=== PATIENT | female | born 1960 | race Caucasian/White ===

== ENCOUNTER 2024-05-04 14:41 | Outpatient (CLI) | payer MEDICARE, OTHER, SELFPAY ==
[2024-05-04 15:03] VITALS: BMI 22.4
[2024-05-04 15:34] LABS: Basophils # 0.1 K/mm3 (0-0.2); Eosinophils # 0.1 K/mm3 (0.0-0.4); Eosinophils % 1.8 % (0.1-12.0); Hematocrit 43.3 % (37.0-47.0); Hemoglobin 14.2 g/dL (12.2-16.2); Lymphocytes # 4.1 K/mm3 (0.7-4.5); Lymphocytes % 56.8 % (10-50); Mean Corpuscular HGB Conc 32.8 g/dL (31.8-35.4); Mean Corpuscular Hemoglobin 33.1 pg (27.0-31.2); Mean Platelet Volume 8.1 fl (7.4-10.4); Monocytes # 0.2 K/mm3 (0.1-1.0); Monocytes % 2.8 % (1.7-9.3); Neutrophils # 2.7 K/mm3 (1.8-7.8); Neutrophils % 37.5 % (37.0-80.0); Platelet Count 195 K/mm3 (142-424); Red Blood Count 4.28 M/mm3 (4.20-5.40); Red Cell Distribution Width 13.4 % (11.5-17.5); White Blood Count 7.2 K/mm3 (4.8-10.8)
[2024-05-04 15:35] LABS: MANUAL DIFFERENTIAL MANUAL DIFFERENTIAL (MANUAL DIFF)
--- NOTE | 2024-05-04 15:35 | PC.NURSE ---
1518 CBC/CMP obtained per MD order via venipuncture to R AC x 1 stick with butterfly needle. Patient tolerated well.
[2024-05-04 15:44] LABS: Chloride 103 mmol/L (98-107); Potassium 4.1 mmoL/L (3.5-5.1); Sodium 141 mmol/L (136-145)
[2024-05-04 15:47] LABS: Alanine Aminotransferase 37 U/L (12-78); Albumin Level 4.5 g/dl (3.5-5.0); Albumin/Globulin Ratio 1.5 (1.1-1.8); Alkaline Phosphatase 131 U/L (38-126); Anion Gap 8.1 mEq/L (5-15); Aspartate Amino Transferase 43 U/L (14-36); Bilirubin,Total 0.2 mg/dl (0.2-1.3); Blood Urea Nitrogen 16 mg/dl (7-17); Carbon Dioxide 34 mmol/L (22.0-30.0); Creatinine Clearance Estimated 61 mL/min (50-200); Estimated Glomerular Filt Rate 63 ml/min (>60); GFR (African American) 77 ML/MIN (>60); Total Protein,Serum 7.5 g/dl (6.3-8.2)
[2024-05-04 15:48] LABS: Calcium 10.2 mg/dl (8.4-10.2); Glucose 59 mg/dl (74-100)
[2024-05-04 15:55] LABS: Lymphocytes % 49 % (10-50); Monocytes % 5 % (2-9); Neutrophils % 46 % (42-76); Platelet Estimate Normal; RBC Morphology Normal; Total Cells Counted 100
== END 2024-05-04 15:25 | disposition home or self-care (01) ==
LOC: INF 14:59
PROVIDERS: PCP Internal Medicine; Visit Provider Internal Medicine Medical Oncology
DX: C91.10 Chronic lymphocytic leukemia of B-cell type not having achieved remission (principal)
CPT/HCPCS: 36415; 80053; 85007; 85025; 85027

== ENCOUNTER 2025-04-05 11:09 | Outpatient (CLI) | payer MEDICARE, OTHER, SELFPAY ==
--- OUTSIDE RECORDS SUMMARY | 2025-03-02 10:20 | XMS_ITS | Encounter Summary ---
Author Organization [facility] Address [address] [place] [address] Care Team Providers Care Pressure Tester Name Role Phone Dorian Guerra MD Primary Care Provider [phone] Reason for Referral * Consultation (Routine) - Authorized Specialty Diagnoses / Procedures Referred By Contac t Referred To Contact Diagnoses Type 1 diabetes mellitus with hyperglycemia (CMS/HCC) Essential (primary) hypertension Osteopenia of multiple sites Fracture Risk Assessment Score (FRAX) indicating greater than 20% risk for major osteoporosis-related fracture Traci Nathan DO [address] [address] Phone: tel: fax: Referral ID Status Reason Start Date Expiration Date V isits Requested Visits Authorized [id number] Authorized 03/02/2025 09/01/2026 1 1 Reason for Visit * Reason Comments Diabetes Encounter Details Date Type Department Care Team (Late st Contact Info) Description 03/02/2025 10:20 AM EDT Office Visit [facility] [address] [place] [address] Traci Nathan DO [address] [place] [address] Type 1 diabetes mellitus with hyperglycemia (CMS/HCC) (Primary Dx); Essential (primary) hypertension; Osteopenia of multiple sites; Hypercalcemia; Fracture Risk Assessment Score (FRAX) indicating greater than 20% risk for major osteoporosis-related fracture Social History Tobacco Use Types Packs/Day Years Used Date Smoking Tobacco: Every Day Cigarettes Smokeless Tobacco: Never Tobacco Cessation:Ready to Q uit: Not Asked; Counseling Given: Not Answered Alcohol Use Standard Drinks/Week Comments Not Currently 0 (1 standard drink = 0.6 oz pur e alcohol) PHQ-2 Answer Date Recorded Patient Health Questionnaire-2 Score 0 03/02/2025 Comments Unknown Sex and Gender Information Value Date Recorded Sex Assigned at Not on file Legal Sex Female 7:29 PM EDT Gender Identity Not on file Sexual Orientation Not on file documented as of this encounter Last Filed Vital Signs Vital Sign Reading Time Taken Comments Blood Pressure 155/73 03/02/2025 10:19 AM EDT Pulse 73 03/02/2025 10:19 AM EDT Temperature - - Respiratory Rate - - Oxygen Saturation - - Inhaled Oxygen Concentration - - Weight 66.7 kg (147 lb 0.8 oz) 03/02/2025 10:19 AM EDT Height 172.7 cm (5' 8 ) 03/02/2025 10:19 AM EDT Body Mass Index 22.36 03/02/2025 10:19 AM EDT documented in this encounter Functional Status * Over the past 2 weeks, how often have you been bothered by any of the following problems? Question Answer Date of Assessment Author Little interest or pleasure in doing things Not at all 03/02/2025 10:32 AM EDT [facility] Feeling down, depressed, or hopeless Not at all 03/02/2025 10:32 AM EDT [facility] Patient Health Questionnaire -2 Score 0 03/02/2025 10:32 AM EDT [facility] * If you checked off any problems on this questionnaire so far, Question Answer Date of Assessment Author How difficult have these problems made it for you to do your work, take care of things at home, or get along with other people? Not difficult at all 03/02/2025 10:32 AM EDT [facility] documented as of this encounter Miscellaneous Notes * Progress Notes - Traci Nathan DO - 03/02/2025 10:20 AM EDT Established Patient Visit [facility] Chief Complaint: Type 1 DM and Osteopenia with High FRAX Subjective Amanda Peraza is a 64 y.o. female who presents for an follow up evaluation of Diabetes Mellitis Type 1. Patient was diagnosed in 1992. Current symptoms/problems include back pain and falls. Her medical history is notable for osteopenia with elevated FRAX, tobacco use, and Celiac disease. She was last seen on 07/29/24. She had labs completed with PCP and listed below. She also brought DXA report. HPI Current treatment includes insulin pump Known diabetic complications: peripheral neuropathy Compliance at present is estimated to be excellent. Cardiovascular risk factors: diabetes mellitus, hypertension, and smoking/ tobacco exposure Is she on ANAM inhibitor or angiotensin II receptor brice? Yes Is she on a StatinYes Current diet: {diet habits:in general, a healthy diet Current exercise: {exercise types:Limited due to back pain Home blood sugar records: See below Data from continuous glucose monitoring system (DEXCOM) and Tandem Pump from: 02/17-03/02/25 were reviewed during the clinic visit. Overnight avg BGs: 100-150 Daytime avg BGs: 100-180 78 % in range 20 % high to very high Interpretation: Controlled Date of Last Eye Exam: 06/2024 Date of Last Foot Exam: 06/2024 What current meter are you using?: contour What pump type do you have?: Tandem T Slim What type of sensor do you have?: Dexcom G6 When was your last flu shot?: 07/2024 When did you have labs last?: 03/2024 The following portions of the chart were reviewed this encounter and updated as appropriate: Review of Systems Constitutional: Positive for fatigue. Respiratory: Negative for cough and shortness of breath. Cardiovascular: Negative for chest pain. Musculoskeletal: Positive for arthralgias and back pain. Allergic/Immunologic: Negative for immunocompromised state. Neurological: Positive for numbness. Psychiatric/Behavioral: Positive for sleep disturbance. Objective Physical Exam Constitutional: Appearance: Normal appearance. HENT: Head: Normocephalic and atraumatic. Right Ear: External ear normal. Left Ear: External ear normal. Nose: Nose normal. Mouth/Throat: Mouth: Mucous membranes are moist. Eyes: General: No scleral icterus. Cardiovascular: Rate and Rhythm: Normal rate and regular rhythm. Pulmonary: Effort: Pulmonary effort is normal. No respiratory distress. Breath sounds: Normal breath sounds. Musculoskeletal: Cervical back: Neck supple. Neurological: Mental Status: She is alert and oriented to person, place, and time. Psychiatric: Mood and Affect: Mood normal. Thought Content: Thought content normal. Lab Review Glucose, Plasma (mg/dL) Date Value 09/11/2022 601 (H) 05/19/2019 137 (H) 01/12/2018 216 (H) External Glucose (mg/dL) Date Value 03/25/2024 105 (H) 03/27/2023 47 (LL) POCT Hemoglobin A1C Date Value 06/02/2024 6.7 % 08/11/2023 6.7 05/26/2023 6.9 09/05/2021 6.8 % (A) 06/06/2021 7.2 % (A) 03/28/2021 7.7 % (A) CO2, Plasma (mmol/L) Date Value 09/11/2022 23 05/19/2019 29 01/12/2018 29 External Carbon Dioxide (CO2) (mmol/L) Date Value 03/25/2024 30 BUN, Plasma (mg/dL) Date Value 09/11/2022 23 05/19/2019 9 01/12/2018 13 External BUN (mg/dL) Date Value 03/25/2024 18 03/27/2023 14 Creatinine, Plasma (mg/dL) Date Value 09/11/2022 1.06 05/19/2019 0.94 01/12/2018 0.98 External Creatinine Blood (mg/dL) Date Value 03/25/2024 1.12 (H) 03/27/2023 1.11 (H) Labs: CBC with HGB 15.0 and HCT 46.6 and MCV 102 CMP with calcium 10.5 (H) and ALP 123 (H) FLP with LDL 107 MARGARET negative A1C 7.3% Imaging: DXA 02/14/25 T Scores LS -0.9 LFN -1.9 RFN -2.1 FRAX MOF 32.1% and Hip 5.3% VFA did not reveal fracture Interpretation: BMD consistent with osteopenia with most severe T score of -2.1 in RFN. FRAX is elevated and meets criteria for treatment Assessment/Plan Amanda was seen today for diabetes. Diagnoses and all orders for this visit: Type 1 diabetes mellitus with hyperglycemia ([facility]) (Primary) - Cancel: POCT glycosylated hemoglobin (Hb A1C) - Cancel: Follow Up [facility]; Future - Follow Up [facility]; Future Essential (primary) hypertension - Cancel: Follow Up [facility]; Future - Follow Up [facility]; Future Osteopenia of multiple sites - Renal Function Panel, Plasma; Future - PTH, intact; Future - Vitamin D 25 Hydroxy; Future - C-Telopeptide; Future - Bone Specific Alkaline Phosphatase; Future - Cancel: Follow Up [facility]; Future - Follow Up [facility]; Future Hypercalcemia - Renal Function Panel, Plasma; Future - PTH, intact; Future - Vitamin D 25 Hydroxy; Future Fracture Risk Assessment Score (FRAX) indicating greater than 20% risk for major osteoporosis-related fracture - Cancel: Follow Up [facility]; Future - Follow Up [facility]; Future Type 1 Diabetes Mellitus, controlled, complicated by peripheral neuropathy -A1C was 7.3% with PCP -CGM reviewed and notable for 78% without significant hypoglycemia -Current regimen of Tandem pump and DexCom -They are due for eye exam and up to date with labs PLAN: -Continue current settings for now without changes -Continue CGM for intensive glycemic monitoring and use for titration with insulin pump -Encourage daily foot care -Continue ARB and statin Osteopenia with Elevated FRAX Hypercalcemia -Denies prior fragility fractures -DXA above consistent with osteopenia and high FRAX -Previously received Reclast and last dose was 2017 -Labs did note high calcium level of 10.5 and high ALP PLAN: -Will check PTH, RFP, Vitamin D, along with BTM (CTX and BSAP) -Likely would benefit from therapy given it has been 8 years since last treatment and very high FRAX scores -Encourage smoking cessation and weight bearing exercises Chronic Back Pain -Worsened -Reports worsening low back and hip pain -Previously was on Morphine but then was tapered off due to not being able to get it PLAN: -Encouraged her to discuss Pain Management referral with PCP HTN -BP above goal -Current regimen of Valsartan and Amlodipine PLAN: -May be related to pain -Monitor for now but may need additional medication RTC in 4 months The following Diabetes education was reviewed: []SBGM to evaluate dose needs [x]Insulin coverage with carbohydrate intake []Site rotation [] Exercise impact on glucose levels []Driving safety related to diabetes []Sick day management []Ketone testing []Over treatment of hypoglycemia [x] Hypoglycemia management []Call-in line use []Insulin pump pros and cons []Sensor home use []Pump class offerings []Cait phenomena []Somogyi effect [] Alcohol related to diabetes []Benefits of written records [x]Pre-meal Bolusing [x]Daily foot care [x] Healthy diet and regular exercise [x]Long-term complications related to poor diabetes management [] Injection timing related to changes in activity/exercise I personally spent a total of 60 minutes on this encounter. This time includes face to face with patient, counseling and discussion and/or coordination of care. Electronically signed by: Traci Nathan DO [facility] [address] [place] [address]. [address] [place]. [address] PHONE [phone] FAX: [phone] Post Visit Addendum: Labs reviewed. PTH is high but calcium now normal. BTM upper/normal. Vitamin D okay. Likely has primary hyperparathyroidism but given normal calcium can hold off on work up for now. Will repeat levels in 3 months when she comes back to see me and can decide if further evaluation is needed. Holding off on treatment for BMD until parathyroid is assessed at next visit. Called and discussed with her. Component Latest Ref Rng 03/02/2025 Glucose 74 - 99 mg/dL 231 (H) BUN 8 - 23 mg/dL 14 Creatinine 0.60 - 1.10 mg/dL 0.94 BUN/Creatinine Ratio 15 Sodium 136 - 145 mmol/L 140 Potassium 3.6 - 4.9 mmol/L 3.8 Chloride 97 - 107 mmol/L 100 CO2 22 - 29 mmol/L 27 Anion Gap 6 - 16 mmol/L 13 Calcium 8.9 - 10.2 mg/dL 9.9 Phosphorus 2.5 - 4.5 mg/dL 2.7 Albumin 3.5 - 5.2 g/dL 4.7 EGFR mL/min/1.73m*2 67.9 Bone Specific Alkaline Phosphatase ug/L 16.5 C Telopeptide Beta Cross Linked Serum Result pg/mL 302 Vit D, 25-Hydroxy 20.0 - 80.0 ng/mL 56.8 PTH Intact Total 9 - 77 pg/mL 164 (H) Legend: (H) High documented in this encounter Plan of Treatment Upcoming Encounters Date Type Department Care Team (Late st Contact Info) Description 06/01/2025 11:00 AM EDT Office Visit [facility] [address] [place] [address] Traci Nathan DO [address] [facility] [address] [place] [address] 08/10/2025 12:40 PM EDT Office Visit [facility] [address] [place] [address] Traci Nathan DO [address] [facility] [address] [place] [address] Scheduled Referrals Name Type Priority Associated Diagnoses Orde r Schedule Follow Up [facility] Outpatient Referral Routine Type 1 diabetes mellitus with hyperglycemia ([facility]/HCC) Essential (primary) hypertension Osteopenia of multiple sites Fracture Risk Assessment Score (FRAX) indicating greater than 20% risk for major osteoporosis-related fracture Expected: 07/03/2025, Expires: 04/02/2026 documented as of this encounter Results * Bone Specific Alkaline Phosphatase (03/02/2025 11:35 AM EDT) Pathologist [facility] Bone Specific Alkaline Phosphatase 16.5 ug/L 03/02/2025 2:31 PM EDT [facility] Comment: BSAP (Ostase) Reference Values, Female, age 18 years and up: Premenopausal: 4.5 to 16.9 ug/L Postmenopausal: 7.0 to 22.4 ug/L Blood Venous blood specimen / Unknown Venipuncture / Unknown 03/02/2025 11:35 AM EDT 03/02/2025 11:36 AM EDT us Traci Nathan DO LAB REF LAB BLOOD AND FLUID ORD Final Result [facility] [address] [place] [address] * C-Telopeptide (03/02/2025 11:35 AM EDT) Pathologist [facility] C Telopeptide Beta Cross Linked Serum Result 302 pg/mL 03/04/2025 1:12 AM EDT [facility] ([facility]HONATHAN) Blood Venous blood specimen / Unknown Venipuncture / Unknown 03/02/2025 11:35 AM EDT 03/02/2025 11:36 AM EDT Narrative [facility] JOSE M) - 03/04/2025 1:12 AM EDT Premenopausal Females: 136-689 pg/mL Postmenopausal Females: 177-1015 pg/mL REFERENCE INTERVAL: C-Telopeptide, [id number], Serum Access complete set of age- and/or gender-specific reference intervals for this test in the [facility] Test Directory ([employer]). Performed By: [employer] [address] [place] [address] Crew Supervisor: Martin Rico MD, PhD CLIA Number: [id number] Traci Nathan DO LAB BLOOD ORDERABLES Final Result [facility] [address] [place] [address] * Vitamin D 25 Hydroxy (03/02/2025 11:35 AM EDT) Pathologist [facility] Vitamin D 25 Hydroxy 56.8 20.0 - 80.0 ng/mL 03/02/2025 2:37 PM EDT [facility] Blood Venous blood specimen / Unknown Venipuncture / Unknown 03/02/2025 11:35 AM EDT 03/02/2025 11:36 AM EDT Narrative [facility] - 03/02/2025 2:37 PM EDT Testing performed on [employer] Zig[employer]agger, standardized against NIST SRM 2972. When testing samples from patients whose predominant form of vitamin D is vitamin D2, such as patients receiving vitamin D2 supplementation, results that are subtherapeutic should be confirmed with another method, such as LC-MS/MS, before being used for patient management. Vitamin D, 25-Hydroxy reference range, age 18 years and up: Deficiency: <12 ng/mL Insufficiency: 12 to 19 ng/mL Sufficiency: 20 to 80 ng/mL Possible toxicity: >100 ng/mL Traci Nathan DO LAB BLOOD ORDERABLES Final Result Performing Organization Address [facility] Co de Phone Number [facility] [address] [place] [address] * (ABNORMAL) PTH, intact (03/02/2025 11:35 AM EDT) PTH Intact Total 164(H) 9 - 77 pg/mL 03/02/2025 2:03 PM EDT [facility] Blood Venous blood specimen / Unknown Venipuncture / Unknown 03/02/2025 11:35 AM EDT 03/02/2025 11:36 AM EDT Narrative [facility] - 03/02/2025 2:03 PM EDT Assay performed by immunoassay at the [facility]. Performed on [employer] Zigzagger chemiluminescent immunoassay, tractable to the World Health Organization's first international standard for PTH from the [facility], Code 79/500. Results obtained from different test methods or kits cannot be used interchangeably. Traci Nathan DO LAB BLOOD ORDERABLES Final Result Performing Organization Address [facility] de Phone Number [facility] [address] [place] [address] * (ABNORMAL) Renal Function Panel, Plasma (03/02/2025 11:35 AM EDT) Glucose, Plasma 231(H) 74 - 99 mg/dL 03/02/2025 1:54 PM EDT [facility] BUN, Plasma 14 8 - 23 mg/dL 03/02/2025 1:54 PM EDT [facility] Creatinine, Plasma 0.94 0.60 - 1.10 mg/dL 03/02/2025 1:54 PM EDT [facility] BUN/Creatinine Ratio 15 03/02/2025 1:54 PM EDT [facility] Sodium, Plasma 140 136 - 145 mmol/L 03/02/2025 1:54 PM EDT [facility] Potassium, Plasma 3.8 3.6 - 4.9 mmol/L 03/02/2025 1:54 PM EDT [facility] Chloride, Plasma 100 97 - 107 mmol/L 03/02/2025 1:54 PM EDT [facility] CO2, Plasma 27 22 - 29 mmol/L 03/02/2025 1:54 PM EDT [facility] Anion Gap 13 6 - 16 mmol/L 03/02/2025 1:54 PM EDT [facility] Total Calcium, Plasma 9.9 8.9 - 10.2 mg/dL 03/02/2025 1:54 PM EDT [facility] Phosphorus, Plasma 2.7 2.5 - 4.5 mg/dL 03/02/2025 1:54 PM EDT [facility] Albumin, Plasma 4.7 3.5 - 5.2 g/dL 03/02/2025 1:54 PM EDT [facility] eGFRcr 67.9 mL/min/1.7 3m*2 03/02/2025 1:54 PM EDT [facility] Comment:Reported eGFRcr in m L/min/1.73m2 is based the CKD-EPI 2020 equation that does not use a race coefficient. Blood Venous blood specimen / Unknown Venipuncture / Unknown 03/02/2025 11:35 AM EDT 03/02/2025 11:36 AM EDT us Traci Nathan DO LAB BLOOD ORDERABLES Final Result [facility] [address] [place] [address] documented in this encounter Visit Diagnoses Diagnosis Type 1 diabetes mellitus with hyperglycemia (CMS/HCC)- Primary Essential (primary) hypertension Unspecified essential hypertension Osteopenia of multiple sites Hypercalcemia Fracture Risk Assessment Score (FRAX) indicating greater than 20% risk for major osteoporosis-related fracture documented in this encounter Additional Health Concerns Assessment Noted Time A fall risk assessment has been complete d for the patient 02/19/2023 10:03 AM EDT A Body Mass Index follow-up plan has been documented for the patient 03/02/2025 2:57 PM EDT documented as of this encounter Care Teams Pressure Tester Relationship Specialty Start Date End Date Dorian Guerra MD [address] [place] [address] PCP - General 02/23/21 documented as of this encounter
--- OUTSIDE RECORDS SUMMARY | 2025-04-05 11:12 | XMS_ITS | Continuity of Care Document ---
Author Organization [facility], [facility] Address [address] [address] Care Team Providers Care Floriculture Professor Name Role Phone MARIO STINSON Hematology/Oncology TOD CERNA Primary Care Provider LORRAINE RIGGS Summer Nanny Assessment Encounter Date Assessment Date Assessment LastModified by Organization Details LastModified Time 03/23/2025 03/23/2025 Check labs u/s abd egd and colon mashmun Not available 03/23/2025 13:15:51 Plan of Treatment Reminders Order Date Submit Date Provider Last Modified By Organization Details Last Modified Time Details Appointments ULTRASO UND 2024 07:30A M ULTRASOUND Not available Not available Not available ESC-DBL 2024 10:30A M BEE MONTANA MD Not available Not available Not available RECHECK 2025 12:40P M BEE MONTANA MD Not available Not available Not available FOLLOW UP DAK 2025 11:30A M LORRAINE RIGGS MD Not available Not available Not available Lab None recorde d. Referral None recorde d. Procedures None recorde d. Surgeries None recorde d. Imaging None recorde d. Medication Orders Relisto r 150 mg tablet 2024 025 [id number], [address] [address], [place], [place], [id number], 03/23/2025 13:16:37 Patient TargetsNo targets recorded. Patient InstructionsNo instructions recorded. Reason for Referral None Reported. Problems Name Problem SNOMED Code Status Onset Date Resolution Date Notes Provider Name and Address Organization Details Recorded Time Irritable bowel syndrome with diarrhea 518036904 Active 2015 From Automated Load;Provi arpita: Bee Montana;St atus: Active Not Available [facility] 7 06:01:19 Headache 63201223 Active 2015 From Automated Load;Provi arpita: Yovany Chappell;Stat us: Active Not Available [facility] 7 08:05:17 Restless legs 49744358 Active 2015 From Automated Load;Provi arpita: Yovany Chappell;Stat us: Active Not Available [facility] 7 08:20:24 B-cell chronic lymphocyt ic leukemia Active 2017 MARIO STINSON MD [address] [place] [address], [address] , [facility] 8 15:28:43 Constipat ion 45668203 Active 2015 From Automated Load;Provi arpita: Bee Montana;St atus: Active Not Available [facility] 6 03:08:26 Abdominal bloating 178848079 Active 2015 From Automated Load;Provi arpita: Bee Montana;St atus: Active Not Available [facility] 6 03:08:26 Diarrhea 61604130 Active 2015 From Automated Load;Provi arpita: Bee Montana;St atus: Active Not Available [facility] 6 03:08:26 Upper abdominal pain 92028396 Active 2015 From Automated Load;Provi arpita: Bee Montana;St atus: Active Not Available [facility] 6 03:08:26 Migraine without aura 09627436 Active 2015 From Automated Load;Provi arpita: Yovany Chappell;Stat us: Active Not Available [facility] 6 03:08:26 Celiac disease 436620971 Active 2015 From Automated Load;Provi arpita: Bee Montana;St atus: Active Not Available [facility] 6 03:08:26 Irritable bowel syndrome 83497417 Active 2015 From Automated Load;Provi arpita: Bee Montana;St atus: Active Not Available [facility] 6 03:08:26 Lower abdominal pain 38200334 Active 2015 From Automated Load;Provi arpita: Bee Montana;St atus: Active Not Available [facility] 6 03:08:26 Problem Notes None recorded. Procedures Surgical History Date Name Laterality Status Provider Name and Address Organization Details Recorded Time 025 Destruction Premalignant Lesion(s) completed Susan Louise [facility] 03/17/2025 11:47:30 024 DAK - ED&C; trunk,arm,leg completed Ne Kelly [facility] 03/25/2024 16:03:52 024 Destruction BN Lesions completed [facility] 03/25/2024 16:06:44 024 Biopsy Skin Lesion; Tangential completed Minda Garcias [facility] 03/16/2024 11:54:04 017 Reclast Infusion completed Shwetha Lindo [facility] 08/29/2017 16:17:02 017 Electromyography (EMG) with Nerve Conduction Study (NCV) completed Flor Harvey [facility] 08/21/2017 09:01:34 Hysterectomy completed [facility] 01/14/2018 16:02:38 Other completed Juany Huang [facility] 05/20/2017 15:12:35 [facility] 01/14/2018 16:08:29 Carpal tunnel surgery completed [facility] 01/14/2018 15:56:59 Knee [facility] 01/14/2018 16:03:09 Imaging Results None recorded. Procedure Notes None recorded. Medical Equipment None Reported. Allergies No known drug allergies Medications Name Sig Start Date Stop Date Status Note LastModified by Organization Details LastModified Time Prescript ion - Prior Authoriza tion Request 12/26 completed Not Available Not Available Not Available Pravachol 40 mg tablet Every night at bedtime active Frequenc y: qhs;Medi cation Descript ion: pravasta tin; Dosage:1 ; Route:or al; refills: 0 Not Available Not Available Not Available Neurontin 300 mg capsule Take 1 capsule twice a day by oral route. 04/22 completed Not Available Not Available Not Available Stool Softener 100 mg capsule Take 2 capsules every day by oral route. 12/26 completed Not Available Not Available Not Available Lasix 40 mg tablet 2 daily 2008 active Duration : 30 days;Sagar quency: daily;Al t Frequenc y: as direct.; Medicati on Descript ion: furosemi de; Dosage:2 ; Route:or al; refills: 5; Quantity :30 tablet Not Available Not Available Not Available Prilosec 20 mg capsule,d elayed release Every night at bedtime 04/22 completed Frequenc y: qhs;Medi cation Descript ion: omeprazo le; Dosage:1 ; Route:or al; refills: 5; Quantity :30 delayed release capsule Not Available Not Available Not Available Requip 1 mg tablet Take 4 tablets every day by oral route. active Instruct ions: 1 IN EVENING AND 2 AT BEDTIME; Medicati on Descript ion: ropiniro le; Route:or al; refills: 0 Not Available Not Available Not Available Neurontin 600 mg tablet Take 1 tablet twice a day by oral route. active in the evening and at bedtime Not Available Not Available Not Available magnesium oxide 400 mg (241.3 mg magnesium ) tablet Take 5 capsule( s) every day by oral route. 2024 active Not Available Not Available Not Avai lable Lamictal 200 mg tablet Two times a day active Duration : 10 days;Sagar quency: bid;Medi cation Descript ion: lamotrig ine; Route:or al; refills: 0; Quantity :60 tablet Not Available Not Available Not Available Humalog U-100 Insulin 100 unit/mL subcutane ous solution 10-40 units before meals dependin g on meals 2016 active Not Available Not Available Not Avai lable valsartan 320 mg tablet Take 1 tablet every day by oral route. active Not Available Not Available No t Available Cozaar 100 mg tablet Take 1 tablet every day by oral route. 03/27 completed Not Available Not Available Not Available aspirin 81 mg tablet Daily active Duration : 30 days;Sagar quency: daily;Me dication Descript ion: aspirin; Dosage:1 ; Route:or al; refills: 0; Quantity :30 tablet Not Available Not Available Not Available Fiber-Tab s 625 mg tablet 500mg tab 2 tabs am active Medicati on Descript ion: polycarb ophil; Route:or al; refills: 0 Not Available Not Available Not Available Ambien 10 mg tablet Bedtime active Duration : 20 days;Ins truction s: as needed for insomnia ;Frequen cy: hs;Alt Frequenc y: prn;Medi cation Descript ion: zolpidem ; Dosage:1 ; Route:or al; refills: 0; Quantity :30 tablet Not Available Not Available Not Available Xanax 1 mg tablet Daily active Duration : 20 days;Sagar quency: daily;Al t Frequenc y: prn;Medi cation Descript ion: alprazol am; Dosage:1 ; Route:or al; refills: 0; Quantity :20 tablet Not Available Not Available Not Available Cozaar 50 mg tablet Daily 12/14 completed Frequenc y: daily;Me dication Descript ion: losartan ; Dosage:1 ; Route:or al; refills: 5; Quantity :30 tablet Not Available Not Available Not Available Lyrica 50 mg capsule Bedtime 05/20 completed Frequenc y: hs;Medic ation Descript ion: pregabal in; Dosage:1 ; Route:or al; refills: 0 Not Available Not Available Not Available potassium chloride 10mEq 2 tabs bid active Instruct ions: 2 IN MORNING AND 2 AT LUNCH;Me dication Descript ion: potassiu m chloride ; refills: 5 Not Available Not Available Not Available Morphine Sulfate CR 10mg QD 03/17 completed Not Available Not Available Not Available Calcium 600 1,200 mg Daily 2008 active Frequenc y: daily;Me dication Descript ion: calcium carbonat e; Dosage:1 ; Route:or al; refills: 0 Not Available Not Available Not Available amlodipin e 5mg po daily active Not Available Not Available No t Available Percocet PRN active Medicati on Descript ion: acetamin ophen-ox ycodone; Route:or al; refills: 0; Quantity :6 tablet Not Available Not Available Not Available cyclobenz aprine active Not Available Not Available Not Available Vitamin D3 2000mg Daily 2008 active Frequenc y: daily;Me dication Descript ion: cholecal ciferol; Dosage:2 ; Route:or al; refills: 0 Not Available Not Available Not Available Reclast 5 mg/100 mL intraveno us piggyback Inject 5 mg by intraven ous route. 03/27 completed Not Available Not Available Not Available Neupro 4 mg/24 hour transderm al 24 hour patch Daily 06/04 completed Frequenc y: daily;Me dication Descript ion: rotigoti ne; Dosage:1 ; Route:tr ansderma l; refills: 12; Quantity :30 film, extended release Not Available Not Available Not Available Anne 10 mg capsule,e xtended release Twice aday 03/27 completed Frequenc y: prn;Medi cation Descript ion: morphine ; Dosage:1 ; Route:or al; refills: 0; Quantity :30 capsule, extended release Not Available Not Available Not Available Pristiq 100 mg tablet,ex tended release Daily active Frequenc y: daily;Me dication Descript ion: desvenla faxine; Dosage:1 ; Route:or al; refills: 0 Not Available Not Available Not Available Relistor 12 mg/0.6 mL subcutane ous kit Every morning 06/04 completed Frequenc y: qam;Medi cation Descript ion: methylna ltrexone ; Dosage:3 ; refills: 3; Quantity :90 Not Available Not Available Not Available magnesium 400 mg (as magnesium oxide) capsule Take 5 capsule( s) every day by oral route. 03/27 completed 1 taking 3 daily changed to tablets per request from pharmacy . Not Available Not Available Not Available Contour Next Test Strips test 4-5 times daily. E10.65 2017 active Not Available Not Available Not Avai lable Contour Next Test Strips test 4-5 times daily. E10.8 06/27 completed Not Available Not Available Not Available Movantik 25 mg tablet Daily 06/04 completed Frequenc y: daily;Me dication Descript ion: naloxego l; Dosage:1 ; Route:or al; refills: 5; Quantity :30 tablet Not Available Not Available Not Available Relistor 150 mg tablet Take 3 tablets every day by oral route. 2024 active Not Available Not Available Not Avai lable Trulance 3 mg tablet TAKE 1 TABLET BY MOUTH EVERY DAY 03/25 completed dc Not Available Not Available Not Available Fluzone Quad 2016-(P F) 60 mcg(15 mcgx4)/0. 5 mL intramusc ular syringe INJECT 0.5 MILLILIT ER (60 MCG) BY INTRAMUS CULAR ROUTE ONCE 01/14 completed Not Available Not Available Not Available Plenvu 140 gram-9 gram-5.2 gram powder packs DIRECTED 03/27 completed Not Available Not Available Not Available Vitals Date Recorded Body height Body mass index (BMI) Body weight Heart rate Oxygen saturation Oxygen saturation in Arterial blood by Pulse oximetry Respiratory rate Systolic blood pressure Diastolic blood pressure Provider Name and Address Organization Details Last Updated DateTime 5 172.72 cm 22.4 kg/m2 91957.4 8 g 80 /min 95 % 95 % 16 /min 120 mm[Hg] 74 mm[Hg] Concepción Salvador [facility] 5 12:58:08 Social History Question Answer Notes LastModified by Organizat ion Details LastModified Time Tobacco Smoking Status Current Every Day Smoker Juany Huang [facility] 05/20/2017 14:59:19 What Was The Date Of Your Most Recent Tobacco Screening? 12/25/2018 Information not available 11/30/2019 Has Tobacco Cessation Counseling Been Provided? Yes [email or web address] Information not available 08/20/2017 On What Date Was Tobacco Cessation Counseling Provided? 12/25/2018 [email or web address] Information not available 12/25/2018 Sex: Unknown Functional Status Question Answer Note LastModified by Organization D etails LastModified Time What is your level of alcohol consumption? None [email or web address] Information not available 05/20/2017 Mental Status None recorded. Family History Relationship Description Onset Age of this Age Resolved Age Notes LastModified by Organization Details LastModified Time Unspecified Relation Family history of malignant neoplasm [email or web address] Not available 12/17 13:27:52 Unspecified Relation Myocardial infarction [email or web address] Not available 04/2017 13:28:00 Unspecified Relation Heart disease [email or web address] Not available 12/17 13:28:08 Unspecified Relation Hypertensive disorder [email or web address] Not available 12/17 13:28:15 Unspecified Relation Family history of stroke [email or web address] Not available 12/17 13:28:24 Unspecified Relation Disorder of thyroid gland [email or web address] Not available 12/17 13:28:33 Unspecified Relation Arthritis [email or web address] Not available 04/2017 13:28:42 Medical History Condition Response Diabetes Y Anxiety Disorder Y Other Bleeding Disorder Y Arthritis N Emphysema N Acid Reflux (GERD) Y Asthma N Depression Y COPD N High Cholesterol Y Heart Disease N Rheumatoid Arthritis N Headaches Y Hypertension Y Gynecological HistoryNo gynecological history recorded. Obstetrics History GPAL:G 0 P 0 0 0 0 Immunizations Vaccine Type Date Status Note Provider Nam e and Address Organization Details Recorded Time Influenza, split virus, quadrivalent, PF 06/27/2017 completed Not Available [facility] 0 02:51:12 Past Encounters Encounter ID Performer Location Encounter Start Date Encounter Closed Date Diagnosis/Indication Diagnosis SNOMED-CT Code Diagnosis ICD10 Code Diagnosis Note [id number] LORRAINE RIGGS MD [address] [address] 03/17/2025 11:28:04 03/17/2025 11:59:52 Multiple benign melanocytic nevi 464323439 D22.5 - Benign lesions seen on exam today- SPF 30 or higher broad-spec trum sunscreen recommende d with re-applica tion every 2 hours- Discussed sun protection measures, including wide-brimm ed hat, sun-protec tive clothing, and avoidance of sun during peak hours of 10am-4pm- Instructed to monitor for changes and to call us for appointmen t with any changing or worrisome lesions Seborrheic keratosis 394 958372 L82.1 - Benign overgrowth s of skin - Hereditary Senile angioma 0790187 I 78.1 - Benign blood vessel growths - Hereditary Solar lentigo 07452961 L 81.4 - Benign brown spots - Sun-induce d History of malignant neoplasm of skin 522354341 Z85.828 L90.5 - No evidence of recurrence today - Call with any worrisome lesions or if treated lesions return - Return at regular intervals for skin exam as recommende d Actinic keratosis 580490 007 L57.0 Actinic keratoses are precancero us lesions that may progress to squamous cell carcinoma if untreated. UV light and genetics may increase risk. Treated lesions should blister, scab over, and heal within a few weeks. If treated lesion(s) does not resolve within 1-2 months, patient agrees to follow up for re-evaluat ion. Risks of LN2 include scarring and recurrence of lesion. No wound care is needed.adv ised to fup if place on back is not resolved - may need Bx [id number] BEE MONTANA MD [facility] [address] [facility], [address] [place] [address] 03/23/2025 12:52:26 03/23/2025 13:25:12 Celiac disease 725191434 K90.0 Cont gluten free diet. Irritable bowel syndrome characterized by constipation 926453092 K58.1 off trulanceus ing mag ox doing wellfiber and stool softner Therapeuti c opioid induced constipation 9224066574 05400 K59.03 using percocet prn -- much less than in past History of adenomatous polyp of colon 625733865 Z86.0101 2025 Alkaline p hosphatase above reference range 673280348 R74.8 Epigastric pain 70067877 R10.13 Health Concerns Section Related Observation LastModified by Organization Detai ls LastModified Time None Recorded Concern Status LastModified by Organization Details LastModified Time None Recorded Payers Encounter Date Sequence Insurance Name Policy Number Policy Peña Covered Member ID Peña Member ID Guarantor Name 03/23/2025 1 [place] Amanda Peraza [id number] Amanda Peraza 03/23/2025 2 [facility] ([facility]) [id number] [place] Peraza [id number] Amanda Peraza Notes Date Note Type Note Provider Name and Address Organization Details Recorded Time 03/23/2025 text/html cataractsabout t o have surgerybm much better -- daily bm -- better since stopping daily morphineuses rare percocet 1-2 a weekstarted diarrhea in past few weeksepigas pain ast few weeks BEE MONTANA MD [address] [place], [address], [facility] 03/23/2025 13:16:29 OBGyn Episode No OBEpisode recorded.
--- OUTSIDE RECORDS SUMMARY | 2025-04-05 11:12 | XMS_ITS | Encounter Summary ---
Author Organization [facility] Address [address] [place] [address] Care Team Providers Care Logistics Supervisor Name Role Phone Dorian Guerra MD Primary Care Provider [phone]- [phone] Reason for Visit * Reason Onset Date Comments Med Refill 03/09/2025 Encounter Details Date Type Department Care Team (Late st Contact Info) Description 03/09/2025 Refill Malaika Whitley Endocrinology [address] [place] [address] Traci Nathan, DO [address] [address] Type 1 diabetes mellitus with diabetic polyneuropathy (CMS/HCC) Social History Tobacco Use Types Packs/Day Years Used Date Smoking Tobacco: Every Day Cigarettes Smokeless Tobacco: Never Alcohol Use Standard Drinks/Week Comments Not Currently 0 (1 standard drink = 0.6 oz pur e alcohol) PHQ-2 Answer Date Recorded Patient Health Questionnaire-2 Score 0 03/02/2025 Comments Unknown Sex and Gender Information Value Date Recorded Sex Assigned at Not on file Legal Sex Female 7:29 PM EDT Gender Identity Not on file Sexual Orientation Not on file documented as of this encounter Miscellaneous Notes * Telephone Encounter - Lacy Camargo PharmD - 03/09/2025 12:38 PM EDT 2 medication(s) has been approved per protocol. documented in this encounter Plan of Treatment Upcoming Encounters Date Type Department Care Team (Late st Contact Info) Description 06/01/2025 11:00 AM EDT Office Visit [facility] Endocrinology [address] [place] [phone] Traci Nathan, DO [address] [facility] [address] [place] [address] 08/10/2025 12:40 PM EDT Office Visit [facility] Endocrinology [address] [place] [address] Traci Nathan, [address] [address] documented as of this encounter Visit Diagnoses Diagnosis Type 1 diabetes mellitus with diabetic polyneuropathy (CMS/HCC) documented in this encounter Additional Health Concerns Assessment Noted Time A fall risk assessment has been complete d for the patient 02/19/2023 10:03 AM EDT A Body Mass Index follow-up plan has been documented for the patient 03/02/2025 2:57 PM EDT documented as of this encounter Care Teams Logistics Supervisor Relationship Specialty Start Date End Date Dorian Guerra MD [address] [place] [address] PCP - General 02/23/21 documented as of this encounter
--- OUTSIDE RECORDS SUMMARY | 2025-04-05 11:12 | XMS_ITS | Encounter Summary ---
Author Organization [facility] Address [address] [place] [address] Care Team Providers Care Brusher Hand Name Role Phone Dorian Guerra MD Primary Care Provider [phone]- [phone] Encounter Details Date Type Department Care Team (Late st Contact Info) Description 03/23/2025 Orders Only [facility] [address] [place] [phone] Rubio Montana MD [address] [place] [address] Social History Tobacco Use Types Packs/Day Years [...] on file documented as of this encounter Plan of Treatment Upcoming Encounters Date Type Department Care Team (Late st Contact Info) Description 06/01/2025 11:00 AM EDT Office Visit Malaika Valle [facility] Endocrinology [address] [place] [address] Traci Nathan DO [address] [address] 08/10/2025 12:40 PM EDT Office Visit [facility] Endocrinology [address] [place] [address] Traci Nathan, DO [address] [place] [address] documented as of this encounter Procedures Procedure Name Priority Date/Time Associated Diagnosis Comments COMPREHENSIVE METABOLIC PANEL, PLASMA Routine 03/23/2025 2:27 PM EDT documented in this encounter Results * (ABNORMAL) Comprehensive Metabolic Panel, Plasma (03/23/2025 2:27 PM EDT) External Glucose 90 74 - 100 mg/dL 03/23/2025 3:43 PM EDT [facility] External BUN 11 6 - 20 mg/dL 03/23/2025 3:43 PM EDT [facility] External Creatinine Blood 1.03(H) 0.50 - 0.95 mg/dL 03/23/2025 3:43 PM EDT [facility] External BUN/Creat Ratio 11 10 - 20 (calc) 03/23/2025 3:43 PM EDT [facility] External Sodium 142 136 - 145 mmol/L 03/23/2025 3:43 PM EDT [facility] External Potassium 3.7 3.4 - 5.0 mmol/L 03/23/2025 3:43 PM EDT [facility] External Chloride 102 98 - 107 mmol/L 03/23/2025 3:43 PM EDT [facility] External Carbon Dioxide (CO2) 26 22 - 31 mmol/L 03/23/2025 3:43 PM EDT [facility] External Anion Gap (AG) 14 7 - 25 (calc) 03/23/2025 3:43 PM EDT [facility] External Calcium 10.1 8.6 - 10.2 mg/dL 03/23/2025 3:43 PM EDT [facility] External Total Protein 7.0 6.4 - 8.3 g/dL 03/23/2025 3:43 PM EDT [facility] External Albumin 4.7 3.5 - 5.2 g/dL 03/23/2025 3:43 PM EDT [facility] External Globulin 2.3 1.5 - 4.5 025 3:43 PM EDT [facility] External Albumin/Globulin Ratio 2.0 1.1 - 2.5 (calc) 03/23/2025 3:43 PM EDT [facility] External Bilirubin Total 0.2 0.1 - 1.2 mg/dL 03/23/2025 3:43 PM EDT [facility] External Alkaline Phosphatase 120 30 - 121 U/L 03/23/2025 3:43 PM EDT [facility] External AST (SGOT) 20 0 - 32 U/L 03/23/2025 3:43 PM EDT [facility] External ALT (SGPT) 17 0 - 33 U/L 03/23/2025 3:43 PM EDT [facility] External Estimated GFR 60 >=60 03/23/2025 3:43 PM EDT [facility] Comment: NOTE New calculation for GFR (CKD-EPI 2020) is formulated without race adjustment factors at the recommendation of the National Kidney Foundation and [place] [employer]ph[employer]. This calculation has not been validated in women. For pediatric patients refer to https://www.kidney.org/professionals/KDOQI/gfr_calculatorPed 03/23/2025 2:27 PM EDT 03/23/2025 2:45 PM EDT us Rubio Montana MD LAB BLOOD ORDERABLES Final R esult [facility] [place] [address], documented in this encounter Visit Diagnoses Not on filedocumented in this encounter Additional Health Concerns Assessment Noted Time A fall risk assessment has been complete d for the patient 02/19/2023 10:03 AM EDT A Body Mass Index follow-up plan has been documented for the patient 03/02/2025 2:57 PM EDT documented as of this encounter Care Teams Brusher Hand Relationship Specialty Start Date End Date Dorian Guerra MD [address] [place] [address] PCP - General 02/23/21 documented as of this encounter
--- OUTSIDE RECORDS SUMMARY | 2025-04-05 11:12 | XMS_ITS | Encounter Summary ---
Author Organization [facility] Address [address] [place] [address] Care Team Providers Care Machine Carton Marker Name Role Phone Dorian Guerra MD Primary Care Provider +1- [phone] Encounter Details Date Type Department Care Team (Late st Contact Info) Description 03/23/2025 Orders Only [facility] [address] [place] [phone] Rubio Montaan MD [address] [place] [address] Social History Tobacco Use Types Packs/Day Years [...] 11:00 AM EDT Office Visit Malaika Valle [facility] Endocrinology [address] [place] [address] Traci Nathan DO [address] [address] 08/10/2025 12:40 PM EDT [facility] [address] [place] [address] Traci Nathan, DO [address] [place] [address] documented as of this encounter Procedures Procedure Name Priority Date/Time Associated Diagnosis Comments C-REACTIVE PROTEIN, PLASMA Routine 03/23/2025 2:27 PM EDT documented in this encounter Results * C-Reactive Protein, Plasma (03/23/2025 2:27 PM EDT) External C-Reactive Protein 0.14 0.00 - 0.49 mg/dL 03/23/2025 3:43 PM EDT [facility] 03/23/2025 2:27 PM EDT 03/23/2025 2:45 PM EDT us Rubio Montana MD LAB BLOOD ORDERABLES Final R esult Performing Organization Address City/State/[facility] Co de Phone Number [facility] [address] [place] [address], documented in this encounter Visit Diagnoses Not on filedocumented in this encounter Additional Health Concerns Assessment Noted Time A fall risk assessment has been complete d for the patient 02/19/2023 10:03 AM EDT A Body Mass Index follow-up plan has been documented for the patient 03/02/2025 2:57 PM EDT documented as of this encounter Care Teams Machine Carton Marker Relationship Specialty Start Date End Date Dorian Guerra MD [address] [place] [address] PCP - General 02/23/21 documented as of this encounter
--- OUTSIDE RECORDS SUMMARY | 2025-04-05 11:12 | XMS_ITS | Encounter Summary ---
Author Organization [facility] Address [address] [place] [address] Care Team Providers Care Child Care Specialist Name Role Phone Dorian Guerra MD Primary Care Provider +1- [phone] Encounter Details Date Type Department Care Team (Late st Contact Info) Description 03/27/2023 Orders Only [facility] [address] [place] [address] Rubio Montana MD [address] [place] [address] Social History Tobacco Use Types Packs/Day Years Used Date Smoking Tobacco: Every Day Smokeless Tobacco: Never Alcohol Use Standard Drinks/Week Comments Not Currently 0 (1 standard drink = 0.6 oz pur e alcohol) Comments Unknown Sex and Gender Information Value Date Recorded Sex Assigned at Not on file Legal Sex Female 7:29 PM EDT Gender Identity Not on file Sexual Orientation Not on file documented as of this encounter Plan of Treatment Upcoming Encounters Date Type Department Care Team (Late st Contact Info) Description 06/01/2025 11:00 AM EDT Office Visit Malaika Whitley Endocrinology [address] [place] [address] Traci Nathan DO [address] [facility] [address] [place] [address] 08/10/2025 12:40 PM EDT Office Visit [facility] Endocrinology [address] [place] [address] Traci Nathan, DO [address] [place] [address] documented as of this encounter Procedures Procedure Name Priority Date/Time Associated Diagnosis Comments VITAMIN B12, SERUM Routine 03/27/2023 1: 59 PM EDT documented in this encounter Results * (ABNORMAL) Vitamin B12, Serum (03/27/2023 1:59 PM EDT) External Vitamin B12 1,884(H) 232 - 1,245 pg/mL 03/27/2023 3:30 PM EDT [facility] 03/27/2023 1:59 PM EDT 03/27/2023 2:38 PM EDT Rubio Montana MD LAB BLOOD ORDERABLES Final R esult [facility] [address] [place] [address], documented in this encounter Visit Diagnoses Not on filedocumented in this encounter Additional Health Concerns Assessment Noted Time A fall risk assessment has been complete d for the patient 02/19/2023 10:03 AM EDT documented as of this encounter Care Teams Child Care Specialist Relationship Specialty Start Date End Date Dorian Guerra MD [address] [place] [address] PCP - General 02/23/21 documented as of this encounter
--- OUTSIDE RECORDS SUMMARY | 2025-04-05 11:12 | XMS_ITS | Encounter Summary ---
Author Organization [facility] Address [address] [place] [address] Care Team Providers Care Plastic Products Sales Representative Name Role Phone Dorian Guerra MD Primary Care Provider +1- [phone] Encounter Details Date Type Department Care Team (Late st Contact Info) Description 02/15/2025 Telephone [facility] Endocrinology [address] [place] [address] Bijal Lambert S, MICROBIOLOGY INSTRUCTOR [address] [facility] [address] [place] [address] Social History Tobacco Use Types Packs/Day Years [...] on file documented as of this encounter Functional Status * Over the [...] -2 Score 0 03/02/2025 10:32 AM EDT Morning, Prince Herrera * If you checked off any problems on this questionnaire so far, Question Answer Date of Assessment Author How difficult have these problems made it for you to do your work, take care of things at home, or get along with other people? Not difficult at all 03/02/2025 10:32 AM EDT Morning, Brennen Herrera documented as of this encounter Plan of Treatment Upcoming Encounters Date Type Department Care Team (Late st Contact Info) Description 06/01/2025 11:00 AM EDT Office Visit [facility] Endocrinology [address] [place] [address] Traci Nathan DO [address] [address] 08/10/2025 12:40 PM EDT Office Visit [facility] Endocrinology [address] [place] [address] Traci Nathan DO [address] [address] documented as of this encounter Visit Diagnoses Not on filedocumented in this encounter Additional Health Concerns Assessment Noted Time A fall risk assessment has been complete d for the patient 02/19/2023 10:03 AM EDT A Body Mass Index follow-up plan has been documented for the patient 07/29/2024 12:06 PM EDT documented as of this encounter Care Teams Plastic Products Sales Representative Relationship Specialty Start Date End Date Dorian Guerra MD [address] [place] [address] PCP - General 02/23/21 documented as of this encounter
--- OUTSIDE RECORDS SUMMARY | 2025-04-05 11:12 | XMS_ITS | Encounter Summary ---
Author Organization [facility] Address [address] [place] [address] Care Team Providers Care Women Designer Name Role Phone Dorian Guerra MD Primary Care Provider +1- [phone] Encounter Details Date Type Department Care Team (Late st Contact Info) Description 03/27/2023 Orders Only [facility] [address] [place] [address] Rubio Montana MD [address] [place] [address] Social History Tobacco Use Types Packs/Day Years [...] Visit Malaika Whitley Endocrinology [address] [place] [address] Traci Nathan DO [address] [facility] [address] [place] [address] 08/10/2025 12:40 PM EDT Office Visit [facility] Endocrinology [address] [place] [address] Traci Nathan, DO [address] [place] [address] documented as of this encounter Procedures Procedure Name Priority Date/Time Associated Diagnosis Comments C-REACTIVE PROTEIN, PLASMA Routine 03/27/2023 1:59 PM EDT documented in this encounter Results * C-Reactive Protein, Plasma (03/27/2023 1:59 PM EDT) External C-Reactive Protein 0.06 0.00 - 0.49 mg/dL 03/27/2023 4:13 PM EDT [facility] 03/27/2023 1:59 PM EDT 03/27/2023 2:22 PM EDT Rubio Montana MD LAB BLOOD ORDERABLES Final R esult [facility] [address] [place] [address], documented in this encounter Visit Diagnoses Not on filedocumented in this encounter Additional Health Concerns Assessment Noted Time A fall risk assessment has been complete d for the patient 02/19/2023 10:03 AM EDT documented as of this encounter Care Teams Women Designer Relationship Specialty Start Date End Date Dorian Guerra MD [address] [place] [address] PCP - General 02/23/21 documented as of this encounter
--- OUTSIDE RECORDS SUMMARY | 2025-04-05 11:12 | XMS_ITS | Encounter Summary ---
Author Organization [facility] Address [address] [place] [address] Care Team Providers Care Sales Representatives Name Role Phone Dorian Guerra MD Primary Care Provider +1- [phone] Encounter Details Date Type Department Care Team (Late st Contact Info) Description 03/27/2023 Orders Only [facility] [address] [place] [address] Rubio Montana MD [address] [place] [address] Social History Tobacco Use Types Packs/Day Years [...] Visit Malaika Whitley Endocrinology [address] [place] [address] Traci Nathan DO [address] [facility] [address] [place] [address] 08/10/2025 12:40 PM EDT Office Visit [facility] Endocrinology [address] [place] [address] Traci Nathan, DO [address] [place] [address] documented as of this encounter Procedures Procedure Name Priority Date/Time Associated Diagnosis Comments CBC WITH AUTO DIFFERENTIAL Routine 03/27/2023 1:59 PM EDT documented in this encounter Results * CBC and Differential (03/27/2023 1:59 PM EDT) External WBC 9.8 3.8 - 10.8 10*3/uL 03/27/2023 4:10 PM EDT [facility] External Red Blood Cell (RBC) 4.41 3.80 - 5.20 10*6/uL 03/27/2023 4:10 PM EDT [facility] External Hemoglobin 14.6 12.0 - 16.0 g/dL 03/27/2023 4:10 PM EDT [facility] External Hematocrit 43.0 35.0 - 47.0 % 03/27/2023 4:10 PM EDT [facility] External MCV 98 80 - 100 fL 03/27/2023 4:10 PM EDT [facility] External MCH 33 26 - 35 pg 03/27/2023 4:10 PM EDT [facility] External MCHC 34 32 - 36 g/dL 03/27/2023 4:10 PM EDT [facility] External RDW 13.1 11.0 - 15.0 % 03/27/2023 4:10 PM EDT [facility] External Mean Platelet Volume 7.8 6.2 - 10.5 fL 03/27/2023 4:10 PM EDT [facility] External Platelets 188 130 - 400 10*3/uL 03/27/2023 4:10 PM EDT [facility] External Neutrophil# 4.2 1.6 - 8.4 10*3/uL 03/27/2023 4:10 PM EDT [facility] External Lymphocyte# 4.4 0.4 - 5.1 10*3/uL 03/27/2023 4:10 PM EDT [facility] External Absolute Monocyte (Abs [place]) 1.1 0.0 - 1.2 10*3/uL 03/27/2023 4:10 PM EDT [facility] External Eosinophils# 0.1 0.0 - 0.8 10*3/uL 03/27/2023 4:10 PM EDT [facility] External Baso# 0.0 0.0 - 0.3 10*3/uL 03/27/2023 4:10 PM EDT [facility] External Neutrophils % 43.0 42.0 - 78.0 % 03/27/2023 4:09 PM EDT [facility] External Lymphocyte % 45.0 11.0 - 47.0 % 03/27/2023 4:09 PM EDT [facility] External Monocyte % 11.0 0.0 - 11.0 % 03/27/2023 4:09 PM EDT [facility] External Eosinophil% 1.0 0.0 - 7.0 % 03/27/2023 4:09 PM EDT [facility] External Basophil % 0.0 0.0 - 3.0 % 03/27/2023 4:09 PM EDT [facility] External Nucleated RBC%-Auto 0.3 0.0 - 0.9 % 03/27/2023 4:10 PM EDT [facility] External Nucleated RBC Absolute 0.03 Not Estab. 10*3/uL 03/27/2023 4:10 PM EDT [facility] 03/27/2023 1:59 PM EDT 03/27/2023 2:23 PM EDT us Rubio Montana MD LAB BLOOD ORDERABLES Final R esult [facility] [address] [place] [address], documented in this encounter Visit Diagnoses Not on filedocumented in this encounter Additional Health Concerns Assessment Noted Time A fall risk assessment has been complete d for the patient 02/19/2023 10:03 AM EDT documented as of this encounter Care Teams Sales Representatives Relationship Specialty Start Date End Date Dorian Guerra MD [address] [place] [address] PCP - General 02/23/21 documented as of this encounter
--- OUTSIDE RECORDS SUMMARY | 2025-04-05 11:12 | XMS_ITS | Encounter Summary ---
Author Organization [facility] Address [address] [place] [address] Care Team Providers Care Medical Laboratory Assistant Name Role Phone Dorian Guerra MD Primary Care Provider +1- [phone] Encounter Details Date Type Department Care Team (Late Contact Info) Description 03/09/2025 Telephone [facility] Endocrinology [address] [place] [address] Traci Nathan DO [address] [address] Social History Tobacco Use Types Packs/Day [...] Encounters Date Type Department Care Team (Late Contact Info) Description 06/01/2025 11:00 AM EDT Office Visit [facility] Endocrinology [address] [place] [address] Traci Nathan DO [address] [address] 08/10/2025 12:40 PM EDT [facility] [address] [place] [address] Traci Nathan, DO [address] [place] [address] documented as of this encounter Visit Diagnoses Not on filedocumented in this encounter Additional Health Concerns Assessment Noted Time A fall risk assessment has been complete d for the patient 02/19/2023 10:03 AM EDT A Body Mass Index follow-up plan has been documented for the patient 03/02/2025 2:57 PM EDT documented as of this encounter Care Teams Medical Laboratory Assistant Relationship Specialty Start Date End Date Dorian Guerra MD [address] [place] [address] PCP - General 02/23/21 documented as of this encounter
--- OUTSIDE RECORDS SUMMARY | 2025-04-05 11:12 | XMS_ITS | Encounter Summary ---
Author Organization [facility] Address [address] [place] [address] Care Team Providers Care Shale Miner Blasting Name Role Phone Dorian Guerra MD Primary Care Provider +1- [phone] Encounter Details Date Type Department Care Team (Late st Contact Info) Description 03/27/2023 Orders Only [facility] [address] [place] [address] Rubio Montana MD [address] [place] [address] Social History Tobacco Use Types Packs/Day Years [...] Visit Malaika Whitley Endocrinology [address] [place] [address] Traci Nathan DO [address] [facility] [address] [place] [address] 08/10/2025 12:40 PM EDT Office Visit [facility] Endocrinology [address] [place] [address] Traci Nathan, DO [address] [place] [address] documented as of this encounter Procedures Procedure Name Priority Date/Time Associated Diagnosis Comments MANUAL DIFFERENTIAL Routine 03/27/2023 1 :59 PM EDT documented in this encounter Results * (ABNORMAL) Manual Differential (03/27/2023 1:59 PM EDT) External Band Neutrophil% 0.0 0.0 - 7.0 % 03/27/2023 4:09 PM EDT [facility] External Atypical Lymph% 0 0 - 1 % 03/27/2023 4:09 PM EDT [facility] External Metamyelocyte % 0 0 - 1 % 03/27/2023 4:09 PM EDT [facility] External Myelocyte % 0 0 - 1 % 03/27/2023 4:09 PM EDT [facility] External Promyelocyte% 0 0 % 03/27/2023 4:09 PM EDT [facility] External Blast% 0 0 % 4:09 PM EDT [facility] External Nucleated RBC%-Manual 0 0 - 1 /100{WBC} 03/27/2023 4:09 PM EDT [facility] External Smudge Cells 0 0 /100{WBC} 03/27/2023 4:09 PM EDT [facility] External Platelet Morphology NORMAL 03/27/2023 4:10 PM EDT [facility] External Hypochromasia SLIGHT(A) 03/27/2023 4:10 PM EDT [facility] External Ovalocytes SLIGHT(A) 03/27/2023 4:10 PM EDT [facility] 03/27/2023 1:59 PM EDT 03/27/2023 2:23 PM EDT us Rubio Montana MD LAB BLOOD ORDERABLES Final R esult [facility] [address] [place] [address], documented in this encounter Visit Diagnoses Not on filedocumented in this encounter Additional Health Concerns Assessment Noted Time A fall risk assessment has been complete d for the patient 02/19/2023 10:03 AM EDT documented as of this encounter Care Teams Shale Miner Blasting Relationship Specialty Start Date End Date Dorian Guerra MD [address] [place] [address] PCP - General 02/23/21 documented as of this encounter
--- OUTSIDE RECORDS SUMMARY | 2025-04-05 11:12 | XMS_ITS | Data Portability ---
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 She is stable clinically and serologically. There is no indication for therapy at this time. Therefore, I recommended continued follow up with observation only. This will include return to clinic in 6 months with examination and lab work. I have asked Ms. Peraza to call if there are any questions or concerns at any time. [email or web address] Not available 06/29/2019 12:41:25 Plan of Treatment Reminders Order Date Submit Date Provider Last Modified By Organization Details Last Modified Time Details Appointments ULTRASO UND 2024 07:30A M ULTRASOUND Not available Not available Not available ESC-DBL 2024 10:30A M BEE LOMBARDO MD Not available Not available Not available RECHECK 2025 12:40P M BEE LOMBADRO MD Not available Not available Not available FOLLOW UP DAK 2025 11:30A M LORRAINE RIGGS MD Not available Not available Not available Lab None recorde d. Referral None recorde d. Procedures None recorde d. Surgeries None recorde d. Imaging None recorde d. Medication Orders None recorde d. Patient TargetsNo targets recorded. Patient InstructionsNo instructions recorded. Reason for Referral None Reported. Results Created Date Observation Date Name Description Value Unit Range Abnormal Flag Note LastModifiedBy Organization Detail LastModifiedTime 06/29/2006/29/2019 CBC w/ auto diff white blood cells 11.1 K/uL 3.8-10 .8 high Not Available [facility] [address] [place] [address], [phone], 06/29/2019 11:27:33 06/29/2006/29/2019 CBC w/ auto diff red blood cells 4.67 M/uL 3.80-5 .20 normal Not Available [facility] [address] [place] [address], [address], 06/29/2019 11:27:33 06/29/2006/29/2019 CBC w/ auto diff hemoglobin 15.3 g/dL 12.0-1 6.0 normal Not Available [facility] [address] [place] [address], [address], 06/29/2019 11:27:33 06/29/2006/29/2019 CBC w/ auto diff hematocrit 45.4 % 35.0-4 7.0 normal Not Available [facility] [address] [place] [address], [address], 06/29/2019 11:27:33 06/29/2006/29/2019 CBC w/ auto diff MCV 97 fL 80-100 normal Not Available [facility] [address] [place] [address], [address], 06/29/2019 11:27:33 06/29/2006/29/2019 CBC w/ auto diff MCH 33 pg 26-35 normal Not Available [facility] [address] [place] [address], [address], 06/29/2019 11:27:33 06/29/2006/29/2019 CBC w/ auto diff MCHC 34 g/dL 32-36 normal Not Available [facility] [address] [place] [address], [address], 06/29/2019 11:27:33 06/29/2006/29/2019 CBC w/ auto diff RDW 12.8 % 11.0-1 5.0 normal Not Available [facility] [address] [place] [address], [address], 06/29/2019 11:27:33 06/29/2006/29/2019 CBC w/ auto diff MPV 8.3 fL 6.2-10 .5 normal Not Available [facility] [address] [place] [address], [address], 06/29/2019 11:27:33 06/29/20 19 06/29/2019 CBC w/ auto diff platelet count 153 K/uL 130-40 0 normal Not Available [facility] [address] [place] [address], [address], 06/29/2019 11:27:33 06/29/2006/29/2019 CBC w/ auto diff neutrophil,a bsolute 4.8 K/uL 1.6-8. 4 normal Not Available [facility] [address] [place] [address], [address], 06/29/2019 11:27:33 06/29/2006/29/2019 CBC w/ auto diff lymphocyte,a bsolute 5.0 K/uL 0.4-5. 1 normal Not Available [facility] [address] [place] [address], [address], 06/29/2019 11:27:33 06/29/2006/29/2019 CBC w/ auto diff monocyte,abs olute 0.6 K/uL 0.0-1. 2 normal Not Available [facility] [address] [place] [address], [address], 06/29/2019 11:27:33 06/29/2006/29/2019 CBC w/ auto diff eosinophil,a bsolute 0.6 K/uL 0.0-0. 8 normal Not Available [facility] [address] [place] [address], [address], 06/29/2019 11:27:33 06/29/2006/29/2019 CBC w/ auto diff basophil,abs olute 0.2 K/uL 0.0-0. 3 normal Not Available [facility] [address] [place] [address], [address], 06/29/2019 11:27:33 06/29/2006/29/2019 CBC w/ auto diff % neutrophils 43.0 % 42.0-7 8.0 normal Not Available [facility] [address] [place] [address], [address], 06/29/2019 11:27:33 06/29/2006/29/2019 CBC w/ auto diff % lymphocytes 45.0 % 11.0-4 7.0 normal Not Available [facility] [address] [place] [address], [address], 06/29/2019 11:27:33 06/29/2006/29/2019 CBC w/ auto diff % monocytes 5.0 % 0.0-11 .0 normal Not Available [facility] [address] [place] [address], [address], 06/29/2019 11:27:33 06/29/2006/29/2019 CBC w/ auto diff % eosinophils 5.0 % 0.0-7. 0 normal Not Available [facility] [address] [place] [address], [address], 06/29/2019 11:27:33 06/29/2006/29/2019 CBC w/ auto diff % basophils 2.0 % 0.0-3. 0 normal Not Available [facility] [address] [place] [address], [address], 06/29/2019 11:27:33 06/29/2006/29/2019 CBC w/ auto diff nucleated red cells 0.9 % 0.0-0. 9 normal Not Available [facility] [address] [place] [address], [address], 06/29/2019 11:27:33 06/29/2001 0706/29/2019 CBC w/ auto diff nucleated RBCs, absolute 0.10 K/uL not estab. normal Not Available [facility] [address] [place] [address], [address], 06/29/2019 11:27:33 06/29/20 19 06/29/2019 diffe madelin valdovinosa l, blood % band neutrophils 0.0 % 0.0-7. 0 normal Not Available [facility] [address] [place] [address], [address], 06/29/2019 11:27:35 06/29/20 19 06/29/2019 diffe madelin valdovinosa l, blood % atypical lymphocytes 0 % 0-1 normal Not Available [facility] [address] [place] [address], [address], 06/29/2019 11:27:35 06/29/20 19 06/29/2019 diffe madelin valdovinosa l, blood % metamyelocyt es 0 % 0-1 normal Not Available [facility] [address] [place] [address], [address], 06/29/2019 11:27:35 06/29/20 19 06/29/2019 diffe madelin valdovinosa l, blood % myelocytes 0 % 0-1 normal Not Available [facility] [address] [place] [address], [address], 06/29/2019 11:27:35 06/29/20 19 06/29/2019 diffe derrell cassidy manua l, blood % promyelocyte s 0 % normal Not Available [facility] [address] [place] [address], [address], 06/29/2019 11:27:35 06/29/2006/29/2019 diffe derrell cassidy manua l, blood % blast 0 % normal Not Available [facility] [address] [place] [address], [address], 06/29/2019 11:27:35 06/29/20 19 06/29/2019 dayanara taylor, blood nucleated red cells 0 /100_ WBC normal Not Available [facility] [address] [place] [address], [address], 06/29/2019 11:27:35 06/29/20 19 06/29/2019 dayanara taylor, blood smudge cells 38 abnormal Not Available [facility] [address] [place] [address], [address], 06/29/2019 11:27:35 06/29/20 19 06/29/2019 dayanara taylor, blood RBC morphology NORMAL normal Not Available [facility] [address] [place] [address], [address], 06/29/2019 11:27:35 06/29/20 19 06/29/2019 dayanara taylor, blood platelet morphology NORMAL normal Not Available [facility] [address] [place] [address], [address], 06/29/2019 11:27:35 06/29/20 19 06/29/2019 CMP, serum or plasm a glucose 245 mg/dL 74-100 high Not Available [facility] [address] [place] [address], [address], 06/29/2019 11:37:08 06/29/20 19 06/29/2019 CMP, serum or plasm a blood urea nitrogen 14 mg/dL 6-20 normal Not Available [facility] [address] [place] [address], [address], 06/29/2019 11:37:08 06/29/20 19 06/29/2019 CMP, serum or plasm a creatinine 1.01 mg/dL 0.50-0 .95 high Not Available [facility] [address] [place] [address], [address], 06/29/2019 11:37:08 06/29/20 19 06/29/2019 CMP, serum or plasm a BUN/creatini ne ratio 14 (calc ) 10-20 normal Not Available [facility] [address] [place] [address], [address], 06/29/2019 11:37:08 06/29/2006/29/2019 CMP, serum or plasm a sodium 139 mmol/ L 136-14 5 normal Not Available [facility] [address] [place] [address], [address], 06/29/2019 11:37:08 06/29/2006/29/2019 CMP, serum or plasm a potassium 3.9 mmol/ L 3.4-5. 0 normal Not Available [facility] [address] [place] [address], [address], 06/29/2019 11:37:06/29/2006/29/2019 CMP, serum or plasm a chloride 98 mmol/ L 98-107 normal Not Available [facility] [address] [place] [address], [address], 06/29/2019 11:37:08 06/29/2006/29/2019 CMP, serum or plasm a carbon dioxide 26 mmol/ L 20-32 normal Not Available [facility] [address] [place] [address], [address], 06/29/2019 11:37:06/29/2006/29/2019 CMP, serum or plasm a anion gap 15 (calc ) 7-25 normal Not Available [facility] [address] [place] [address], [address], 06/29/2019 11:37:06/29/2006/29/2019 CMP, serum or plasm a calcium 9.7 mg/dL 8.6-10 .2 normal Not Available [facility] [address] [place] [address], [address], 06/29/2019 11:37:06/29/2006/29/2019 CMP, serum or plasm a total protein 7.1 g/dL 6.4-8. 3 normal Not Available [facility] [address] [place] [address], [address], 06/29/2019 11:37:06/29/2006/29/2019 CMP, serum or plasm a albumin 4.5 g/dL 3.5-5. 2 normal Not Available [facility] [address] [place] [address], [address], 06/29/2019 11:37:06/29/2006/29/2019 CMP, serum or plasm a globulin 2.6 g/dL_ (calc ) 1.5-4. 5 normal Not Available [facility] [address] [place] [address], [address], 06/29/2019 11:37:06/29/2006/29/2019 CMP, serum or plasm a albumin/glob ulin ratio 1.7 (calc ) 1.1-2. 5 normal Not Available [facility] [address] [place] [address], [address], 06/29/2019 11:37:08 06/29/2006/29/2019 CMP, serum or plasm a bilirubin, total <0.2 mg/dL 0.1-1. 2 normal Not Available [facility] [address] [place] [address], [address], 06/29/2019 11:37:08 06/29/2006/29/2019 CMP, serum or plasm a alkaline phosphatase 108 U/L 35-105 high Not Available [facility] [address] [place], [address], 06/29/2019 11:37:06/29/2006/29/2019 CMP, serum or plasm a AST 17 U/L 0-32 normal Not Available [facility] [address] [place] [address], [address], 06/29/2019 11:37:08 06/29/20 19 06/29/2019 CMP, serum or plasm a ALT 18 U/L 0-33 normal Not Available [facility] [address] [place], [address], 06/29/2019 11:37:08 06/29/20 19 06/29/2019 CMP, serum or plasm a GFR 71 >= 60 normal Not Available [facility] [address] [place], [address], 06/29/2019 11:37:08 06/29/20 19 06/29/2019 CMP, serum or plasm a GFR non- 61 >= 60 normal NOT E NEW calcu latio n for GFR is based on the Natio nal Kidne y Found ation CKD-E PI equat ion and allow s for repor ting GFR value s great er than 60 mL/mi n/1.7 3 m2. This calcu latio n has not been valid ated for patie nts less than 18 yrs., pregn ant women and Hispa nics. Chron ic kidne y disea se is defin ed as kidne y damag e or GFR less than 60 mL/mi n/1.7 3 m2 for 3 month s or longe r. Not Available [facility] [address] [place], [address], 06/29/2019 11:37:08 Result Notes None recorded. Problems Name Problem SNOMED Code Status Onset Date Resolution Date Notes Provider Name and Address Organization Details Recorded Time B-cell chronic lymphocytic leukemia Active 019 [facility] 9 16:33:03 Problem Notes None recorded. Procedures Surgical History Date Name Laterality Status Provider Name and Address Organization Details Recorded Time Total Hysterectomy completed Shayy kenney [facility] 06/29/2019 12:24:05 Tonsillectomy completed Shayy To [facility] 06/29/2019 12:24:15 Carpal tunnel surgery completed Shayy To [facility] 06/29/2019 12:24:24 Imaging Results None recorded. Procedure Notes None recorded. Medical Equipment None Reported. Allergies No known drug allergies Medications Name Sig Start Date Stop Date Status Note LastModified by Organization Details LastModified Time Pravachol 40 mg tablet Take 1 tablet every day by oral route. active Not Available Not Available No t Available Lasix 40 mg tablet Take 2 tablets every day by oral route. active Not Available Not Available No t Available Neurontin 600 mg tablet Take 1 tablet twice a day by oral route. active Not Available Not Available No t Available aspirin 81 mg tablet,bo yed release Take 1 tablet every day by oral route. active Not Available Not Available No t Available Requip 3 mg tablet Take 1 tablet every day by oral route. active Not Available Not Available No t Available Lamictal 200 mg tablet Take 1 tablet twice a day by oral route. active Not Available Not Available No t Available Humalog U-100 Insulin 100 unit/mL subcutaneou s solution Inject by subcutaneo us route. active 1-40 untis before meals Not Available Not Available Not Available Fiber-Tabs 625 mg tablet Take by oral route. active Not Available Not Available No t Available Ambien 10 mg tablet Take 1 tablet every day by oral route. active Not Available Not Available No t Available Xanax 1 mg tablet Take 1 tablet every day by oral route. active Not Available Not Available No t Available Cozaar 50 mg tablet Take 1 tablet every day by oral route. active Not Available Not Available No t Available potassium chloride active Not Available Not Available Not Available Calcium 600 1 daily active Not Available Not Available Not Available Percocet as needed active Not Available Not A vailable Not Available Vitamin D3 1 daily active Not Available Not A vailable Not Available Reclast 5 mg/100 mL intravenous piggyback Inject by intravenou s route. active Not Available Not Available No t Available Anne 10 mg capsule,ext ended release Take 1 capsule twice a day by oral route. active Not Available Not Available No t Available Pristiq 100 mg tablet,exte nded release Take 1 tablet every day by oral route. active Not Available Not Available No t Available magnesium 400 mg (as magnesium oxide) capsule Take 5 capsules every day by oral route. active Not Available Not Available No t Available Contour Next Test Strips active Not Available Not Available Not Available Trulance 3 mg tablet Take 1 tablet every day by oral route. active Not Available Not Available No t Available Vitals Date Recorded Body weight Body mass index (BMI) Body height Body temperature Heart rate Oxygen saturation Oxygen saturation in Arterial blood by Pulse oximetry Systolic blood pressure Diastolic blood pressure Provider Name and Address Organization Details Last Updated DateTime 9 30464.1 3 g 20.4 kg/m2 172.72 cm 99.8 [degF] 68 /min 99 % 99 % 120 mm[Hg] 60 mm[Hg] Shayy To [facility] 9 12:27:55 Social History Question Answer Notes LastModified by [email or web address] Details LastModified Time Tobacco Smoking Status Current Every Day Smoker Shayy To [facility] 06/29/2019 12:19:26 How Much Tobacco Do You Chew? None Information not available 06/29/2019 Live Alone Or With Others? With Others [email or web address] Information not available 06/29/2019 Education Level Associate Degree [email or web address] Information not available 06/29/2019 Would You Like Any HELP Quitting Tobacco? Yes [email or web address] Information not available 06/29/2019 Exposure To Smoke Yes [email or web address] Information not available 06/29/2019 Marital Status [email or web address] Informatio n not available 06/29/2019 What Was The Date Of Your Most Recent Tobacco Screening? 06/29/2019 [email or web address] Information not available 06/29/2019 How Many Children Do You Have? 0 Information not available 06/29/2019 How Much Tobacco Do You Smoke? 1.5 PPD [email or web address] Information not available 06/29/2019 How Many Years Have You Smoked Tobacco? 8 [email or web address] Information not available 06/29/2019 Sex: Unknown Functional Status Question Answer Note LastModified by [email or web address] Details LastModified Time What is your level of alcohol consumption? None Information not available 06/29/2019 Do you or have you ever used smokeless tobacco? Never used smokeless tobacco [email or web address] Information not available 06/29/2019 What is your occupation? disabled [email or web address] Information not available 06/29/2019 Do you or have you ever used e-cigarettes or vape? Never used electronic cigarettes Information not available 06/29/2019 Mental Status None recorded. Family History Relationship Description Onset Age of this Age Resolved Age Notes LastModified by Organization Details LastModified Time Unspecified Relation Heart disease [email or web address] Not available 2018 12:16:03 Unspecified Relation Hypertensive disorder [email or web address] Not available 2018 12:16:09 Medical History Condition Response Depression Y Arthritis Y Bleeding Disorder Y High Cholesterol Y Diabetes Y Hypertension Y Gynecological HistoryNo gynecological history recorded. Obstetrics History GPAL:G 0 P 0 0 0 0 Past Encounters Encounter ID Performer Location Encounter Start Date Encounter Closed Date Diagnosis/Indication Diagnosis SNOMED-CT Code Diagnosis ICD10 Code Diagnosis Note [id number] BEE LOMBARDO MD [facility]STR[facility] [address] [place] [address] 1 12/17/2016 13:06:09 12/17/2016 15:18:34 [id number] QM_IMPORTS [facility] IMPORTS [address] 5 01/13/2017 18:02:45 01/13/2017 18:02:45 [id number] BEE LOMBARDO MD GASTRO [facility] [address] [place] [address] 1 01/14/2017 07:55:37 01/24/2017 14:41:06 [id number] BEE LOMBARDO MD GASTRO [facility] [address] [place] [address] 1 04/22/2017 13:03:14 04/23/2017 06:50:21 [id number] MARIO STINSON MD [facility] [address] [address] [place] [address] 6 05/20/2017 14:57:36 05/20/2017 15:58:42 [id number] [place] [address] [place] [address] 1 06/04/2017 13:08:46 06/04/2017 14:32:29 [id number] [place] [address] [place] [address] 1 06/27/2017 10:37:00 06/27/2017 11:27:39 [id number] MARIO STINSON MD [facility] [address],[facility] [address] [place] [address] 6 06/27/2017 12:10:04 06/27/2017 13:10:01 [id number] JARVIS DE LA TORRE, S[facility] CONSULTANT RHEUMATOL [facility] [address] [place] [address] 1 07/23/2017 08:13:03 07/23/2017 09:50:36 [id number] VIDYA LAWSON MD NEUROLOGY [facility] [address] [place] [address] 2 08/20/2017 13:02:41 08/20/2017 16:08:39 [id number] VIDYA LAWSON MD NEUROLOGY [facility] [address] [address] 2 08/20/2017 13:18:55 08/20/2017 16:08:58 [id number] BEE LOMBARDO MD GASTRO SB [address] [place] [address] 1 08/26/2017 12:48:00 08/29/2017 09:40:03 [id number] [place] [address] [place] [address] 1 08/29/2017 15:32:14 09/01/2017 08:13:59 [id number] [place] [address] [place] [address] 1 09/26/2017 10:46:53 09/26/2017 11:28:48 [id number] MARIO STINSON MD HEM/[facility]C [facility] [address] [place] [address] 12/26/2017 12:26:16 12/26/2017 16:00:47 [id number] VIDYA LAWSON MD NEUROLOGY [facility] [address] [place] [address] 2 01/14/2018 15:43:55 01/14/2018 16:17:54 [id number] VIDYA LAWSON MD NEUROLOGY [facility] [address] [place] [address] 2 02/10/2018 14:50:25 02/10/2018 16:07:24 [id number] [place] [address] [place] [address] 1 02/24/2018 13:02:41 02/24/2018 17:00:42 [id number] MARIO STINSON MD HEM[facility] [address] [place] [address] 06/19/2018 12:32:02 06/19/2018 13:35:01 [id number] [place] [address] [place], [place] [address] 10/22/2018 13:44:07 10/23/2018 14:13:38 [id number] MARIO STINSON MD [facility] [address] [place] [address] 12/25/2018 11:14:13 12/25/2018 14:34:47 [id number] [place] [address] [place] [address] 04/21/2019 14:03:30 04/22/2019 06:36:14 [id number] MARIO STINSON MD HEM/ONC SB CLOSED [address] [place] [address] 06/29/2019 12:10:38 06/29/2019 12:44:41 B-cell chronic lymphocytic leukemia [id number] C91.10 [id number] BEE LOMBARDO MD GASTRO SB [address] [place], [place] [address] 12/15/2019 13:52:14 12/16/2019 08:12:24 [id number] BEE LOMBARDO MD GASTRO SB [address] [place], [place] [address] 01/23/2021 12:57:58 01/23/2021 13:22:45 [id number] BEE LOMBARDO MD SURGERY SCHEDULE [address] [place] [address] 1 03/01/2021 07:20:45 03/01/2021 07:21:20 [id number] BEE LOMBARDO MD GASTRO SB [address] [place] [address] 03/07/2022 12:31:47 03/12/2022 10:49:00 [id number] BEE LOMBARDO MD GASTRO [address] [address] 1 03/27/2023 12:29:29 03/27/2023 13:25:44 [id number] LORRAINE RIGGS MD [address] [address] 8 03/16/2024 11:30:15 03/16/2024 13:32:09 [id number] BEE LOMBARDO MD GASTRO [address] [address] 1 03/25/2024 12:39:04 03/25/2024 13:17:54 [id number] LORRAINE RIGGS MD [address] [address] 8 03/25/2024 15:54:46 03/25/2024 16:20:51 [id number] LORRAINE RIGGS MD [address] [address] 8 03/17/2025 11:28:04 03/17/2025 11:59:52 [id number] BEE LOMBARDO MD GASTRO [facility] [address] [address] 1 03/23/2025 12:52:26 03/23/2025 13:25:12 Health Concerns Section Related Observation LastModified by Organization Detai ls LastModified Time None Recorded Concern Status LastModified by Organization Details LastModified Time None Recorded Advance Directives Directive None Recorded Payers Insurance Date Sequence Insurance Name Policy Number Policy Peña Covered Member ID Peña Member ID Guarantor Name 03/16/2024 3 [facility] Amanda Peraza [id number] Amanda Peraza 03/16/2024 2 [place] Amanda Peraza [id number] Amanda Peraza 09/06/2020 1 [id number] [place] Peraza [id number] Amanda Peraza 03/16/2024 2 [place] Amanda Peraza [id number] Amanda Peraza 03/14/2025 1 [place] Amanad Peraza [id number] Amanda Peraza 03/26/2025 2 [facility] [id number] [place] Peraza [id number] Amanda Peraza Notes Date Note Type Note Provider Name and Address Organization Details Recorded Time 9 text/html HPIReported bypatient.Advanced Directives / [employer] AuthorizationsAdvanced Directives? YES Dischargedischarge mode ambulatory; discharge disposition stable Distress ScreeningHas the distress screening been completed in the last 45 days? NO; Distress level 4 Practical Problemsno practical problems Family Problemsno family problems Emotional Problemsno emotional problems Spiritual/Religiousspiritua l/mandaen problems? NO Physical Problemsno physical problems Nutrition ScreeningNutrition Screening NO; special diet restrictions? describe: (diabetic); Nutrition counseling last 6 months? NO Ms. Peraza is in for follow up of early stage CLL. She was diagnosed in May 2017 with white count very slightly elevated at 10.9 with a lymphocytosis of 57%. There has been no anemia or thrombocytopenia. Flow cytometry was consistent with CLL that was CD38 negative. CAT scan of the chest/abdomen/pelvis shows no lymphadenopathy or splenomegaly at diagnosis. CLL fish studies revealed 13q14 deletion and beta-2 microglobulin was only slightly elevated at 2.69. Quantitative immunoglobulin showed slightly low IgG at 659 but normal IgA and IgM. She is in today for 6 month follow up. There has been no evidence of lymphadenopathy and no infectious complications since I saw her last. There have been no new significant medical issues. MARIO STINSON MD [address] [place] [address], [id number], [facility] 06/29/2019 12:41:56 OBGyn Episode No OBEpisode recorded.
--- OUTSIDE RECORDS SUMMARY | 2025-04-05 11:12 | XMS_ITS | Encounter Summary ---
Author Organization [facility] Address [address] [place] [address] Care Team Providers Care Brake Lining Driller Name Role Phone Dorian Guerra MD Primary Care Provider +1- [phone] Reason for Visit * Reason Comments Med Refill Encounter Details Date Type Department Care Team (Late st Contact Info) Description 03/20/2021 Refill [facility] Endocrinology [address] [place] [address] Harsh Moeller, DO [address] [address] Social History Tobacco Use Types Packs/Day Years Used Date Smoking Tobacco: Light Smoker Alcohol Use Standard Drinks/Week Comments Yes 0 (1 standard drink = 0.6 oz pur e alcohol) Comments Unknown Sex and Gender Information Value Date Recorded Sex Assigned at Not on file Legal Sex Female 7:29 PM EDT Gender Identity Not on file Sexual Orientation Not on file documented as of this encounter Miscellaneous Notes * Telephone Encounter - Brooklyn Masters PharmD - 03/22/2021 8:39 AM EDT rx for supplies already addressed by clinic documented in this encounter Plan of Treatment Upcoming Encounters Date Type Department Care Team (Late st Contact Info) Description 06/01/2025 11:00 AM EDT Office Visit [facility] Endocrinology [address] [place] [address] Traci Nathan, DO [address] [facility] [address] [place] [address] 08/10/2025 12:40 PM EDT Office Visit [facility] End[facility] [address] [place] [address] Traci Nathan, DO [address] [address] documented as of this encounter Visit Diagnoses Not on filedocumented in this encounter Care Teams Brake Lining Driller Relationship Specialty Start Date End Date Dorian Guerra MD [address] [place] [address] PCP - General 02/23/21 documented as of this encounter
--- OUTSIDE RECORDS SUMMARY | 2025-04-05 11:12 | XMS_ITS | Encounter Summary ---
Author Organization [facility] Address [address] [place] [address] Care Team Providers Care Project Admin Name Role Phone Dorian Guerra MD Primary Care Provider +1- [phone] Encounter Details Date Type Department Care Team (Latest Contact Info) Description 03/02/2025 Travel Social History Tobacco Use Types Packs/Day Years [...] EDT MorningBrennen documented as of this encounter Plan of Treatment Upcoming Encounters Date Type Department Care Team (Late st Contact Info) Description 06/01/2025 11:00 AM EDT Office Visit [facility] Endocrinology [address] [place] [id number] Traci Nathan, DO [address] [address] 08/10/2025 12:40 PM EDT Office Visit [facility] Endocrinology [address] [place] [address] Traci Nathan, DO [address] [address] documented as of this encounter Visit Diagnoses Not on filedocumented in this encounter Additional Health Concerns Assessment Noted Time A fall risk assessment has been complete d for the patient 02/19/2023 10:03 AM EDT A Body Mass Index follow-up plan has been documented for the patient 03/02/2025 2:57 PM EDT documented as of this encounter Care Teams Project Admin Relationship Specialty Start Date End Date Dorian Guerra MD [address] [place] [address] PCP - General 02/23/21 documented as of this encounter
--- OUTSIDE RECORDS SUMMARY | 2025-04-05 11:13 | XMS_ITS | Encounter Summary ---
Author Organization [facility] Address [address] [place] [address] Care Team Providers Care Fabric Finisher Name Role Phone Dorian Guerra MD Primary Care Provider +1- [phone] Encounter Details Date Type Department Care Team (Late st Contact Info) Description 03/23/2025 Orders Only [facility] [address] [place] [address] Rubio Montana MD [address] [place] [address] Social History Tobacco Use Types Packs/Day Years [...] 11:00 AM EDT Office Visit [facility] Endocrinology [address] [place] [address] Traci Nathan DO [address] [address] 08/10/2025 12:40 PM EDT [facility] [address] [place] [address] Traci Nathan, DO [address] [place] [address] documented as of this encounter Procedures Procedure Name Priority Date/Time Associated Diagnosis Comments VITAMIN B12, SERUM Routine 03/23/2025 2: 27 PM EDT documented in this encounter Results * (ABNORMAL) Vitamin B12, Serum (03/23/2025 2:27 PM EDT) External Vitamin B12 1,700(H) 232 - 1,245 pg/mL 03/23/2025 3:50 PM EDT [facility] 03/23/2025 2:27 PM EDT 03/23/2025 2:46 PM EDT us Rubio Montana MD LAB BLOOD ORDERABLES Final R esult [facility] [address] [place] [address], documented in this encounter Visit Diagnoses Not on filedocumented in this encounter Additional Health Concerns Assessment Noted Time A fall risk assessment has been complete d for the patient 02/19/2023 10:03 AM EDT A Body Mass Index follow-up plan has been documented for the patient 03/02/2025 2:57 PM EDT documented as of this encounter Care Teams Fabric Finisher Relationship Specialty Start Date End Date Dorian Guerra MD [address] [place] [id number] PCP - General 02/23/21 documented as of this encounter
--- OUTSIDE RECORDS SUMMARY | 2025-04-05 11:13 | XMS_ITS | Data Portability ---
Author Organization [facility], [facility] CLOSED Address [address] [place] [address] Care Team Providers Care Completion Engineer Name Role Phone MARIO STINSON Hematology/Oncology TOD CERNA Primary Care Provider LORRAINE RIGGS Forensic Computer Examiner Assessment Encounter Date Assessment Date Assessment LastModified by Organization Details LastModified Time 03/25/2024 03/25/2024 Check labs mashmun Not available 13:04:41 03/23/2025 03/23/2025 Check labs u/s abd egd [...] Not available Not available Not available Lab surgica l patholo gy study 2023 024 [facility], [address] [place] [address], [phone], 03/17/2024 12:55:50 Referral None recorde d. Procedures None recorde d. Surgeries None recorde d. Imaging None recorde d. Medication Orders Relisto r 150 mg tablet 2024 025 [place] [employer] [facility] #[id number], [address], [phone], 03/23/2025 13:16:37 Relisto r 150 mg tablet 2023 025 [id number], [address], [id number], 03/23/2025 13:14:52 Patient TargetsNo targets recorded. Patient InstructionsNo instructions recorded. Reason for Referral None Reported. Results Created Date Observation Date Name Description Value Unit Range Abnormal Flag Note LastModifiedBy Organization Detail LastModifiedTime 03/25/2003/25/2024 IVANA C PANEL IgA 187 mg/dL 70-400 normal Not Available [facility] [address] [place] [address], [phone], 03/28/2024 12:30:34 03/25/20 24 03/27/2024 IVANA C PANEL endomysial Ab, IgA NEGATI VE negati ve normal Not Available [facility] [address] [place] [address], [phone], 03/28/2024 12:30:34 03/25/20 24 03/28/2024 IVANA C PANEL gliadin Ab IgA 50.5 U/mL high Value Inter preta tion ----- ----- ----- ---- <15.0 Antib zachariah not detec victoria > or = 15.0 Antib zachariah detec victoria Not Available [facility] [address] [place] [address], [phone], 03/28/2024 12:30:34 03/25/20 24 03/28/2024 IVANA C PANEL gliadin Ab IgG 1.7 U/mL normal Value Inter preta tion ----- ----- ----- ---- <15.0 Antib zachariah not detec victoria > or = 15.0 Antib zachariah detec victoria Not Available [facility] [address] [place] [address], [phone], 03/28/2024 12:30:34 03/25/20 24 03/28/2024 IVANA C PANEL ttg, IgA 9.0 U/mL normal Value Inter preta tion ----- ----- ----- ---- <15.0 Antib zachariah not detec victoria > or = 15.0 Antib zachariah detec victoria Not Available [facility] [address] [place] [address], [phone], 03/28/2024 12:30:34 03/25/20 24 03/25/2024 COMP. METAB OLIC PANEL glucose 105 mg/dL 74-100 high Not Available [address], [phone], 03/25/2024 14:55:05 03/25/20 24 03/25/2024 COMP. METAB OLIC PANEL blood urea nitrogen 18 mg/dL 6-20 normal Not Available [facility] [address] [place] [address], [phone], 03/25/2024 14:55:05 03/25/20 24 03/25/2024 COMP. METAB OLIC PANEL creatinine 1.12 mg/dL 0.50-0 .95 high Not Available [facility] [address] [place] [address], [phone], 03/25/2024 14:55:05 03/25/20 24 03/25/2024 COMP. METAB OLIC PANEL BUN/creatini ne ratio 16 (calc ) 10-20 normal Not Available [address], [phone], 03/25/2024 14:55:05 03/25/20 24 03/25/2024 COMP. METAB OLIC PANEL sodium 141 mmol/ L 136-14 5 normal Not Available [facility] [address], [place], [phone], 03/25/2024 14:55:05 03/25/20 24 03/25/2024 COMP. METAB OLIC PANEL potassium 3.8 mmol/ L 3.4-5. 0 normal Not Available [facility] [address] [place] [address], [phone], 03/25/2024 14:55:05 03/25/20 24 03/25/2024 COMP. METAB OLIC PANEL chloride 100 mmol/ L 98-107 normal Not Available [facility] [address] [place] [address], [phone], 03/25/2024 14:55:05 03/25/20 24 03/25/2024 COMP. METAB OLIC PANEL carbon dioxide 30 mmol/ L 22-31 normal Not Available [facility] [address] [place] [address], [phone], 03/25/2024 14:55:05 03/25/20 24 03/25/2024 COMP. METAB OLIC PANEL anion gap 11 (calc ) 7-25 normal Not Available [facility] [address] [place] [address], [address], 03/25/2024 14:55:05 03/25/20 24 03/25/2024 COMP. METAB OLIC PANEL calcium 9.8 mg/dL 8.6-10 .2 normal Not Available [facility] [address] [place] [address], [phone], 03/25/2024 14:55:05 03/25/20 24 03/25/2024 COMP. METAB OLIC PANEL total protein 7.2 g/dL 6.4-8. 3 normal Not Available [facility] [address] [place] [address], [phone], 03/25/2024 14:55:05 03/25/20 24 03/25/2024 COMP. METAB OLIC PANEL albumin 4.4 g/dL 3.5-5. 2 normal Not Available [facility] [address] [place] [address], [phone], 03/25/2024 14:55:05 03/25/20 24 03/25/2024 COMP. METAB OLIC PANEL globulin 2.8 1.5-4. 5 normal Not Available [facility] [address] [place] [address], [phone], 03/25/2024 14:55:05 03/25/20 24 03/25/2024 COMP. METAB OLIC PANEL albumin/glob ulin ratio 1.6 (calc ) 1.1-2. 5 normal Not Available [facility] [address] [place] [address], [phone], 03/25/2024 14:55:05 03/25/20 24 03/25/2024 COMP. METAB OLIC PANEL bilirubin, total 0.2 mg/dL 0.1-1. 2 normal Not Available [facility] [address] [place] [address], [phone], 03/25/2024 14:55:05 03/25/20 24 03/25/2024 COMP. METAB OLIC PANEL alkaline phosphatase 128 U/L 30-121 high Not Available [facility] [address] [place] [address], [phone], 03/25/2024 14:55:05 03/25/20 24 03/25/2024 COMP. METAB OLIC PANEL AST 28 U/L 0-32 normal Not Available [facility] [address] [place] [address], [phone], 03/25/2024 14:55:05 03/25/20 24 03/25/2024 COMP. METAB OLIC PANEL ALT 30 U/L 0-33 normal Not Available [facility] [address] [place] [address], [address], 03/25/2024 14:55:05 03/25/20 24 03/25/2024 COMP. METAB OLIC PANEL GFR 55 >= 60 abnormal NOT E New calcu latio n for GFR (CKD- EPI 2020) is formu lated witho jaylyn race adjus tment facto rs at the recom menda tion of the Kathi Verde y Mell atdomenica and Mikey Hankins ty of Nephr ology . This calcu latio n has not been valid ated in pregn ant women . For pedia tric patie nts refer to https ://john w.bridgett huber.o rg/pr skyeess carl s/KDO QI/gf r_cal culat orPed Not Available [facility] [address] [place] [address], [phone], 03/25/2024 14:55:05 03/25/20 24 03/25/2024 NELSON TIN ferritin 82 NG/mL 13-157 normal Not Available [facility] [address] [place] [address], [phone], 03/25/2024 14:55:07 03/25/20 24 03/25/2024 C REACT KARMEN PROTE IN C reactive protein 0.12 mg/dL 0.00-0 .49 normal Not Available [facility] [address] [place] [address], [phone], 03/25/2024 14:55:09 03/25/20 24 03/25/2024 COMPL ETE BLOOD COUNT white blood cells 8.5 10*3/ uL 3.8-10 .8 normal Not Available [facility] [address] [place] [address], [phone], 03/25/2024 15:21:00 03/25/20 24 03/25/2024 COMPL ETE BLOOD COUNT red blood cells 4.24 10*6/ uL 3.80-5 .20 normal Not Available [facility] [address] [place] [address], [address], 03/25/2024 15:21:00 03/25/20 24 03/25/2024 COMPL ETE BLOOD COUNT hemoglobin 14.5 g/dL 12.0-1 6.0 normal Not Available [facility] [address] [place] [address], [address], 03/25/2024 15:21:00 03/25/20 24 03/25/2024 COMPL ETE BLOOD COUNT hematocrit 41.5 % 35.0-4 7.0 normal Not Available [facility] [address] [place] [address], [address], 03/25/2024 15:21:00 03/25/20 24 03/25/2024 COMPL ETE BLOOD COUNT MCV 98 fL 80-100 normal Not Available [facility] [address] [place] [address], [address], 03/25/2024 15:21:00 03/25/20 24 03/25/2024 COMPL ETE BLOOD COUNT MCH 34 pg 26-35 normal Not Available [facility] [address] [place] [address], [address], 03/25/2024 15:21:00 03/25/20 24 03/25/2024 COMPL ETE BLOOD COUNT MCHC 35 g/dL 32-36 normal Not Available [facility] [address] [place] [address], [address], 03/25/2024 15:21:00 03/25/20 24 03/25/2024 COMPL ETE BLOOD COUNT RDW 13.4 % 11.0-1 5.0 normal Not Available [facility] [address] [place] [address], [address], 03/25/2024 15:21:00 03/25/20 24 03/25/2024 COMPL ETE BLOOD COUNT MPV 7.6 fL 6.2-10 .5 normal Not Available [facility] [address] [place] [address], [address], 03/25/2024 15:21:00 03/25/20 24 03/25/2024 COMPL ETE BLOOD COUNT platelet count 196 10*3/ uL 150-40 0 normal Not Available [facility] [address] [place] [address], [phone], 03/25/2024 15:21:00 03/25/20 24 03/25/2024 COMPL ETE BLOOD COUNT neutrophil,a bsolute 4.3 10*3/ uL 1.6-8. 4 normal Not Available [facility] [address] [place] [address], [address], 03/25/2024 15:21:00 03/25/20 24 03/25/2024 COMPL ETE BLOOD COUNT lymphocyte,a bsolute 3.9 10*3/ uL 0.4-5. 1 normal Not Available [facility] [address] [place] [address], [address], 03/25/2024 15:21:00 03/25/20 24 03/25/2024 COMPL ETE BLOOD COUNT monocyte,abs olute 0.0 10*3/ uL 0.0-1. 2 normal Not Available [facility] [address] [place] [address], [address], 03/25/2024 15:21:00 03/25/20 24 03/25/2024 COMPL ETE BLOOD COUNT eosinophil,a bsolute 0.2 10*3/ uL 0.0-0. 8 normal Not Available [facility] [address] [place] [address], [address], 03/25/2024 15:21:00 03/25/20 24 03/25/2024 COMPL ETE BLOOD COUNT basophil,abs olute 0.1 10*3/ uL 0.0-0. 3 normal Not Available [facility] [address] [place] [address], [address], 03/25/2024 15:21:00 03/25/20 24 03/25/2024 COMPL ETE BLOOD COUNT % neutrophils 49.0 % 42.0-7 8.0 normal Not Available [facility] [address] [place] [address], [phone], 03/25/2024 15:21:00 03/25/20 24 03/25/2024 COMPL ETE BLOOD COUNT % lymphocytes 43.0 % 11.0-4 7.0 normal Not Available [facility] [address] [place] [address], [address], 03/25/2024 15:21:00 03/25/20 24 03/25/2024 COMPL ETE BLOOD COUNT % monocytes 0.0 % 0.0-11 .0 normal Not Available [facility] [address] [place] [address], [address], 03/25/2024 15:21:00 03/25/20 24 03/25/2024 COMPL ETE BLOOD COUNT % eosinophils 2.0 % 0.0-7. 0 normal Not Available [facility] [address] [place] [address], [address], 03/25/2024 15:21:00 03/25/20 24 03/25/2024 COMPL ETE BLOOD COUNT % basophils 1.0 % 0.0-3. 0 normal Not Available [facility] [address] [place] [address], [address], 03/25/2024 15:21:00 03/25/20 24 03/25/2024 COMPL ETE BLOOD COUNT nucleated red cells 0.3 % 0.0-0. 9 normal Not Available [facility] [address] [place] [address], [address], 03/25/2024 15:21:00 03/25/20 24 03/25/2024 COMPL ETE BLOOD COUNT nucleated RBCs, absolute 0.02 10*3/ uL not estab. normal Not Available [facility] [address] [place] [address], [address], 03/25/2024 15:21:00 03/25/20 24 03/25/2024 MANUA L DIFFE RENTI AL % band neutrophils 2.0 % 0.0-7. 0 normal Not Available [facility] [address] [place] [address], [address], 03/25/2024 15:21:03 03/25/20 24 03/25/2024 MANUA L DIFFE RENTI AL % atypical lymphocytes 3 % 0-1 high Not Available [facility] [address] [place] [address], [address], 03/25/2024 15:21:03 03/25/20 24 03/25/2024 MANUA L DIFFE RENTI AL % metamyelocyt es 0 % 0-1 normal Not Available [facility] [address] [place] [address], [address], 03/25/2024 15:21:03 03/25/20 24 03/25/2024 MANUA L DIFFE RENTI AL % myelocytes 0 % 0-1 normal Not Available [facility] [address] [place] [address], [phone], 03/25/2024 15:21:03 03/25/20 24 03/25/2024 MANUA L DIFFE RENTI AL % promyelocyte s 0 % 0 normal Not Available [facility] [address] [place] [address], [address], 03/25/2024 15:21:03 03/25/20 24 03/25/2024 MANUA L DIFFE RENTI AL % blast 0 % 0 normal Not Available [facility] [address] [place] [address], [address], 03/25/2024 15:21:03 03/25/20 24 03/25/2024 MANUA L DIFFE RENTI AL nucleated red cells 0 /100{ WBC} 0-1 normal Not Available [facility] [address] [place] [address], [address], 03/25/2024 15:21:03 03/25/20 24 03/25/2024 MANUA L DIFFE RENTI AL smudge cells 0 /100{ WBC} 0 normal Not Available [facility] [address] [place] [address], [address], 03/25/2024 15:21:03 03/25/20 24 03/25/2024 MANUA L DIFFE RENTI AL platelet morphology NORMAL normal Not Available [facility] [address] [place] [address], [address], 03/25/2024 15:21:03 03/25/20 24 03/25/2024 MANUA L DIFFE RENTI AL macrocytosis SLIGHT abnormal Not Available [facility] [address] [place] [address], [address], 03/25/2024 15:21:03 03/23/20 25 03/23/2025 COMP. METAB OLIC PANEL glucose 90 mg/dL 74-100 normal Not Available [facility] [address] [place] [address], [address], 03/23/2025 15:43:13 03/23/20 25 03/23/2025 COMP. METAB OLIC PANEL blood urea nitrogen 11 mg/dL 6-20 normal Not Available [facility] [address] [place] [address], [address], 03/23/2025 15:43:13 03/23/20 25 03/23/2025 COMP. METAB OLIC PANEL creatinine 1.03 mg/dL 0.50-0 .95 high Not Available [facility] [address] [place] [address], [address], 03/23/2025 15:43:13 03/23/20 25 03/23/2025 COMP. METAB OLIC PANEL BUN/creatini ne ratio 11 (calc ) 10-20 normal Not Available [facility] [address] [place] [address], [address], 03/23/2025 15:43:13 03/23/20 25 03/23/2025 COMP. METAB OLIC PANEL sodium 142 mmol/ L 136-14 5 normal Not Available [facility] [address] [place] [address], [address], 03/23/2025 15:43:13 03/23/20 25 03/23/2025 COMP. METAB OLIC PANEL potassium 3.7 mmol/ L 3.4-5. 0 normal Not Available [facility] [address] [place] [address], [address], 03/23/2025 15:43:13 03/23/20 25 03/23/2025 COMP. METAB OLIC PANEL chloride 102 mmol/ L 98-107 normal Not Available [facility] [address] [place] [address], [address], 03/23/2025 15:43:13 03/23/20 25 03/23/2025 COMP. METAB OLIC PANEL carbon dioxide 26 mmol/ L 22-31 normal Not Available [facility] [address] [place] [address], [address], 03/23/2025 15:43:13 03/23/20 25 03/23/2025 COMP. METAB OLIC PANEL anion gap 14 (calc ) 7-25 normal Not Available [facility] [address] [place] [address], [phone], 03/23/2025 15:43:13 03/23/20 25 03/23/2025 COMP. METAB OLIC PANEL calcium 10.1 mg/dL 8.6-10 .2 normal Not Available [facility] [address] [place] [address], [address], 03/23/2025 15:43:13 03/23/20 25 03/23/2025 COMP. METAB OLIC PANEL total protein 7.0 g/dL 6.4-8. 3 normal Not Available [facility] [address] [place] [address], [address], 03/23/2025 15:43:13 03/23/20 25 03/23/2025 COMP. METAB OLIC PANEL albumin 4.7 g/dL 3.5-5. 2 normal Not Available [facility] [address] [place] [address], [address], 03/23/2025 15:43:13 03/23/20 25 03/23/2025 COMP. METAB OLIC PANEL globulin 2.3 1.5-4. 5 normal Not Available [facility] [address] [place] [address], [address], 03/23/2025 15:43:13 03/23/20 25 03/23/2025 COMP. METAB OLIC PANEL albumin/glob ulin ratio 2.0 (calc ) 1.1-2. 5 normal Not Available [facility] [address] [place] [address], [address], 03/23/2025 15:43:13 03/23/20 25 03/23/2025 COMP. METAB OLIC PANEL bilirubin, total 0.2 mg/dL 0.1-1. 2 normal Not Available [facility] [address] [place] [address], [address], 03/23/2025 15:43:13 03/23/20 25 03/23/2025 COMP. METAB OLIC PANEL alkaline phosphatase 120 U/L 30-121 normal Not Available [facility] [address] [place] [address], [address], 03/23/2025 15:43:13 03/23/20 25 03/23/2025 COMP. METAB OLIC PANEL AST 20 U/L 0-32 normal Not Available [facility] [address] [place] [address], [address], 03/23/2025 15:43:13 03/23/20 25 03/23/2025 COMP. METAB OLIC PANEL ALT 17 U/L 0-33 normal Not Available [facility] [address] [place] [address], [address], 03/23/2025 15:43:13 03/23/20 25 03/23/2025 COMP. METAB OLIC PANEL eGFR 60 >= 60 normal NOT E New calcu latio n for GFR (CKD- EPI 2020) is formu lated witho ut race adjus tment facto rs at the recom menda tion of the Natio zack Kid[employer] y [employer] ation and Mikey key Socie ty of Nephr ology . This calcu latio n has not been valid ated in pregn ant women . For pedia tric patie nts refer to https ://john w.bridgett mayo.o rg/pr ofess ional s/KDO QI/gf r_cal culat orPed Not Available [facility] [address] [place] [address], [address], 03/23/2025 15:43:13 03/23/20 25 03/23/2025 C REACT KARMEN PROTE IN C reactive protein 0.14 mg/dL 0.00-0 .49 normal Not Available [facility] [address] [place] [address], [address], 03/23/2025 15:43:15 03/23/20 25 03/23/2025 LIPAS E lipase 13 U/L 13-60 normal Not Available [facility] [address] [place] [address], [address], 03/23/2025 15:43:16 03/23/20 25 03/23/2025 IVANA C PANEL IgA 179 mg/dL 70-400 normal Not Available [facility] [address] [place] [address], [address], 03/25/2025 06:15:48 03/23/20 25 03/25/2025 IVANA C PANEL gliadin Ab IgA 47.6 U/mL high Value Inter preta tion ----- ----- ----- ---- <15.0 Antib zachariah not detec victoria > or = 15.0 Antib zachariah detec victoria Not Available [facility] [address] [place] [address], [address], 03/25/2025 06:15:48 03/23/20 25 03/25/2025 IVANA C PANEL gliadin Ab IgG 1.7 U/mL normal Value Inter preta tion ----- ----- ----- ---- <15.0 Antib zachariah not detec victoria > or = 15.0 Antib zachariah detec victoria Not Available [facility] [address] [place] [address], [address], 03/25/2025 06:15:48 03/23/20 25 03/25/2025 IVANA C PANEL ttg, IgA 11.0 U/mL normal Value Inter preta tion ----- ----- ----- ---- <15.0 Antib zachariah not detec victoria > or = 15.0 Antib zachariah detec victoria Not Available [facility] [address] [place] [address], [address], 03/25/2025 06:15:48 03/23/20 25 03/25/2025 IVANA C PANEL endomysial Ab, IgA NEGATI VE negati ve normal Not Available [facility] [address] [place] [address], [address], 03/25/2025 06:15:48 03/23/20 25 03/23/2025 VITAM IN B12 vitamin B12 1700 pg/mL 232-12 45 high Not Available [facility] [address] [place] [address], [address], 03/23/2025 15:50:24 03/23/20 25 03/23/2025 COMPL ETE BLOOD COUNT white blood cells 9.3 10*3/ uL 3.8-10 .8 normal Not Available [facility] [address] [place] [address], [address], 03/23/2025 21:26:42 03/23/20 25 03/23/2025 COMPL ETE BLOOD COUNT red blood cells 4.30 10*6/ uL 3.80-5 .20 normal Not Available [facility] [address] [place] [address], [address], 03/23/2025 21:26:42 03/23/20 25 03/23/2025 COMPL ETE BLOOD COUNT hemoglobin 14.2 g/dL 12.0-1 6.0 normal Not Available [facility] [address] [place] [address], [address], 03/23/2025 21:26:42 03/23/20 25 03/23/2025 COMPL ETE BLOOD COUNT hematocrit 42.7 % 35.0-4 7.0 normal Not Available [facility] [address] [place] [address], [address], 03/23/2025 21:26:42 03/23/20 25 03/23/2025 COMPL ETE BLOOD COUNT MCV 99 fL 80-100 normal Not Available [facility] [address] [place] [address], [address], 03/23/2025 21:26:42 03/23/20 25 03/23/2025 COMPL ETE BLOOD COUNT MCH 33 pg 26-35 normal Not Available [facility] [address] [place] [address], [address], 03/23/2025 21:26:42 03/23/20 25 03/23/2025 COMPL ETE BLOOD COUNT MCHC 33 g/dL 32-36 normal Not Available [facility] [address] [place] [address], [address], 03/23/2025 21:26:42 03/23/20 25 03/23/2025 COMPL ETE BLOOD COUNT RDW 13.5 % 11.0-1 5.0 normal Not Available [facility] [address] [place] [address], [phone], 03/23/2025 21:26:42 03/23/20 25 03/23/2025 COMPL ETE BLOOD COUNT MPV 8.0 fL 6.2-10 .5 normal Not Available [facility] [address] [place] [address], [address], 03/23/2025 21:26:42 03/23/20 25 03/23/2025 COMPL ETE BLOOD COUNT platelet count 200 10*3/ uL 150-40 0 normal Not Available [facility] [address] [place] [address], [address], 03/23/2025 21:26:42 03/23/20 25 03/23/2025 COMPL ETE BLOOD COUNT neutrophil,a bsolute 4.0 10*3/ uL 1.6-8. 4 normal Not Available [facility] [address] [place] [address], [phone], 03/23/2025 21:26:42 03/23/20 25 03/23/2025 COMPL ETE BLOOD COUNT lymphocyte,a bsolute 4.7 10*3/ uL 0.4-5. 1 normal Not Available [facility] [address] [place] [address], [address], 03/23/2025 21:26:42 03/23/20 25 03/23/2025 COMPL ETE BLOOD COUNT monocyte,abs olute 0.5 10*3/ uL 0.0-1. 2 normal Not Available [facility] [address] [place] [address], [phone], 03/23/2025 21:26:42 03/23/20 25 03/23/2025 COMPL ETE BLOOD COUNT eosinophil,a bsolute 0.2 10*3/ uL 0.0-0. 8 normal Not Available [facility] [address] [place] [address], [phone], 03/23/2025 21:26:42 03/23/20 25 03/23/2025 COMPL ETE BLOOD COUNT basophil,abs olute 0.0 10*3/ uL 0.0-0. 3 normal Not Available [facility] [address] [place] [address], [phone], 03/23/2025 21:26:42 03/23/20 25 03/23/2025 COMPL ETE BLOOD COUNT % neutrophils 43.0 % 42.0-7 8.0 normal Not Available [facility] [address] [place] [address], [phone], 03/23/2025 21:26:42 03/23/20 25 03/23/2025 COMPL ETE BLOOD COUNT % lymphocytes 50.0 % 11.0-4 7.0 high Not Available [facility] [address] [place] [address], [phone], 03/23/2025 21:26:42 03/23/20 25 03/23/2025 COMPL ETE BLOOD COUNT % monocytes 5.0 % 0.0-11 .0 normal Not Available [facility] [address] [place] [address], [phone], 03/23/2025 21:26:42 03/23/20 25 03/23/2025 COMPL ETE BLOOD COUNT % eosinophils 2.0 % 0.0-7. 0 normal Not Available [facility] [address] [place] [address], [phone], 03/23/2025 21:26:42 03/23/20 25 03/23/2025 COMPL ETE BLOOD COUNT % basophils 0.0 % 0.0-3. 0 normal Not Available [facility] [address] [place] [address], [phone], 03/23/2025 21:26:42 03/23/20 25 03/23/2025 COMPL ETE BLOOD COUNT nucleated red cells 0.3 % 0.0-0. 9 normal Not Available [facility] [address] [place] [address], [phone], 03/23/2025 21:26:42 03/23/20 25 03/23/2025 COMPL ETE BLOOD COUNT nucleated RBCs, absolute 0.02 10*3/ uL not estab. normal Not Available [facility] [address] [place], [phone], 03/23/2025 21:26:42 Result Notes None recorded. Problems Name Problem SNOMED Code Status Onset Date Resolution Date Notes Provider Name and Address Organization Details Recorded Time Irritable bowel syndrome with diarrhea 083212663 Active 2015 From Automated Load;Provi arpita: Bee Montana;St atus: Active Not Available [facility] 7 06:01:19 Headache 22967061 Active 2015 From Automated Load;Provi arpita: Vidya Chappell;Stat us: Active Not Available [facility] 7 08:05:17 Restless legs 02051736 Active 2015 From Automated Load;Provi arpita: Vidya Chappell;Stat us: Active Not Available [facility] 7 08:20:24 B-cell chronic lymphocyt ic leukemia Active 2017 MARIO STINSON MD [address] [place], [address] , [facility] 8 15:28:43 Constipat ion 74375141 Active 2015 From Automated Load;Provi arpita: Bee Montana;St atus: Active Not Available [facility] 6 03:08:26 Abdominal bloating 423636545 Active 2015 From Automated Load;Provi arpita: Bee Montana;St atus: Active Not Available [facility] 6 03:08:26 Diarrhea 57455703 Active 2015 From Automated Load;Provi arpita: Bee Montana;St atus: Active Not Available [facility] 6 03:08:26 Upper abdominal pain 66557604 Active 2015 From Automated Load;Provi arpita: Bee Montana;St atus: Active Not Available [facility] 6 03:08:26 Migraine without aura 30793055 Active 2015 From Automated Load;Provi arpita: Vidya Chappell;Stat us: Active Not Available [facility] 6 03:08:26 Celiac disease 198635378 Active 2015 From Automated Load;Provi arpita: Bee Montana;St atus: Active Not Available [facility] 6 03:08:26 Irritable bowel syndrome 76118775 Active 2015 From Automated Load;Provi arpita: Bee Montana;St atus: Active Not Available [facility] 6 03:08:26 Lower abdominal pain 76207447 Active 2015 From Automated Load;Provi arpita: Bee Montana;St atus: Active Not Available [facility] 6 03:08:26 Problem Notes None recorded. Procedures Surgical History Date Name Laterality Status Provider Name and Address Organization Details Recorded Time 025 Destruction Premalignant Lesion(s) completed Susan Louise [facility] 03/17/2025 11:47:30 024 DAK - ED&C; trunk,arm,leg completed [facility] Kelly [facility] 03/25/2024 16:03:52 024 Destruction BN Lesions completed [facility] 03/25/2024 16:06:44 024 Biopsy Skin Lesion; Tangential completed Minda Brendan [facility] 03/16/2024 11:54:04 017 Reclast Infusion completed Shwetha Lindo [facility] 08/29/2017 16:17:02 017 Electromyography (EMG) with Nerve Conduction Study (NCV) completed Flor Harvey [facility] 08/21/2017 09:01:34 Hysterectomy completed Adam Yanes [facility] 01/14/2018 16:02:38 Other completed Juany Huang [facility] 05/20/2017 15:12:35 Tonsillectomy completed Adam Yanes [facility] 01/14/2018 16:08:29 Carpal tunnel surgery completed Adam Yanes [facility] 01/14/2018 15:56:59 Knee Surgery completed Adam Yanes [facility] 01/14/2018 16:03:09 Imaging Results None recorded. Procedure Notes None recorded. Medical Equipment None Reported. Allergies No known drug allergies Medications Name Sig Start Date Stop Date Status Note LastModified by Organization Details LastModified Time Prescript ion - Prior Authoriza tisophia Request 12/26 completed Not Available Not Available [...] every day by oral route. 03/27 completed taking 3 daily changed to tablets per [...] Available Not Available Not Available Fluzone Quad (P F) 60 mcg(15 mcgx4)/0. 5 mL intramusc [...] Updated DateTime 5 172.72 cm 22.4 kg/m2 72295.4 8 g 80 /min 95 % 95 % 16 /min 120 mm[Hg] 74 mm[Hg] [facility] 5 12:58:08 Date Recorded Body height Respiratory rate Body mass index (BMI) Body weight Heart rate Systolic blood pressure Diastolic blood pressure Provider Name and Address Organization Details Last Updated DateTime 4 172.72 cm 16 /min 22.2 kg/m2 11851.8 9 g 72 /min 146 mm[Hg] 90 mm[Hg] [facility] 4 12:49:31 Social History Question Answer Notes LastModified by Organizat ion Details LastModified Time Tobacco Smoking Status Current Every Day [facility]2017 14:59:19 What Was The Date Of Your Most Recent Tobacco Screening? 12/25/2018 Information not available 11/30/2019 Has Tobacco Cessation Counseling Been Provided? Yes Information not available 08/20/2017 On What Date [...] Unspecified Relation Family history of malignant neoplasm [email or web address] Not available 12/17 13:27:52 Unspecified Relation Myocardial infarction [email or web address] Not available 04/2017 13:28:00 Unspecified Relation Heart disease [email or web address] Not available 12/17 13:28:08 Unspecified Relation Hypertensive disorder Not available 12/17 13:28:15 Unspecified Relation Family history of stroke [email or web address] Not available 12/17 13:28:24 Unspecified Relation Disorder of thyroid gland [email or web address] Not available 12/17 13:28:33 Unspecified Relation Arthritis [email or web address] Not available 04/2017 13:28:42 Medical History Condition Response Diabetes Y Anxiety Disorder Y Bleeding Disorder Y Other Arthritis N Emphysema N Acid Reflux (GERD) Y Depression Y COPD N Asthma N High Cholesterol Y Heart Disease N Rheumatoid Arthritis N Headaches Y Hypertension Y Gynecological HistoryNo gynecological history recorded. Obstetrics History GPAL:G 0 P 0 0 0 0 Immunizations Vaccine Type Date Status Note Provider Nam e and Address Organization Details Recorded Time Influenza, split virus, quadrivalent, PF 06/27/2017 completed Not Available [facility] 0 02:51:12 Past Encounters Encounter ID Performer Location Encounter Start Date Encounter Closed Date Diagnosis/Indication Diagnosis SNOMED-CT Code Diagnosis ICD10 Code Diagnosis Note [id number] BEE MONTANA MD [facility]STR[facility] [address] [facility], [address] [place] [address] 12/17/2016 13:06:09 12/17/2016 15:18:34 Celiac disease 013057468 K90.0 Irritable bowel syndrome characterized by constipation 959668041 K58.1 Abdominal pain 99652227 R10.9 Chronic constipation 236 855893 K59.03 Night sweats 91058132 R6 1 In the setting of chronic celiac disease will investigat e the small intestine further. [id number] [facility] [place] [address] 01/13/2017 18:02:45 01/13/2017 18:02:45 [id number] BEE MONTANA MD [facility]STR[facility] [address] [facility], [address] [place] [address] 01/14/2017 07:55:37 01/24/2017 14:41:06 [id number] BEE MONTANA MD GASTRO [address] [facility], [facility] [address] [place] [address] 1 04/22/2017 13:03:14 04/23/2017 06:50:21 Chronic constipation 888435918 K59.03 Severe chronic constipati on, Idiopathic and complicate d by opioids as well. Continue Relistor and magnesium oxide tablets. Start trulance as well to see if this helps, once daily. We discussed surgical therapy today, she does not want to consider this at this point. follow up in 4 months. Abdominal pain 94996604 R63.4 K59.00 E83.52 Check CBC, CMP, CRP, amylase and lipase. Abnormal weight loss 267 219213 R63.[address] scan in light of the symptoms of abdominal pain, severe constipati on, celiac,guero ght loss and night sweats. Night sweats 88447433 R6 1 Hypercalcemia 59073847 E 83.52 Hypercalce roula noted on lab testing from 3 months ago. Check PTH. Will get an endocrinol ogy consult. She has a history of osteopenia . Celiac disease 741663156 K90.0 Continue gluten-sagar e. [id number] MARIO STINSON MD HEM/ONC [facility] [address] [facility] [address] [place] [id number] 05/20/2017 14:57:36 05/20/2017 15:58:42 Leukocytosis 365993469 D72.829 Essential hypertension 90725151 I10 [id number] NBA CUNNINGHAM MD ENDOCRINO LOGY [address] [place] [address] 06/04/2017 13:08:46 06/04/2017 14:32:29 Postmenopausal osteoporosis 139414093 M81.0 According to national osteoporos is Foundation , indication s of anti-osteo porosis pharmacolo gic therapy include: A hip or vertebral [clinical symmetric] fracture T-score = -2.5 and the femoral neck or spine after appropriat e evaluation to exclude secondary causes Low bone mass [T-score between -1 and -2.5 at the femoral neck or spine] and that any of probabilit y of a hip fracture = 3% or a 10 year possibilit y of a major osteoporot ic fracture equals 20% based on [place]-adapted WHO of algorithm) . We had a detailed discussion in the office today about IV Reclast therapy benefits and side effects including atypical femoral fractures and ONJ. Continue yearly IV Reclast.On e-year follow-up bone density in our endocrine office i.e. baseline per patient request.Ch yuri BMP/GFR and 25-hydroxy vitamin D along with PTH/calciu m daily evaluate for causes of On loss. I discussed with patient the importance adequate dietary calcium intake ( 1,200 mg per day ), incorporat ing dietary supplement s if diet is insufficie nt. Also discussed with patient the importance of adequate vitamin D intake (1,000 IU per day), including supplement s if necessary. Primary hyperparathyroidism 23710827 E21.0 E83.52 PTH mediated hypercalce roula with a PTH of 83.4 pg per mL in the context of high normal calcium and elevated calcium of 10.3 mg/dL on 12/17/2016.S he does not have any history of kidney stones.Fur ther management to be determined based on laboratory workup. Requested to be seen for type 1 diabetes and she will schedule a follow-up visit and will obtain her records from [facility]. Total time spent face-to-fa ce with patient is 45 minutes with > 50 % spent on counseling on Osteoporos is complicati ons i.e. low trauma fracture, pharmacolo gic therapy i.e. IV Reclast minutes and side effects and long-term follow-up, primary hyperparat hyroidism pathophysi ology, causes and management plan i.e. surgery versus medical treatment. Patient verbalized understand ing and agreed with the above mentioned plan of care. I would like to thank Dr. Montana for the opportunit y to participat e in the care of this patient. [id number] NBA CUNNINGHAM MD ENDOCRINO LOGY [address] [place] [address] 06/27/2017 10:37:00 06/27/2017 11:27:39 Uncontrolled type 1 diabetes mellitus 268055661 E10.65 E10.649 E10.40 A1c in the office of 8.1% from 7.7% on 04/09/2017R andom point-of-c are blood glucoseGoa l A1c less than 7.5% I had a lengthy discussion with patient about the deleteriou s consequenc es of uncontroll ed hyperglyce roula in the form of microvascu lar complicati ons such as diabetic retinopath y, diabetic nephropath y, diabetic neuropathy and macrovascu lar complicati ons such as coronary artery disease, peripheral arterial disease and stroke. I had a lengthy discussion with patient about the importance of dietary carbohydra te consistenc y and restrictio n and not to exceed 45 g of carbohydra te per meal and 15-30 g per snack if needed. I discussed with patient her self-monit oring blood glucose readings, insulin pump printouts which showed markedly fluctuatin g blood glucose readings between hyperglyce roula, mild asymptomat ic hypoglycem ia and normal glycemia. In view of the above I recommende d to continue same insulin pump settings and exercise and importance of dietary carb consistenc y and restrictio n at present. I discussed with patient the importance of using insulin pump sensor [ We also discussed the option of MiniMed Medtronic 670 G]. She verbalized understand ing and is stated that she would be interested but she is concerned about the fact that she has markedly sclerosis and fibrosis at insulin pump size and she is worried that she cannot worry sensor. She is up to date with diabetic dilated eye exam i.e. Dr. Negrete, [facility] at [facility]. Obtain test results. Total time spent face-to-fa ce with patient is 25 minutes with > 50 % spent on counseling on deleteriou s consequenc es of uncontroll ed type 1 diabetes, importance of dietary carbohydra te consistenc y and restrictio n and insulin Printouts interpreta tion and Hypoglycem ia recognitio n and management plan. Active or passive immunization 916805525 Z23 Provided flu shot in the office today. Postmenopa usal osteoporosis 168936185 M81.0 According to national osteoporos is Foundation , indication s of anti-osteo porosis pharmacolo gic therapy include: A hip or vertebral [clinical symmetric] fracture T-score = -2.5 and the femoral neck or spine after appropriat e evaluation to exclude secondary causes Low bone mass [T-score between -1 and -2.5 at the femoral neck or spine] and that any of probabilit y of a hip fracture = 3% or a 10 year possibilit y of a major osteoporot ic fracture equals 20% based on [place]-adapted WHO of algorithm) . We had a detailed discussion in the office today about IV Reclast therapy benefits and side effects including atypical femoral fractures and ONJ. Continue yearly IV Reclast [ Pending insurance prior authorizat ion]One-ye ar follow-up bone density in our endocrine office i.e. baseline per patient request.Di scussed with patient her recent laboratory workup which showed normal vitamin D levels, kidney function tests and calcium. I discussed with patient the importance adequate dietary calcium intake ( 1,200 mg per day ), incorporat ing dietary supplement s if diet is insufficie nt. Also discussed with patient the importance of adequate vitamin D intake (1,000 IU per day), including supplement s if necessary. [id number] MARIO STINSON MD HEM/ONC [facility] [address] [place] [address] 06/27/2017 12:10:04 06/27/2017 13:10:01 B-cell chronic lymphocytic leukemia 255207720 C91.10 [id number] JARVIS DE LA TORRE APRN RHEUMATOL OGY [address] [place] [address] 07/23/2017 08:13:03 07/23/2017 09:50:36 Headache 98235678 R51 c/o history of headaches which she feels have increased in frequency. Would like to establish with neurology. Fibromyalgia 406852564 M 79.7 57 year old female presents with 20 year history of fibromyalg ia.She has diffuse tenderness along with 18/18 typical fibromyalg ia points.MSK exam normal with no synovitis or effusions. I reviewed her medication s with Dr. Martinez and from medication standpoint we would not add anything. Discussed with Amanda that recommend non pharmacolo gic treatment including aerobic conditioni ng, stretching , pool (aquatic) therapy and strengthen ing are strongly encouraged . I have given her an order for Physical therapy.di scussed good sleep hygiene as well.She will maintain neurontin 600 mg BID per PCP.No need for further rheumatolo gy workup.Ret urn as needed. [id number] VIDYA CHAPPELL MD NEUROLOGY [facility] CL[facility]ED [address] [place] [address] 08/20/2017 13:02:41 08/20/2017 16:08:39 Tobacco user 111418446 Z72.0 Carpal taryn parker syndrome 96744419 G56.01 [id number] VIDYA CHAPPELL MD NEUROLOGY [facility] [address] [place] [address] 08/20/2017 13:18:55 08/20/2017 16:08:58 Carpal tunnel syndrome 07075279 G56.01 [id number] BEE MONTANA MD GASTRO [address] [facility], [place] [address] 1 08/26/2017 12:48:00 08/29/2017 09:40:03 Celiac disease 789354470 K90.0 Continue gluten-sagar e. Irritable bowel syndrome 66910821 K58.9 Continued medical management as she has been doing. Return to clinic in 6 months. Therapeuti c opioid induced constipation 6872318976 44635 K59.03 [id number] NBA CUNNINGHAM MD ENDOCRINO LOGY SB [address] [place] [address] 1 08/29/2017 15:32:14 09/01/2017 08:13:59 Osteoporosis 00680200 M81.0 [id number] [place] [address] [place] [address] 1 09/26/2017 10:46:53 09/26/2017 11:28:48 Uncontrolled type 1 diabetes mellitus 249858322 E10.65 E10.649 E10.40 A1c in the office of 8% from 8.0%Random point-of-c are blood glucose 268 about one and half hours after last mealGoal A1c less than 7.5% I had a rediscussi on with patient about the deleteriou s consequenc es of uncontroll ed hyperglyce roula in the form of microvascu lar complicati ons such as diabetic retinopath y, diabetic nephropath y, diabetic neuropathy and macrovascu lar complicati ons such as coronary artery disease, peripheral arterial disease and stroke. I had a rediscussi on with patient about the importance of dietary carbohydra te consistenc y and restrictio n and not to exceed 45 g of carbohydra te per meal and 15-30 g per snack if needed. I discussed with patient her self-monit oring blood glucose readings, insulin pump printouts which showed markedly fluctuatin g blood glucose readings between hyperglyce roula, mild asymptomat ic hypoglycem ia and normal glycemia. In view of the above I recommende d to continue same insulin pump settings and exercise and importance of dietary carb consistenc y and restrictio n at present. She is up to date with diabetic dilated eye exam i.e. Dr. Negrete, , [facility] at [facility]. Obtain test results. Total time spent face-to-fa ce with patient is 15 minutes with > 50 % spent on counseling on deleteriou s consequenc es of uncontroll ed type 1 diabetes, importance of dietary carbohydra te consistenc y and restrictio n and insulin Printouts interpreta tion and Hypoglycem ia recognitio n and management plan. Hyperparathyroidism 6699 9008 E21.3 In the setting of normal calcium. Differenti al diagnosis could be either mild normocalce nette or secondary hyperparat hyroidism. Follow-up laboratory workup as below. Hyperlipidemia 04012331 E78.5 Check lipid panel [id number] MARIO STINSON MD HEM/ONC [facility] [address] [place] [address] 12/26/2017 12:26:16 12/26/2017 16:00:47 B-cell chronic lymphocytic leukemia 029497133 C91.10 [id number] VIDYA CHAPPELL MD NEUROLOGY [facility] CL[facility] [address] [place] [address] 01/14/2018 15:43:55 01/14/2018 16:17:54 Paresthesia 21265713 R20.2 Cervical radiculopathy 41183529 M54.12 Neck pain 98306003 M54.2 Long-term current use of opiate analgesic drug 3410098734 85953 Z79.891 Carpal taryn parker syndrome of right wrist 2106841609 46789 G56.01 History of decompression of median nerve 304485981 Z98.890 History of decompression of ulnar nerve 631445728 Z98.915 [id number] VIDYA CHAPPELL MD NEUROLOGY [facility] CLOSED [address] [facility] [place] [address] 02/10/2018 14:50:25 02/10/2018 16:07:24 Neck pain 70154868 M54.2 Chronic pain syndrome 37 2359691 G89.4 Cervical radiculopathy 84993287 M54.12 [id number] [address] [place] [address] 1 02/24/2018 13:02:41 02/24/2018 17:00:42 Irritable bowel syndrome characterized by constipation 191315131 K58.1 Severe constipati on, complicate d by chronic opiate use. Celiac disease 836478899 K90.0 Continue gluten-sagar e. [id number] MARIO STINSON MD HEM/ONC [facility] [address] [facility] [address] [place] [address] 06/19/2018 12:32:02 06/19/2018 13:35:01 B-cell chronic lymphocytic leukemia 809763789 C91.10 [id number] BEE MONTANA MD GASTRO [address] [place] [address] 1 10/22/2018 13:44:07 10/23/2018 14:13:38 Celiac disease 073266631 K90.0 Abdominal pain 18509120 R63.4 K59.00 E83.52 Constipation 51006628 K5 9.00 Diarrhea 41379808 R19.7 Abdominal bloating 33574 9008 R14.0 Irritable bowel syndrome 61418831 K58.9 [id number] MARIO STINSON MD HEM/ONC [facility] [address] [facility] 6 12/25/2018 11:14:13 12/25/2018 14:34:47 B-cell chronic lymphocytic leukemia 670472030 C91.10 [id number] BEE MONTANA MD GASTRO [address] [facility] [place] [address] 04/21/2019 14:03:30 04/22/2019 06:36:14 Irritable bowel syndrome characterized by constipation 997019717 K58.1 Severe constipati on, complicate d by chronic opiate use. Try to add in relistor one tab daily. She will pursue pelvic pt at this time. Did not do this winter. Rtc 6 months. Diarrhea 83495931 R19.7 Urgent siddharth shi for stool 63912981 R15.2 [id number] MARIO STINSON MD HEM/ONC SB CLOSED [address] [facility] [address] [place] [address] 06/29/2019 12:10:38 06/29/2019 12:44:41 [id number] BEE MONTANA MD GASTRO [address] [place] [address] 12/15/2019 13:52:14 12/16/2019 08:12:24 Celiac disease 266629953 K90.0 Continue gluten free diet. Egd 2020 Irritable bowel syndrome characterized by constipation 612175577 K58.1 Mixed. Stable symptoms. Continue mag oxide. Trulance. Rtc 1 yr. History of polyp of colon 652104253 Z86.010 Screening 2020 [id number] BEE MONTANA MD GASTRO [address] [facility] [place] [address] 01/23/2021 12:57:58 01/23/2021 13:22:45 Celiac disease 965225554 K90.0 If any gluten-sagar e diet. EGD will be scheduled. Check labs. Irritable bowel syndrome characterized by constipation 455160894 K58.1 sxs were much better in [place] this year. Continue trulance/m ag ox History of polyp of colon 053060762 Z86.010 Screening colonoscop y will be scheduled. rtc 1 yr [id number] BEE MONTANA MD SURGERY SCHEDULE [address] [place] [address] 03/01/2021 07:20:45 03/01/2021 07:21:20 [id number] BEE MONTANA MD GASTRO [address] [facility], [address] [place], [place] [address] 03/07/2022 12:31:47 03/12/2022 10:49:00 Celiac disease 520295141 K90.0 cont gfdrtc 1yr Irritable bowel syndrome characterized by constipation 597068800 K58.1 trulancema g ox History of polyp of colon 333366758 Z86.010 2025 Nausea 546438749 R11.0 Nausea and vomiting 1691999 R11.2 Liver func tion tests outside reference range 120557707 R94.5 slight ast/alt --u/s abd [id number] BEE MONTANA MD GASTRO [address] [facility], [place] [address] 03/27/2023 12:29:29 03/27/2023 13:25:44 Celiac disease 023341675 K90.0 cont gfd - has not done well lately with dietrtc 1yr Irritable bowel syndrome characterized by constipation 035793830 K58.1 trulancema g ox 3-5x a dayhas erratic results but better than in past History of polyp of colon 089397571 Z86.010 2025 Nausea 584840247 R11.0 Nausea and vomiting 1691999 R11.2 Liver func tion tests outside reference range 485919363 R94.5 U/s abd [id number] LORRAINE RIGGS MD [address] [place] [address] 03/16/2024 11:30:15 03/16/2024 13:32:09 History of malignant neoplasm of skin 418803542 Z85.828 L90.5 - No evidence of recurrence today - Call with any worrisome lesions or if treated lesions return - Return at regular intervals for skin exam as recommende d Multiple b enign melanocytic nevi 382379935 D22.5 - Benign lesions seen on exam today- SPF 30 or higher broad-spec trum sunscreen recommende d with re-applica tion every 2 hours- Discussed sun protection measures, including wide-brimm ed hat, sun-protec tive clothing, and avoidance of sun during peak hours of 10am-4pm- Avoid tanning beds as these can increase the chances of all 3 types of skin cancer- Instructed to monitor for changes and to call us for appointmen t with any changing or worrisome lesions Seborrheic keratosis 394 697079 L82.1 - Benign overgrowth s of skin - Hereditary Senile angioma 0801941 I 78.1 - Benign blood vessel growths - Hereditary Solar lentigo 18336438 L 81.4 - Benign brown spots - Sun-induce d Neoplasm o f uncertain behavior of skin 77704296 D48.5 Blade biopsies were performed. Wound care given. Will FUP with results. [id number] BEE MONTANA MD GASTRO [address] [facility], [address] [place] [address] 03/25/2024 12:39:04 03/25/2024 13:17:54 Celiac disease 586286968 K90.0 Cont gluten free diet. Irritable bowel syndrome characterized by constipation 106457435 K58.1 Been off trulance since August.U sing mag ox History of polyp of colon 693199035 Z86.010 2025 Therapeuti c opioid induced constipation 4930523985 84421 K59.03 [id number] LORRAINE RIGGS MD [facility] [address] [place] [address] 03/25/2024 15:54:46 03/25/2024 16:20:51 Superficial basal cell carcinoma 096830639 C44.519 Wound care givenFup in 6 m for FSE and recheck Inflamed s eborrheic keratosis [address]38144857 L82.[address] today no wound careFup with change or concerns [id number] LORRAINE RIGGS MD [facility] [address] [place] [address] 03/17/2025 11:28:04 03/17/2025 11:59:52 Multiple benign melanocytic nevi 979502583 D22.5 - Benign lesions seen on exam [...] changing or worrisome lesions Seborrheic keratosis 394 366653 L82.1 - Benign overgrowth s of skin - Hereditary Senile angioma 6508576 I 78.1 - Benign blood vessel growths - Hereditary Solar lentigo 46477360 L 81.4 - Benign brown spots - Sun-induce d History of malignant neoplasm of skin 617958948 Z85.828 L90.5 - No evidence of recurrence today - Call with any worrisome lesions or if treated lesions return - Return at regular intervals for skin exam as recommende d Actinic keratosis 351003 007 L57.0 Actinic keratoses are precancero us [...] is not resolved - may need Bx [id number] BEE MONTANA MD GASTRO [address] [facility], [address] [place] [address] 03/23/2025 12:52:26 03/23/2025 13:25:12 Celiac disease 293164433 K90.0 Cont gluten free diet. Irritable bowel syndrome characterized by constipation 638251195 K58.1 off trulanceus ing mag ox doing wellfiber and stool softner Therapeuti c opioid induced constipation 2117350054 71896 K59.03 using percocet prn -- much less than in past History of adenomatous polyp of colon 007720444 Z86.0101 2025 Alkaline p hosphatase above reference range 556176172 R74.8 Epigastric pain 82315522 R10.13 Health Concerns Section Related Observation LastModified by Organization Felicia khan LastModified Time None Recorded Concern Status LastModified by Organization Details LastModified Time None Recorded Advance Directives Directive None Recorded Payers Insurance Date Sequence Insurance Name Policy Number Policy Peña Covered Member ID Peña Member ID Guarantor Name 03/16/2024 3 [facility] Amanda Peraza [id number] Amanda Peraza 03/16/2024 2 [place] Amanda Peraza [id number] Amanda Peraza 09/06/2020 1 [id number] [place] Peraza [id number] Amanda Peraza 03/16/2024 2 [place] Amanda Peraza [id number] Amanda Peraza 03/14/2025 1 [place] Amanda Peraza [id number] Amanda Peraza 03/26/2025 2 [facility] ([facility]) [id number] [place] Peraza [id number] Amanda Peraza Notes Date Note Type Note Provider Name and Address Organization Details Recorded Time 03/16/2024 text/html annualhx of AMN - R anterior thighCLL. Fibromyalgia new spot on back, it's very itch. LORRAINE RIGGS MD [address] [place] [address], [phone], [facility] 03/16/2024 12:05:13 03/25/2024 text/html Here for treatme nt of the skin cancers she bx at last visit LORRAINE RIGGS MD [address] [place] [address], [phone], [facility] 03/25/2024 16:11:15 03/25/2024 text/html Stable symptomsd oing it off trulance.Constipaito n is predominant BEE MONTANA MD [address] [place] [address], [phone], [facility] 03/25/2024 13:10:42 03/17/2025 text/html annual, FSEhx of AMN - R anterior thighCLL. Fibromyalgia concerns: brown spots all over the legs and arms- L dorsal arm - brown spot, could be sun spot Pt has diabetes LORRAINE RIGGS MD [address] [place] [address], [phone], [facility] 03/17/2025 12:18:29 03/23/2025 text/html cataractsabout t o have surgerybm much better -- daily bm -- better since stopping daily morphineuses rare percocet 1-2 a weekstarted diarrhea in past few weeksepigas pain ast few weeks BEE MONTANA MD [address] [place], [address], [facility] 03/23/2025 13:16:29 OBGyn Episode No OBEpisode recorded.
--- OUTSIDE RECORDS SUMMARY | 2025-04-05 11:13 | XMS_ITS | Encounter Summary ---
Author Organization [facility] Address [address] [place] [address] Care Team Providers Care Instrument And Electrical Technician Name Role Phone Dorian Guerra MD Primary Care Provider +1- [phone] Encounter Details Date Type Department Care Team (Late st Contact Info) Description 03/23/2025 Orders Only [facility] [address] [place] [address] Rubio Montana MD [address] [place] [address] Social History Tobacco Use Types Packs/Day Years [...] 11:00 AM EDT Office Visit Malaika Val[facility] Endocrinology [address] [place] [address] Traci Nathan DO [address] [address] 08/10/2025 12:40 PM EDT [facility] [address] [place] [address] Traci Nathan, DO [address] [place] [address] documented as of this encounter Procedures Procedure Name Priority Date/Time Associated Diagnosis Comments LIPASE, PLASMA Routine 03/23/2025 2:27 PM EDT documented in this encounter Results * Lipase, Plasma (03/23/2025 2:27 PM EDT) External Lipase 13 13 - 60 U/L 03/23/2025 3:43 PM EDT [facility] 03/23/2025 2:27 PM EDT 03/23/2025 2:45 PM EDT us Rubio Montana MD LAB BLOOD ORDERABLES Final R esult [facility] [address] [place] [address], documented in this encounter Visit Diagnoses Not on filedocumented in this encounter Additional Health Concerns Assessment Noted Time A fall risk assessment has been complete d for the patient 02/19/2023 10:03 AM EDT A Body Mass Index follow-up plan has been documented for the patient 03/02/2025 2:57 PM EDT documented as of this encounter Care Teams Instrument And Electrical Technician Relationship Specialty Start Date End Date Dorian Guerra MD [address] [place] [address] PCP - General 02/23/21 documented as of this encounter
--- OUTSIDE RECORDS SUMMARY | 2025-04-05 11:14 | XMS_ITS | Encounter Summary ---
Author Organization [facility] Address [address] [place] [address] Care Team Providers Care Superintendent Transportation Name Role Phone Dorian Guerra MD Primary Care Provider [phone]- [phone] Encounter Details Date Type Department Care Team (Late st Contact Info) Description 03/23/2025 Orders Only [facility] [address] [place] [address] Rubio Montana MD [address] [place] [address] Social History Tobacco Use Types Packs/Day Years [...] 11:00 AM EDT Office Visit Malaika Valle [facility] Endocrinology [address] [place] [address] Traci Nathan DO [address] [address] 08/10/2025 12:40 PM EDT Office Visit [facility] Endocrinology [address] [place] [address] Traci Nathan, DO [address] [place] [address] documented as of this encounter Procedures Procedure Name Priority Date/Time Associated Diagnosis Comments CELIAC PANEL REFLEX TO TITER Routine 03/23/2025 2:27 PM EDT documented in this encounter Results * (ABNORMAL) Celiac panel reflex to titer (03/23/2025 2:27 PM EDT) External Gliadin IgA 47.6(H) U/mL 03/25/2025 3:13 AM EDT [facility] Comment: Value Interpretation ----- <15.0 Antibody not detected > or = 15.0 Antibody detected External Gliadin IgG 1.7 U/mL 03/25/2025 3:13 AM EDT [facility] Comment: Value Interpretation ----- <15.0 Antibody not detected > or = 15.0 Antibody detected External Tissue Transglutaminase IgA Ab 11.0 U/mL 03/25/2025 3:56 AM EDT [facility] Comment: Value Interpretation ----- <15.0 Antibody not detected > or = 15.0 Antibody detected External Endomysial IgA Ab Titer NEGATIVE NEGATIVE 03/25/2025 6:15 AM EDT [facility] External IgA Quant 179 70 - 400 mg/dL 03/23/2025 3:43 PM EDT [facility] 03/23/2025 2:27 PM EDT 03/23/2025 2:47 PM EDT us Rubio Montana MD LAB BLOOD ORDERABLES Final R esult [facility] [address] [place] [address], documented in this encounter Visit Diagnoses Not on filedocumented in this encounter Additional Health Concerns Assessment Noted Time A fall risk assessment has been complete d for the patient 02/19/2023 10:03 AM EDT A Body Mass Index follow-up plan has been documented for the patient 03/02/2025 2:57 PM EDT documented as of this encounter Care Teams Superintendent Transportation Relationship Specialty Start Date End Date Dorian Guerra MD [address] [place] [id number] PCP - General 02/23/21 documented as of this encounter
--- OUTSIDE RECORDS SUMMARY | 2025-04-05 11:14 | XMS_ITS | Encounter Summary ---
Author Organization [email or web address] Address [address] [place] [address] Care Team Providers Care Reporting Developer Name Role Phone Dorian Guerra MD Primary Care Provider +1- [phone] Bert Jett MD Unavailable Bijal Sloan RN Unavailable Unavailable Xuan Hayden PA-C Unavailable [phone] Alex Zuleta PA-C Unavailable [phone] Encounter Details Date Type Department Care Team (Late st Contact Info) Description 12/16/2018 Transcribed Document [facility] [place] [address] [place] [address] ProviderVik MD [address] [place] [address] Social History Tobacco Use Types Packs/Day Years Used Date Smoking Tobacco: Never Assessed Comments Unknown Sex and Gender Information Value Date Recorded Sex Assigned at Not on file Legal Sex Female 5:17 PM CDT Gender Identity Not on file Sexual Orientation Not on file documented as of this encounter Miscellaneous Notes * Cerner Conversion Note - Vik Milton MD - 12/16/2018 1:05 PM EDITOR GREETING CARD DATE OF ADMISSION: 12/16/2018 HISTORY OF PRESENT ILLNESS: This is a 58-year-old female with a chief complaint of chronic neck pain for several years' duration. The patient presents today for a followup visit. The patient is complaining today of some neck pain that radiates into her head and shoulders. She also was noting some severe itching at the left radiofrequency ablation sites on her neck. There was no rash noted. I did discuss with the patient to try using cortisone cream or Cesar Chavez lotion to try to help moisturize her skin. The patient states that at times she is getting some numbness with her neck pain, especially if she looks up for any length of time or if she looks down for any lengthy period of time. The patient states that she does not seem to be sleeping really well lately. She states she is only sleeping about 2-4 hours at a time. She states; however, she did quit smoking about a week ago. She states that she is using nicotine patches, though to try to help her so that she can completely quit smoking and nicotine. The patient states that she is finally getting relief from that left cervical rhizotomy. She states it took her about nine weeks. She states that for the first week after getting it, she had a lot of pain, but now she is doing much better. The patient does continue to have headaches from [id number]. However, she is seeing her primary care provider, who manages that. Of note, the patient is not prescribed any controlled substances from this clinic. However her HARLEY was reviewed and found to be appropriate at today's office visit. The patient is prescribed Xanax, gabapentin, Ambien, and morphine sulfate by her primary care provider Dr. Dorian Guerra. REVIEW OF SYSTEMS: Constitutional, Respiratory, Cardiovascular, Ophthalmology, Gastrointestinal, Genitourinary, ENT, Musculoskeletal, Integumentary, Neurology, Psychiatry, Endocrine, Hematology were not changed from 09/23/2018. PHYSICAL EXAMINATION: VITAL SIGNS: Blood pressure 159/71, weight 132 pounds, height 5 feet 9 inches, heart rate 72, respiratory rate 14, O2 saturation 97% on room air, temperature 97.3. Hours of sleep 2-4. Pain 2/10. No change in physical and neurological exam. Muscle tone power sensory and deep tendon reflexes were unchanged. The nurse notes, vital signs, and medication were reviewed and evaluated. ASSESSMENT: 1. Chronic neck pain secondary to degenerative joint disease and degenerative disk disease of the cervical spine. 2. Cervical radiculopathy. 3. Cervical spondylosis. 4. History of fibromyalgia. 5. History of chronic migraine headaches. 6. Chronic smoking. 7. History of lymphocytic leukemia. PLAN: 1. The patient states that she is getting relief now from her left cervical radiofrequency ablation that was completed on 09/15/2018. She states it took her about nine weeks, but now she is finally getting good relief with it. 2. The patient is going to return as needed to this clinic. We discussed with her to contact this clinic when she is ready for more injection therapy. 3. The patient does continue to take Flexeril 10 mg 3 times a day as needed for muscle spasms. She states that she is regularly taking that now. 4. The patient is prescribed medications by her primary care provider. Her primary care provider does prescribe Xanax, gabapentin, Ambien, and morphine sulfate. The patient is not prescribed any opioids from this clinic. 5. The patient states that she has quit smoking for about a week now. I encouraged her to stay not smoking. 6. The assessment and plan for today's visit was reviewed by Dr. Hendrix. However, there were no medications prescribed at today's visit. 7. I have encouraged the patient to continue doing her home exercises to include walking, stretching, and range of motion exercises. Dictated By: Lulu Sanchez APRN For Korey Hendrix M.D., MARIELLE Pain Certified Korey Hendrix M.D., MARIELLE Pain Certified Dict: 12/16/2018 13:05:16 Trans: 12/16/2018 13:45:04 CC1: Korey Hendrix M.D., MARIELLE Pain Certified CC2: Dr. Dorian Guerra CC3: Yovany Chappell MD Electronically signed by [facility], [facility] Conversion Engraver Tender Cerner at 01/30/2023 8:15 AM CDT documented in this encounter Plan of Treatment Not on file documented as of this encounter Visit Diagnoses Not on filedocumented in this encounter Care Teams Reporting Developer Relationship Specialty Start Date End Date Dorian Guerra MD [address] [place] [address] PCP - General General Internal Medicine 04/02/23 Bert Jett MD [address] [address] Medical Oncologist Hematology and Oncology 04/07/23 Bijal Sloan, RN Registered Nurse Oncology 04/07/23 Xuan Hayden, JEREMY [address] [address] Physician Filtrose Crusher Oncology 04/07/23 Alex Zuleta PA-C [address] [place] [address] Orthopedic Surgery 04/10/23 documented as of this encounter
--- OUTSIDE RECORDS SUMMARY | 2025-04-05 11:14 | XMS_ITS | Encounter Summary ---
Author Organization [facility] Address [address] [place] [address] Care Team Providers Care Electric Motor Repairing Supervisor Name Role Phone Dorian Guerra MD Primary Care Provider [phone]- [phone] Encounter Details Date Type Department Care Team (Late st Contact Info) Description 03/23/2025 Orders Only [facility] [address] [place] [phone] Rubio oMntana MD [address] [place] [address] Social History Tobacco Use Types Packs/Day Years [...] 11:00 AM EDT Office Visit Malaika Valle [facility] Endocrinology [address] [place] [phone] Traci Nathan DO [address] [address] 08/10/2025 12:40 PM EDT Office Visit [facility] Endocrinology [address] [place] [address] Traci Nathan, DO [address] [place] [address] documented as of this encounter Procedures Procedure Name Priority Date/Time Associated Diagnosis Comments CBC WITH AUTO DIFFERENTIAL Routine 03/23/2025 2:27 PM EDT documented in this encounter Results * (ABNORMAL) CBC and Differential (03/23/2025 2:27 PM EDT) External WBC 9.3 3.8 - 10.8 10*3/uL 03/23/2025 9:26 PM EDT [facility] External Red Blood Cell (RBC) 4.30 3.80 - 5.20 10*6/uL 03/23/2025 9:26 PM EDT [facility] External Hemoglobin 14.2 12.0 - 16.0 g/dL 03/23/2025 9:26 PM EDT [facility] External Hematocrit 42.7 35.0 - 47.0 % 03/23/2025 9:26 PM EDT [facility] External MCV 99 80 - 100 fL 03/23/2025 9:26 PM EDT [facility] External MCH 33 26 - 35 pg 03/23/2025 9:26 PM EDT [facility] External MCHC 33 32 - 36 g/dL 03/23/2025 9:26 PM EDT [facility] External RDW 13.5 11.0 - 15.0 % 03/23/2025 9:26 PM EDT [facility] External Mean Platelet Volume 8.0 6.2 - 10.5 fL 03/23/2025 9:26 PM EDT [facility] External Platelet Count (Plt) 200 150 - 400 10*3/uL 03/23/2025 9:26 PM EDT [facility] External Neutrophil# 4.0 1.6 - 8.4 10*3/uL 03/23/2025 9:26 PM EDT [facility] External Lymphocyte# 4.7 0.4 - 5.1 10*3/uL 03/23/2025 9:26 PM EDT [facility] External Absolute Monocyte (Abs [place]) 0.5 0.0 - 1.2 10*3/uL 03/23/2025 9:26 PM EDT [facility] External Eosinophils# 0.2 0.0 - 0.8 10*3/uL 03/23/2025 9:26 PM EDT [facility] External Baso# 0.0 0.0 - 0.3 10*3/uL 03/23/2025 9:26 PM EDT [facility] External Neutrophils % 43.0 42.0 - 78.0 % 03/23/2025 9:26 PM EDT [facility] External Lymphocyte % 50.0(H) 11.0 - 47.0 % 03/23/2025 9:26 PM EDT [facility] External Monocyte % 5.0 0.0 - 11.0 % 03/23/2025 9:26 PM EDT [facility] External Eosinophil% 2.0 0.0 - 7.0 % 03/23/2025 9:26 PM EDT [facility] External Basophil % 0.0 0.0 - 3.0 % 03/23/2025 9:26 PM EDT [facility] External Nucleated RBC%-Auto 0.3 0.0 - 0.9 % 03/23/2025 9:26 PM EDT [facility] External Nucleated RBC Absolute 0.02 Not Estab. 10*3/uL 03/23/2025 9:26 PM EDT [facility] 03/23/2025 2:27 PM EDT 03/23/2025 2:45 PM EDT us Rubio Montana MD LAB BLOOD ORDERABLES Final R esult [facility] [address] [place] [address], documented in this encounter Visit Diagnoses Not on filedocumented in this encounter Additional Health Concerns Assessment Noted Time A fall risk assessment has been complete d for the patient 02/19/2023 10:03 AM EDT A Body Mass Index follow-up plan has been documented for the patient 03/02/2025 2:57 PM EDT documented as of this encounter Care Teams Electric Motor Repairing Supervisor Relationship Specialty Start Date End Date Dorian Guerra MD [address] [place] [address] PCP - General 02/23/21 documented as of this encounter
--- OUTSIDE RECORDS SUMMARY | 2025-04-05 11:14 | XMS_ITS | Encounter Summary ---
Author Organization [facility] Address [address] [place] [address] Care Team Providers Care Clinical Product Specialist Name Role Phone Dorian Guerra MD Primary Care Provider +1- [phone] Encounter Details Date Type Department Care Team (Late st Contact Info) Description 03/23/2025 Orders Only [facility] [address] [place] [phone] Rubio Montana MD [address] [place] [address] Social History Tobacco Use Types Packs/Day Years [...] 11:00 AM EDT Office Visit Malaika Valle [facility] Endocrinology [address] [place] [phone] Traci Nathan DO [address] [address] 08/10/2025 12:40 PM EDT Office Visit [facility] Endocrinology [address] [place] [address] Traci Nathan, DO [address] [place] [address] documented as of this encounter Procedures Procedure Name Priority Date/Time Associated Diagnosis Comments MANUAL DIFFERENTIAL Routine 03/23/2025 2 :27 PM EDT documented in this encounter Results * Manual Differential (03/23/2025 2:27 PM EDT) External Band Neutrophil% 0.0 0.0 - 7.0 % 03/23/2025 9:26 PM EDT [facility] External Atypical Lymph% 0 0 - 1 % 03/23/2025 9:26 PM EDT [facility] External Metamyelocyte % 0 0 - 1 % 03/23/2025 9:26 PM EDT [facility] External Myelocyte % 0 0 - 1 % 03/23/2025 9:26 PM EDT [facility] External Promyelocyte% 0 0 % 03/23/2025 9:26 PM EDT [facility] External Blast% 0 0 % 9:26 PM EDT [facility] External Nucleated RBC%-Manual 0 0 - 1 /100{WBC} 03/23/2025 9:26 PM EDT [facility] External Smudge Cells 0 0 /100{WBC} 03/23/2025 9:26 PM EDT [facility] External RBC Morphology Comment NORMAL 03/23/2025 9:26 PM EDT [facility] External Platelet Morphology NORMAL 03/23/2025 9:26 PM EDT [facility] 03/23/2025 2:27 PM EDT 03/23/2025 2:45 PM EDT us Rubio Montana MD LAB BLOOD ORDERABLES Final R esult [facility] [address] [place] [address], documented in this encounter Visit Diagnoses Not on filedocumented in this encounter Additional Health Concerns Assessment Noted Time A fall risk assessment has been complete d for the patient 02/19/2023 10:03 AM EDT A Body Mass Index follow-up plan has been documented for the patient 03/02/2025 2:57 PM EDT documented as of this encounter Care Teams Clinical Product Specialist Relationship Specialty Start Date End Date Dorian Guerra MD [address] [place] [address] PCP - General 02/23/21 documented as of this encounter
--- OUTSIDE RECORDS SUMMARY | 2025-04-05 11:14 | XMS_ITS | Data Portability ---
Author Organization [place] - [facility] Address [address] [place] [address] Care Team Providers Care Independent Film Maker Name Role Phone TOD GUERRA Primary Care Provider [phone] [facility] DIABETES AND ENDOCRINOLOGY PEDIATRICS Diabetes Education VIDYA MALAVE Lidar Scientist PANDA MACHUCA Dentist BEE LOMBARDO Galley Worker [facility] Hematology/Oncology LUIS FERNANDO GIRALDO Loom Checker Assessment Encounter Date Assessment Date Assessment LastModified by Organization Details LastModified Time 08/19/2024 08/19/2024 Surveillance laboratory studies have been ordered to assess for the target of treatment as well as any potential end-organ toxicity. [email or web address] Not available 08/19/2024 10:19:50 Plan of Treatment Reminders Order Date Submit Date Provider Last Modified By Organization Details Last Modified Time Details Appointments 6 MONTH FU 15 2024 02:15P Javier Jimenez rd, MD Not available Not available Not available Lab lipid panel, serum 2024 025 PATEL [facility], [address], [place], [address], 02/22/2025 15:20:59 CBC w/ auto diff 2024 025 PATEL [facility], [address], [place], [address], 02/22/2025 15:20:56 unlisted lab - toxassure select 13 2024 025 PATEL Ileana, [address], [address], [place], [address], 02/22/2025 15:20:54 CMP, serum or plasma 2024 025 PATEL Ileana, [address], [place] [address], [place], [address], 02/22/2025 15:20:57 magnesium , serum or plasma 2024 025 PATEL Ileana, [address], [address], [place], [address], 02/22/2025 15:21:04 HbA1c (hemoglob in A1c), blood 2024 025 PATEL Tejeda, [address], [place] [address], [place], [address], 02/22/2025 15:21:03 cobalamin and folate panel, serum 2024 025 PATEL Tejeda, [address], [place] [address], [place], [address], 02/22/2025 15:21:02 microalbu min/creat inine, mass ratio, urine 2024 025 PATEL Tejeda, [address], [address], [place], [address], 02/22/2025 15:21:00 lipid panel, serum 2023 024 PATEL Tejeda, [address], [address], [place], [address], 08/20/2024 06:20:26 CMP, serum or plasma 2023 024 PATEL Tejeda, [address], [address], [place], [address], 08/20/2024 06:20:25 magnesium , serum or plasma 2023 024 PATEL [facility], [address], [address], [place], [address], 08/20/2024 06:20:28 CBC w/ auto diff 2023 024 PATEL [facility], [address], [address], [place], [address], 08/20/2024 06:20:24 HbA1c (hemoglob in A1c), blood 2023 024 PATEL [facility], [address], [address], [place], [address], 08/20/2024 06:20:27 Referral None recorded. Procedures None recorded. Surgeries None recorded. Imaging DEXA, axial skeleton + vertebral fracture assessmen t [address] (Centralized Scheduling), [address] [place] [address] , [place], [address], 02/15/2025 17:04:50 Medication Orders cyclobenz aprine 10 mg tablet 2024 025 [place] [employer] [facility] [facility] #88109, [address], [id number], 02/15/2025 14:56:05 pravastat in 40 mg tablet 2024 025 [facility], [address], [id number], 02/15/2025 14:56:04 zolpidem ER 12.5 mg tablet,ex tended release,m ultiphase 2024 025 [facility] [facility]874[facility], [address], [id number], 02/15/2025 14:56:09 ropinirol e 1 mg tablet 2024 025 [facility] #66609, [address], [id number], 02/15/2025 14:56:06 Xanax 1 mg tablet 2024 025 [facility] #96150, [address], [id number], 02/15/2025 14:56:11 Pristiq 100 mg tablet,ex tended release 2024 025 [facility] #33013, [address], [id number], 02/15/2025 14:56:02 lamotrigi ne 200 mg tablet 2024 025 [facility] #94814, [address], [id number], 02/15/2025 14:56:03 amlodipin e 5 mg tablet [email or web address] [facility] #51104, [address], [id number], 02/15/2025 14:56:46 potassium chloride ER 10 mEq capsule,e xtended release 2024 025 [facility] #92192, [address], [id number], 02/15/2025 14:56:06 valsartan 320 mg tablet 2024 025 [facility] #81482, [address], [id number], 02/15/2025 14:56:07 Neurontin 300 mg capsule 2024 025 [facility] #53737, [address], [id number], 02/15/2025 14:56:10 pravastat in 40 mg tablet 2023 024 [facility] #71277, [address], [id number], 08/19/2024 10:21:30 ropinirol e 1 mg tablet 2023 024 [facility] #36425, [address], [id number], 08/19/2024 10:21:30 Pristiq 100 mg tablet,ex tended release 2023 024 [facility] #16839, [address], [id number], 08/19/2024 10:21:29 morphine ER 10 mg capsule,e xtended release pellets 2023 024 [email or web address] 8 [facility] #58805, [address], [id number], 02/15/2025 14:29:53 Percocet 5 mg-325 mg tablet 2023 024 [facility] #59653, [address], [id number], 08/19/2024 10:21:34 valsartan 320 mg tablet 2023 024 [facility] #19595, [address], [id number], 08/19/2024 10:21:29 Neurontin 300 mg capsule 2023 024 [facility] #82030, [address], [id number], 07/15/2024 16:05:35 morphine ER 10 mg capsule,e xtended release pellets 2023 [email or web address] [place] [address] [facility] #27114, [address], [id number], 02/15/2025 14:29:53 zolpidem ER 12.5 mg tablet,ex tended release,m ultiphase 2023 024 [facility] #76575, [address], [id number], 07/15/2024 16:05:33 Xanax 1 mg tablet 2023 024 [facility] #60227, [address], [id number], 06/16/2024 16:35:58 Lamictal 200 mg tablet 2023 024 [facility] #88763, [address], [id number], 06/16/2024 16:35:57 morphine ER 10 mg capsule,e xtended release pellets 2023 024 [email or web address] 8 [facility] #19433, [address], [id number], 02/15/2025 14:29:53 amlodipin e 5 mg tablet 2023 024 [facility], [address], [id number], 06/16/2024 16:36:00 Neurontin 300 mg capsule 2023 024 PATEL [facility] #22731, [address], [id number], 05/19/2024 14:56:41 morphine ER 10 mg capsule,e xtended release pellets 2023 024 [email or web address] 8 [facility] #30182, [address], [id number], 02/15/2025 14:29:53 valacyclo vir 1 gram tablet 2023 024 [email or web address] [facility] #02842, [address], [id number], 02/18/2025 10:37:38 Patient TargetsNo targets recorded. Patient Instructions Encounter Date Encounter Id Patient Instructions Last Modified By Organization Details Last Modified Time 07/15/2024 [id number] Today's visit is part of long-term chronic disease management as well as chronic wellness management. Ongoing efforts to consolidate and optimize care is the goal at each visit. Today's visit includes the management of surveillance laboratory studies, discussion of their values if necessary, in addition to the interaction of multiple comorbidities, allowing the necessary additional time required [email or web address] [id number] Not available 07/15/2024 16:02:26 Reason for Referral None Reported. Results Created Date Observation Date Name Description Value Unit Range Abnormal Flag Note LastModifiedBy Organization Detail LastModifiedTime 08/19/2008/20/2024 CBC WITH DIFFE RENTI AL/PL ATELE T WBC 9.0 x10e3 /uL 3.4-10 .8 normal Not Available [facility] ([facility]) [address] [facility], [place], [address], 08/20/2024 06:20:24 08/19/20 24 08/20/2024 CBC WITH DIFFE RENTI AL/PL ATELE T RBC 4.39 x10e6 /uL 3.77-5 .28 normal Not Available [facility] ([facility]) [address] [place], [address], 08/20/2024 06:20:24 08/19/20 24 08/20/2024 CBC WITH DIFFE RENTI AL/PL ATELE T hemoglobin 14.0 g/dL 11.1-1 5.9 normal Not Available [facility] ([facility]) [address] [place], [address], 08/20/2024 06:20:24 08/19/20 24 08/20/2024 CBC WITH DIFFE RENTI AL/PL ATELE T hematocrit 42.5 % 34.0-4 6.6 normal Not Available [facility] ([facility]) [address] [place], [address], 08/20/2024 06:20:24 08/19/20 24 08/20/2024 CBC WITH DIFFE RENTI AL/PL ATELE T MCV 97 fL 79-97 normal Not Available [facility] ([facility]) [address] [place], [address], 08/20/2024 06:20:24 08/19/20 24 08/20/2024 CBC WITH DIFFE RENTI AL/PL ATELE T MCH 31.9 pg 26.6-3 3.0 normal Not Available [facility] ([facility]) [address] [place], [address], 08/20/2024 06:20:24 08/19/20 24 08/20/2024 CBC WITH DIFFE RENTI AL/PL ATELE T MCHC 32.9 g/dL 31.5-3 5.7 normal Not Available [facility] ([facility]) [address] [place], [address], 08/20/2024 06:20:24 08/19/20 24 08/20/2024 CBC WITH DIFFE RENTI AL/PL ATELE T RDW 12.0 % 11.7-1 5.4 Not Available [facility] ([facility]) [address] [facility], [place], [address], 08/20/2024 06:20:24 08/19/20 24 08/20/2024 CBC WITH DIFFE RENTI AL/PL ATELE T platelets 209 x10e3 /uL 150-45 0 normal Not Available [facility] ([facility]) [address] [facility] [address], [place], [address], 08/20/2024 06:20:24 08/19/20 24 08/20/2024 CBC WITH DIFFE RENTI AL/PL ATELE T neutrophils 49 % not estab. normal Not Available [facility] ([facility]) [address] [facility] [address], [place], [address], 08/20/2024 06:20:24 08/19/20 24 08/20/2024 CBC WITH DIFFE RENTI AL/PL ATELE T lymphs 43 % not estab. normal Not Available [facility] ([facility]) [address] [facility] [address], [place], [address], 08/20/2024 06:20:24 08/19/20 24 08/20/2024 CBC WITH DIFFE RENTI AL/PL ATELE T monocytes 5 % not estab. normal Not Available [facility] ([facility]) [address] [facility] [address], [place], [address], 08/20/2024 06:20:24 08/19/20 24 08/20/2024 CBC WITH DIFFE RENTI AL/PL ATELE T eos 2 % not estab. normal Not Available [facility] ([facility]) [address] [facility] [address], [place], [address], 08/20/2024 06:20:24 08/19/20 24 08/20/2024 CBC WITH DIFFE RENTI AL/PL ATELE T basos 1 % not estab. normal Not Available [facility] ([facility]) [address] [place], [address], 08/20/2024 06:20:24 08/19/20 24 08/20/2024 CBC WITH DIFFE RENTI AL/PL ATELE T immature cells PERFECT BINDER OPERATOR Not Available [facility] ([facility]) [address] [facility] [address], [place], [address], 08/20/2024 06:20:24 08/19/20 24 08/20/2024 CBC WITH DIFFE RENTI AL/PL ATELE T neutrophils (absolute) 4.4 x10e3 /uL 1.4-7. 0 normal Not Available [facility] ([facility]) [address] [place], [address], 08/20/2024 06:20:24 08/19/20 24 08/20/2024 CBC WITH DIFFE RENTI AL/PL ATELE T lymphs (absolute) 3.9 x10e3 /uL 0.7-3. 1 above high normal Not Available [facility] ([facility]) [address] [place], [address], 08/20/2024 06:20:24 08/19/20 24 08/20/2024 CBC WITH DIFFE RENTI AL/PL ATELE T monocytes(ab solute) 0.5 x10e3 /uL 0.1-0. 9 normal Not Available [facility] ([facility]) [address] [place], [address], 08/20/2024 06:20:24 08/19/20 24 08/20/2024 CBC WITH DIFFE RENTI AL/PL ATELE T eos (absolute) 0.2 x10e3 /uL 0.0-0. 4 normal Not Available [facility] ([facility]) [address] [place], [address], 08/20/2024 06:20:24 08/19/20 24 08/20/2024 CBC WITH DIFFE RENTI AL/PL ATELE T baso (absolute) 0.1 x10e3 /uL 0.0-0. 2 normal Not Available [facility] ([facility]) [address] [facility] [address], [place], [address], 08/20/2024 06:20:24 08/19/20 24 08/20/2024 CBC WITH DIFFE RENTI AL/PL ATELE T immature granulocytes 0 % not estab. Not Available [facility] ([facility]) [address] [facility] [address], [place], [address], 08/20/2024 06:20:24 08/19/20 24 08/20/2024 CBC WITH DIFFE RENTI AL/PL ATELE T immature grans (abs) 0.0 x10e3 /uL 0.0-0. 1 Not Available [facility] ([facility]) [address] [facility] [address], [place], [address], 08/20/2024 06:20:24 08/19/20 24 08/20/2024 CBC WITH DIFFE RENTI AL/PL ATELE T NRBC PERFECT BINDER OPERATOR Not Available [facility] ([facility]) [address] [facility] [address], [place], [address], 08/20/2024 06:20:24 08/19/20 24 08/20/2024 CBC WITH DIFFE RENTI AL/PL ATELE T hematology comments: PERFECT BINDER OPERATOR Not Available [facility] ([facility]) [address] [facility] [address], [place], [address], 08/20/2024 06:20:24 08/19/20 24 08/20/2024 COMP. METAB OLIC PANEL (14) glucose 171 mg/dL 70-99 above high normal Not Available [facility] ([facility]) [address] [place], [address], 08/20/2024 06:20:25 08/19/20 24 08/20/2024 COMP. METAB OLIC PANEL (14) BUN 12 mg/dL 8-27 normal Not Available [facility] ([facility]) [address] [facility] [address], [place], [address], 08/20/2024 06:20:25 08/19/20 24 08/20/2024 COMP. METAB OLIC PANEL (14) creatinine 0.99 mg/dL 0.57-1 .00 normal Not Available [facility] ([facility]) [address] [place], [address], 08/20/2024 06:20:25 08/19/20 24 08/20/2024 COMP. METAB OLIC PANEL (14) eGFR 64 mL/mi n/1.7 3 >59 normal Not Available [facility] ([facility]) [address] [place], [address], 08/20/2024 06:20:25 08/19/20 24 08/20/2024 COMP. METAB OLIC PANEL (14) BUN/creatini ne ratio 12 12-28 normal Not Available [facility] ([facility]) [address] [facility] [address], [place], [address], 08/20/2024 06:20:25 08/19/20 24 08/20/2024 COMP. METAB OLIC PANEL (14) sodium 139 mmol/ L 134-14 4 normal Not Available [facility] ([facility]) [address] [place], [address], 08/20/2024 06:20:25 08/19/20 24 08/20/2024 COMP. METAB OLIC PANEL (14) potassium 4.4 mmol/ L 3.5-5. 2 normal Not Available [facility] ([facility]) [address] [place], [address], 08/20/2024 06:20:25 08/19/20 24 08/20/2024 COMP. METAB OLIC PANEL (14) chloride 99 mmol/ L 96-106 normal Not Available [facility] ([facility]) [address] [place], [address], 08/20/2024 06:20:25 08/19/20 24 08/20/2024 COMP. METAB OLIC PANEL (14) carbon dioxide, total 25 mmol/ L 20-29 normal Not Available [facility] ([facility]) [address] [place], [address], 08/20/2024 06:20:25 08/19/20 24 08/20/2024 COMP. METAB OLIC PANEL (14) calcium 10.0 mg/dL 8.7-10 .3 normal Not Available [facility] ([facility]) [address] [place], [address], 08/20/2024 06:20:25 08/19/20 24 08/20/2024 COMP. METAB OLIC PANEL (14) protein, total 6.8 g/dL 6.0-8. 5 normal Not Available [facility] ([facility]) [address] [place], [address], 08/20/2024 06:20:25 08/19/20 24 08/20/2024 COMP. METAB OLIC PANEL (14) albumin 4.5 g/dL 3.9-4. 9 normal Not Available [facility] ([facility]) [address] [place], [address], 08/20/2024 06:20:25 08/19/20 24 08/20/2024 COMP. METAB OLIC PANEL (14) globulin, total 2.3 g/dL 1.5-4. 5 Not Available [facility] ([facility]) [address] [place], [address], 08/20/2024 06:20:25 08/19/20 24 08/20/2024 COMP. METAB OLIC PANEL (14) bilirubin, total 0.3 mg/dL 0.0-1. 2 normal Not Available [facility] ([facility]) [address] [place], [address], 08/20/2024 06:20:25 08/19/20 24 08/20/2024 COMP. METAB OLIC PANEL (14) alkaline phosphatase 125 IU/L 44-121 above high normal Not Available [facility] ([facility]) [address] [place], [address], 08/20/2024 06:20:25 08/19/20 24 08/20/2024 COMP. METAB OLIC PANEL (14) AST (SGOT) 28 IU/L 0-40 normal Not Available [facility] ([facility]) [address] [place], [address], 08/20/2024 06:20:25 08/19/20 24 08/20/2024 COMP. METAB OLIC PANEL (14) ALT (SGPT) 29 IU/L 0-32 normal Not Available [facility] ([facility]) [address] [place], [address], 08/20/2024 06:20:25 08/19/20 24 08/20/2024 LIPID PANEL cholesterol, total 204 mg/dL 100-19 9 above high normal Not Available [facility] ([facility]) [address] [place], [address], 08/20/2024 06:20:26 08/19/20 24 08/20/2024 LIPID PANEL triglyceride s 57 mg/dL 0-149 normal Not Available [facility] ([facility]) [address] [place], [address], 08/20/2024 06:20:26 08/19/20 24 08/20/2024 LIPID PANEL HDL cholesterol 97 mg/dL >39 normal Not Available [facility]) [address] [place], [address], 08/20/2024 06:20:26 08/19/20 24 08/20/2024 LIPID PANEL VLDL cholesterol antonio 10 mg/dL 5-40 Not Available [facility] ([facility]) [address] [facility] [place], [address], 08/20/2024 06:20:26 08/19/20 24 08/20/2024 LIPID PANEL LDL chol calc ([facility]) 97 mg/dL 0-99 Not Available [facility]) [address] [facility] [address], [place], [address], 08/20/2024 06:20:26 08/19/20 24 08/20/2024 LIPID PANEL LDL calc comment: PERFECT BINDER OPERATOR Not Available [facility] ([facility]) [address] [facility] [address], [place], [address], 08/20/2024 06:20:26 08/19/20 24 08/20/2024 HEMOG LOBIN A1C hemoglobin A1C 7.5 % 4.8-5. 6 above high normal Predi abete s: 5.7 - 6.4 Diabe dick: >6.4 Glyce nette contr ol for adult s with diabe dick: <7.0 Not Available [facility] ([facility]) [address] [facility] [address], [place], [address], 08/20/2024 06:20:27 08/19/20 24 08/20/2024 MAGNE SIUM magnesium 2.2 mg/dL 1.6-2. 3 normal Not Available [facility] ([facility]) [address] [place], [address], 08/20/2024 06:20:28 02/16/2002/22/2025 TOXAS SURE SELEC T 13 summary report (summary) FINAL ===== ===== ===== ===== ===== ===== ===== ===== ===== ===== ===== ===== ===== === TOXAS SURE SELEC T 13 ===== ===== ===== ===== ===== ===== ===== ===== ===== ===== ===== ===== ===== === Test Resul t Flag Units Drug Prese nt Alpra zolam 178 ng/mg creat Alpha -hydr oxyal prazo alcala 634 ng/mg creat Sourc e of alpra zolam is a sched uled presc ripti on medic ation . Alpha -hydr oxyal prazo alcala is an expec victoria metab olite of alpra zolam . Gabap entin PRESE NT Lamot rigin e PRESE NT ===== ===== ===== ===== ===== ===== ===== ===== ===== ===== ===== ===== ===== === Test Resul t Flag Units Ref Range Creat inine 68 mg/dL >=20 ===== ===== ===== ===== ===== ===== ===== ===== ===== ===== ===== ===== ===== === Decla red Medic ation s: Medic ation list was not provi ded. ===== ===== ===== ===== ===== ===== ===== ===== ===== ===== ===== ===== ===== === For clini antonio consu ltati on, pleas e call . ===== ===== ===== ===== ===== ===== ===== ===== ===== ===== ===== ===== ===== === Not Available [facility] ([facility]) [address] [facility] [address], [place], [address], 02/22/2025 15:20:54 02/16/20 25 02/22/2025 TOXAS SURE SELEC T 13 pdf . Not Available [facility] ([facility]) [address] [facility] [address], [place], [address], 02/22/2025 15:20:54 02/16/20 25 02/16/2025 CBC WITH DIFFE RENTI AL/PL ATELE T WBC 7.9 x10e3 /uL 3.4-10 .8 normal Not Available [facility] ([facility]) [address] [facility] [address], [place], [address], 02/22/2025 15:20:56 02/16/20 25 02/16/2025 CBC WITH DIFFE RENTI AL/PL ATELE T RBC 4.59 x10e6 /uL 3.77-5 .28 normal Not Available [facility] ([facility]) [address] [place], [address], 02/22/2025 15:20:56 02/16/20 25 02/16/2025 CBC WITH DIFFE RENTI AL/PL ATELE T hemoglobin 15.0 g/dL 11.1-1 5.9 normal Not Available [facility] ([facility]) [address] [place], [address], 02/22/2025 15:20:56 02/16/20 25 02/16/2025 CBC WITH DIFFE RENTI AL/PL ATELE T hematocrit 46.6 % 34.0-4 6.6 normal Not Available [facility] ([facility]) [address] [place], [address], 02/22/2025 15:20:56 02/16/20 25 02/16/2025 CBC WITH DIFFE RENTI AL/PL ATELE T MCV 102 fL 79-97 above high normal Not Available [facility] ([facility]) [address] [place], [address], 02/22/2025 15:20:56 02/16/20 25 02/16/2025 CBC WITH DIFFE RENTI AL/PL ATELE T MCH 32.7 pg 26.6-3 3.0 normal Not Available [facility] ([facility]) [address] [place], [address], 02/22/2025 15:20:56 02/16/20 25 02/16/2025 CBC WITH DIFFE RENTI AL/PL ATELE T MCHC 32.2 g/dL 31.5-3 5.7 normal Not Available [facility] ([facility]) [address] [place], [address], 02/22/2025 15:20:56 02/16/20 25 02/16/2025 CBC WITH DIFFE RENTI AL/PL ATELE T RDW 12.7 % 11.7-1 5.4 Not Available [facility] ([facility]) [address] [place], [address], 02/22/2025 15:20:56 02/16/20 25 02/16/2025 CBC WITH DIFFE RENTI AL/PL ATELE T platelets 196 x10e3 /uL 150-45 0 normal Not Available [facility] ([facility]) [address] [place], [address], 02/22/2025 15:20:56 02/16/20 25 02/16/2025 CBC WITH DIFFE RENTI AL/PL ATELE T neutrophils 39 % not estab. normal Not Available [facility] ([facility]) [address] [place], [address], 02/22/2025 15:20:56 02/16/20 25 02/16/2025 CBC WITH DIFFE RENTI AL/PL ATELE T lymphs 52 % not estab. normal Not Available [facility] ([facility]) [address] [place], [address], 02/22/2025 15:20:56 02/16/20 25 02/16/2025 CBC WITH DIFFE RENTI AL/PL ATELE T monocytes 5 % not estab. normal Not Available [facility] ([facility]) [address] [place], [address], 02/22/2025 15:20:56 02/16/20 25 02/16/2025 CBC WITH DIFFE RENTI AL/PL ATELE T eos 3 % not estab. normal Not Available [facility] ([facility]) [address] [place], [address], 02/22/2025 15:20:56 02/16/20 25 02/16/2025 CBC WITH DIFFE RENTI AL/PL ATELE T basos 1 % not estab. normal Not Available [facility] ([facility]) [address] [facility], [place], [address], 02/22/2025 15:20:56 02/16/20 25 02/16/2025 CBC WITH DIFFE RENTI AL/PL ATELE T immature cells PERFECT BINDER OPERATOR Not Available [facility] ([facility]) [address] [place], [address], 02/22/2025 15:20:56 02/16/20 25 02/16/2025 CBC WITH DIFFE RENTI AL/PL ATELE T neutrophils (absolute) 3.0 x10e3 /uL 1.4-7. 0 normal Not Available [facility] ([facility]) [address] [place], [address], 02/22/2025 15:20:56 02/16/20 25 02/16/2025 CBC WITH DIFFE RENTI AL/PL ATELE T lymphs (absolute) 4.1 x10e3 /uL 0.7-3. 1 above high normal Not Available [facility] ([facility]) [address] [place], [address], 02/22/2025 15:20:56 02/16/20 25 02/16/2025 CBC WITH DIFFE RENTI AL/PL ATELE T monocytes(ab solute) 0.4 x10e3 /uL 0.1-0. 9 normal Not Available [facility] ([facility]) [address] [place], [address], 02/22/2025 15:20:56 02/16/20 25 02/16/2025 CBC WITH DIFFE RENTI AL/PL ATELE T eos (absolute) 0.2 x10e3 /uL 0.0-0. 4 normal Not Available [facility] ([facility]) [address] [facility], [place], [address], 02/22/2025 15:20:56 02/16/20 25 02/16/2025 CBC WITH DIFFE RENTI AL/PL ATELE T baso (absolute) 0.1 x10e3 /uL 0.0-0. 2 normal Not Available [facility] ([facility]) [address] [place], [address], 02/22/2025 15:20:56 02/16/20 25 02/16/2025 CBC WITH DIFFE RENTI AL/PL ATELE T immature granulocytes 0 % not estab. Not Available [facility] ([facility]) [address] [place], [address], 02/22/2025 15:20:56 02/16/20 25 02/16/2025 CBC WITH DIFFE RENTI AL/PL ATELE T immature grans (abs) 0.0 x10e3 /uL 0.0-0. 1 Not Available [facility] ([facility]) [address] [place], [address], 02/22/2025 15:20:56 02/16/20 25 02/16/2025 CBC WITH DIFFE RENTI AL/PL ATELE T NRBC PERFECT [employer]ER OPERATOR Not Available [facility] ([facility]) [address] [place], [address], 02/22/2025 15:20:56 02/16/20 25 02/16/2025 CBC WITH DIFFE RENTI AL/PL EDI T hematology comments: PERFECT BINDER OPERATOR Not Available [facility] ([facility]) [address] [place], [address], 02/22/2025 15:20:56 02/16/20 25 02/16/2025 COMP. METAB OLIC PANEL (14) glucose 148 mg/dL 70-99 above high normal Not Available [facility] ([facility]) [address] [place], [address], 02/22/2025 15:20:57 02/16/20 25 02/16/2025 COMP. METAB OLIC PANEL (14) BUN 17 mg/dL 8-27 normal Not Available [facility] ([facility]) [address] [place], [address], 02/22/2025 15:20:57 02/16/20 25 02/16/2025 COMP. METAB OLIC PANEL (14) creatinine 0.98 mg/dL 0.57-1 .00 normal Not Available [facility] ([facility]) [address] [place], [address], 02/22/2025 15:20:57 02/16/20 25 02/16/2025 COMP. METAB OLIC PANEL (14) eGFR 64 mL/mi n/1.7 3 >59 normal Not Available [facility] ([facility]) [address] [place], [address], 02/22/2025 15:20:57 02/16/20 25 02/16/2025 COMP. METAB OLIC PANEL (14) BUN/creatini ne ratio 17 12-28 normal Not Available [facility] ([facility]) [address] [place], [address], 02/22/2025 15:20:57 02/16/20 25 02/16/2025 COMP. METAB OLIC PANEL (14) sodium 142 mmol/ L 134-14 4 normal Not Available [facility] ([facility]) [address] [place], [address], 02/22/2025 15:20:57 02/16/20 25 02/16/2025 COMP. METAB OLIC PANEL (14) potassium 4.3 mmol/ L 3.5-5. 2 normal Not Available [facility] ([facility]) [address] [place], [address], 02/22/2025 15:20:57 02/16/20 25 02/16/2025 COMP. METAB OLIC PANEL (14) chloride 104 mmol/ L 96-106 normal Not Available [facility] ([facility]) [address] [place], [address], 02/22/2025 15:20:57 02/16/20 25 02/16/2025 COMP. METAB OLIC PANEL (14) carbon dioxide, total 26 mmol/ L 20-29 normal Not Available [facility] ([facility]) [address] [place], [address], 02/22/2025 15:20:57 02/16/20 25 02/16/2025 COMP. METAB OLIC PANEL (14) calcium 10.5 mg/dL 8.7-10 .3 above high normal Not Available [facility] ([facility]) [address] [place], [address], 02/22/2025 15:20:57 02/16/20 25 02/16/2025 COMP. METAB OLIC PANEL (14) protein, total 6.3 g/dL 6.0-8. 5 normal Not Available [facility] ([facility]) [address] [place], [address], 02/22/2025 15:20:57 02/16/20 25 02/16/2025 COMP. METAB OLIC PANEL (14) albumin 4.4 g/dL 3.9-4. 9 normal Not Available [facility] ([facility]) [address] [place], [address], 02/22/2025 15:20:57 02/16/20 25 02/16/2025 COMP. METAB OLIC PANEL (14) globulin, total 1.9 g/dL 1.5-4. 5 Not Available [facility] ([facility]) [address] [place], [address], 02/22/2025 15:20:57 02/16/20 25 02/16/2025 COMP. METAB OLIC PANEL (14) bilirubin, total 0.2 mg/dL 0.0-1. 2 normal Not Available [facility] ([facility]) [address] [place], [address], 02/22/2025 15:20:57 02/16/20 25 02/16/2025 COMP. METAB OLIC PANEL (14) alkaline phosphatase 123 IU/L 44-121 above high normal Not Available [facility] ([facility]) [address] [place], [address], 02/22/2025 15:20:57 02/16/20 25 02/16/2025 COMP. METAB OLIC PANEL (14) AST (SGOT) 15 IU/L 0-40 normal Not Available [facility] ([facility]) [address] [place], [address], 02/22/2025 15:20:57 02/16/20 25 02/16/2025 COMP. METAB OLIC PANEL (14) ALT (SGPT) 18 IU/L 0-32 normal Not Available [facility] ([facility]) [address] [place], [address], 02/22/2025 15:20:57 02/16/20 25 02/16/2025 LIPID PANEL cholesterol, total 198 mg/dL 100-19 9 normal Not Available [facility] ([facility]) [address] [place], [address], 02/22/2025 15:20:59 02/16/20 25 02/16/2025 LIPID PANEL triglyceride s 44 mg/dL 0-149 normal Not Available [facility] ([facility]) [address] [place], [address], 02/22/2025 15:20:59 02/16/20 25 02/16/2025 LIPID PANEL HDL cholesterol 83 mg/dL >39 normal Not Available [facility] ([facility]) [address] [place], [address], 02/22/2025 15:20:59 02/16/20 25 02/16/2025 LIPID PANEL VLDL cholesterol antonio 8 mg/dL 5-40 Not Available [facility] ([facility]) [address] [place], [address], 02/22/2025 15:20:59 02/16/20 25 02/16/2025 LIPID PANEL LDL chol calc ([facility]) 107 mg/dL 0-99 above high normal Not Available [facility] ([facility]) [address] [place], [address], 02/22/2025 15:20:59 02/16/20 25 02/16/2025 LIPID PANEL LDL calc 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 normal Not Available [facility] ([facility]) [address] [place], [address], 02/22/2025 15:21:00 02/16/20 25 02/16/2025 ALBUM IN/CR EAT RATIO , RANDO M UR albumin, urine 4.1 ug/mL not estab. Not Available [facility] ([facility]) [address] [place], [address], 02/22/2025 15:21:00 02/16/20 25 02/16/2025 ALBUM IN/CR EAT RATIO , CHAMP Herrera UR alb/creat ratio 6 mg/g_ creat 0-29 Lynn l: 0 - 29 Moder ately incre ased: 30 - 300 Sever ken incre ased: >300 Not Available [facility] ([facility]) [address] [place], [address], 02/22/2025 15:21:00 02/16/20 25 02/16/2025 VITAM IN B12 AND FOLAT E vitamin B12 1775 pg/mL 232-12 45 above high normal Not Available [facility] ([facility]) [address] [place], [address], 02/22/2025 15:21:02 02/16/20 25 02/16/2025 VITAM IN B12 AND FOLAT E folate (folic acid), serum 6.3 NG/mL >3.0 normal A serum folat e nica ntrat ion of less than 3.1 ng/mL is consi dered to repre sent clini antonio defic iency . Not Available [facility] ([facility]) [address] [place], [address], 02/22/2025 15:21:02 02/16/20 25 02/16/2025 HEMOG LOBIN A1C hemoglobin A1C 7.3 % 4.8-5. 6 above high normal Predi abete s: 5.7 - 6.4 Diabe dick: >6.4 Glyce nette contr ol for adult s with diabe dick: <7.0 Not Available [facility] ([facility]) [address] [place], [address], 02/22/2025 15:21:03 02/16/20 25 02/16/2025 MAGNE SIUM magnesium 2.4 mg/dL 1.6-2. 3 above high normal Not Available [facility] ([facility]) [address] [place], [address], 02/22/2025 15:21:04 06/28/20 24 06/25/2024 LDCT, chest , for lung kaylee foster [facility] Name: AMANDA VILLALBA [address] [employer] Phys: Lien urena MD, [place] [address] : 1959 Age: 63 Sex: F Acct: [id number] Loc: G.CT PHONE #: Exam Date: 2023 Status : DEP CLI FAX #: Rad# [id number] Unit# [id number] Admit Date: 2023 EXAMS: CPT CODE: [id number] 969 CT CHEST LDCT LUNG SCREEN G0297 LUNG CANCER SCREEN ING CHEST CT WITHOU T CONTRA ST, 024: CLINIC AL HISTOR Y: Asympt omatic 63-yea r-old female with 30-pac k-year histor y of tobacc o use presen ts for lung cancer screen ing. The patien t is a curren t smoker and has a writte n order from a clinic kelli obtain ed during a lung cancer screen ing guerda galvan and shared decisi on-jonny ing visit. COMPAR ALEX: Low-do se chest CT, 023 and 022 TECHNI QUE: Low-do se protoc ol CT (LDCT) images of the chest are obtain ed from the lung apices to the lung bases withou t intrav enous contra st for lung cancer screen ing. [employer]trland's Auto mA automa victoria exposu re contro l was utiliz ed for radiat ion dose reduct ion. Paiten t Height : 68 inches Patien t Weight : 150 pounds CTDI vol: 1.88 mGy DLP: 71.21 mGy*cm FINDIN GS: Heart is normal in size with mild fulton ry artery calcif icatio ns. The thorac ic aorta is normal in calibe r. There are granul omatou s calcif icatio ns in the right hilum withou t pathol ogic intrat horaci c lympha denopa thy. The thyroi d gland is unrema rkable . There is mild centri lobula r emphys mikhail. There is a 4 mm right lower lobe nodule on image 98 and a 4 mm right lower lobe nodule on image 102, unchan ged. There is no new pulmon rosanna nodule . There are calcif ied granul omas bilate rally. There are stable linear areas of atelec tasis versus fibros is within the leadership development instructor ior costop hrenic gutter s. There is no pleura l fluid and the airway s are patent Granul omatou s calcif icatio ns involv e the spleen . The visual ized upper abdomi nal struct ures are otherw ise unrema rkable . There is mild multil evel degene rative disc diseas e of the thorac ic spine IMPRES GIA: 1. Mild emphys mikhail with a couple stable 4 mm right lower lobe nodule s. There is no new pulmon rosanna nodule and recomm end annual low-do se screen ing CT LRCAT2 - BENIGN APPEAR ANCE OR BEHAVI OR LR1YR - ANNUAL SCREEN ING IN 12 MONTHS *Recom mendat ions for follow up/man agemen t of pulmon rosanna nodule s will PAGE 1 Signed Report (LE NUED) [facility] Name: AMANDA VILLALBA [email or web address] Phys: Lien urena MD, [place] [facility] [place] [address] : 1959 Age: 63 Sex: F Acct: [id number] Loc: G.CT PHONE #: Exam Date: 2023 Status : DEP CLI FAX #: [phone] Rad# [id number] Unit# [id number] Admit Date: 2023 EXAMS: CPT CODE: [id number] CT CHEST LDCT LUNG SCREEN G0297 be based on the [employer] criter ia Electr onical ly Signed by KEVIN NGUYEN MD on 2023 at 1331 Report ed and signed by: KEVIN NGUYEN MD CC: [place] urena MD Dictat ed Date/T rafael: 2023 (1331) Techno logist : TOMMIE HOLM Transc ribed Date/T rafael: 2023 (1331) Transc riptio nist: DR.HAG RUEPSH courtney Signat ure Date/T rafael: 2023 (1331) Printe d Date/T rafael: 2023 (2068) BATCH NO: N/A PAGE 2 Signed Report CC'ed Logic: Orderi ng Provid er: LIEN BARON Attend ing Provid er: LIEN BARON Referr ing Provid er: LIEN BARON Consul ting Provid er: LIEN BARON [id number] [place] [address] [place], [address], 07/12/2024 08:23:34 07/16/20 24 02/20/2024 - scn dig breas t tomos yn reddy [facility] Name: AMANDA VILLALBA [address] [place] [address] Phys: Lien urena MD, [place] [address] : 1959 Age: 63 Sex: F Acct: [id number] Loc: UNK PHONE #: Exam Date: 2023 Status : DEP CLI FAX #: Rad# [id number] Unit# [id number] Admit Date: 2023 EXAMS: CPT CODE: [id number] 740 SCN DIG BREAST TOMOSY N REDDY 47695 BILATE RAL DIGITA L SCREEN ING MAMMOG MIHAELA WITH CAD AND 3-D TOMOSY NTHESI S, 024: CLINIC AL HISTOR Y: Routin e screen ing. No breast proble ms. 2 patern al aunts with breast carcin fred Correl ation is made with prior mammog graham rojo from 2022 to 018. FINDIN GS: Bilate ral digita l MLO and CC views with CAD and 3-D tomosy nthesi s were perfor med by Isatu Becket t, RT. These demons trate hetero geneou sly dense fibrog landul ar parenc hyma, unchan ged in config uratio n from prior exams. There is no domina nt mass, yodit ectura l distor tion, or suspic ious calcif icatio n, bilate rally. IMPRES GIA: STABLE NEGATI VE MAMMOG GRAHAM. RECOMM END ANNUAL SCREEN ING MAMMOG MIHAELA. CAT1 - CATEGO RY 1, NEGATI VE 1YR - 1 YEAR DISCLA EDWIN: *The patien t with a palpab le abnorm ality, unexpl ained by breast imagin g, should be manage d on clinic al basis by the attend ing physic kelli. *Breas t imagin g has a false negati ve rate of 15%. *The patien t was notifi ed by mail of the result s of this examin ation. *The patien t's inform ation was entere d into a remind er system with a target due date for the next mammog jordana. *The mammog jordana was review ed by a radiol ogist and CAD. Manual ly signed by KEVIN NGUYEN MD Report ed and signed by: KEVIN NGUYEN MD PAGE 1 Signed Report (LE NUED) [facility] Name: AMANDA VILL[facility] [employer] Phys: Lien urena MD, [place] [facility] [place] [address] : 1959 Age: 63 Sex: F Acct: [id number] Loc: UNK PHONE #: Exam Date: 2023 Status : DEP CLI FAX #: Rad# [id number] Unit# [id number] Admit Date: 2023 EXAMS: CPT CODE: [id number] 740 SCN DIG BREAST TOMOSY N REDDY 22640 CC: [place] urena MD Dictat ed Date/T rafael: 2023 (1758) Techno logist : ISATULAVELLE Smith Transc ribed Date/T rafael: 2023 (1758) Transc riptio nist: DR.HAG RUPESH Rivas ed To Signed Date/T rafael/Us er: ( ) Printe d Date/T rafael: 2023 (045) BATCH NO: N/A PAGE 2 Signed Report CC'ed Logic: Orderi ng Provid er: LIEN BARON Attend ing Provid er: LIEN BARON Referr ing Provid er: LIEN BARON Consul ting Provid er: LIEN BARON [email or web address] , [place], [address], 07/19/2024 17:31:38 07/16/20 24 02/20/2024 - scn dig breas t tomos yn reddy [facility] Name: AMANDA VILLALBA [address] [place] [address] Drive Phys: Lien urena MD, [place] [address] : 1959 Age: 63 Sex: F Acct: [id number] Loc: UNK PHONE #: Exam Date: 2023 Status : DEP CLI FAX #: Rad# [id number] Unit# [id number] Admit Date: 2023 EXAMS: CPT CODE: [id number] 740 SCN DIG BREAST TOMOSY N REDDY 94622 BILATE RAL DIGITA L SCREEN ING MAMMOG MIHAELA WITH CAD AND 3-D TOMOSY NTHESI S, 024: CLINIC AL HISTOR Y: Routin e screen ing. No breast proble ms. 2 patern al aunts with breast carcin fred Correl ation is made with prior mammog graham jumana g from 2022 to 018. FINDIN GS: Bilate ral digita l MLO and CC views with CAD and 3-D tomosy nthesi s were perfor med by Isatu smith, RT. These demons trate hetero geneou sly dense fibrog landul ar parenc hyma, unchan ged in config uratio n from prior exams. There is no domina nt mass, yodit ectura l distor tion, or suspic ious calcif icatio n, bilate rally. IMPRES GIA: STABLE NEGATI VE MAMMOG GRAHAM. RECOMM END ANNUAL SCREEN ING MAMMOG MIHAELA. CAT1 - CATEGO RY 1, NEGATI VE 1YR - 1 YEAR DISCLA EDWIN: *The patien t with a palpab le abnorm ality, unexpl ained by breast imagin g, should be manage d on clinic al basis by the attend ing physic kelli. *Breas t imagin g has a false negati ve rate of 15%. *The patien t was notifi ed by mail of the result s of this examin ation. *The patien t's inform ation was entere d into a remind er system with a target due date for the next mammog jordana. *The mammog jordana was review ed by a radiol ogist and CAD. Electr onical ly Signed by KEVIN NGUYEN MD on 2023 at 1759 Report ed and signed by: KEVIN NGUYEN MD PAGE 1 Signed Report (LE NUED) [facility] Name: AMANDA VILLALBA [email or web address] Phys: Lien urena MD, [place] [facility] [place] [address] : 1959 Age: 63 Sex: F Acct: [id number] Loc: UNK PHONE #: Exam Date: 2023 Status : DEP CLI FAX #: Rad# [id number] Unit# [id number] Admit Date: 2023 EXAMS: CPT CODE: [id number] 740 SCN DIG BREAST TOMOSY N REDDY [address]181 CC: [place] urena MD Dictat ed Date/T rafael: 2023 (1758) Techno logist : ISATU Smith Transc ribed Date/T rafael: 2023 (1758) Transc riptio nist: DR.HAG GODDARD Electr onic Signat ure Date/T rafael: 2023 (1758) Printe d Date/T rafael: 2023 (1855) BATCH NO: N/A PAGE 2 Signed Report CC'ed Logic: Orderi ng Provid er: LIEN BARON Attend ing Provid er: LIEN BARON Referr ing Provid er: LIEN BARON Consul ting Provid er: LIEN BARON [email or web address] , [place], [address], 07/19/2024 17:31:38 02/16/20 25 02/14/2025 DEXA, axial skele ton + verte bral fract ure asses ent [facility] Name: AMANDA VILLALBA [address] [place] [address] Drive Phys: Lien urena MD, [place] [address] : 1959 Age: 64 Sex: F Acct: [id number] Loc: G.RAD PHONE #: Exam Date: 2024 Status : DEP CLI FAX #: Rad# [id number] Unit# [id number] Admit Date: 2024 EXAMS: CPT CODE: [id number] DEXA BONE DENSIT Y WITH VFA 68091 EXAMIN ATION: DUAL X-RAY ABSORP TIOMET RY (DXA) FOR BONE MINERA L DENSIT Y. CLINIC AL INDICA TION: 64 years old, Female . Postme nopaus al. Z78.0. TECHNI QUE: An axial (e.g., hips, spine) and/or append icular (e.g., radius ) exam was perfor med, as approp riate, using Letsgofordinnerar Prodig y densit ometer . Images are obtain ed for bone minera l densit y measur ement and are not obtain ed for diagno stic purpos es. [id number] 2 Verteb ral fractu re assess ment was perfor med. COMPAR ALEX: 2021. FINDIN GS: Scan qualit y: Good. LUMBAR SPINE (L1-L4 ): BMD (in g/cm*2 ): 1.082. T-scor e: -0.9. Z-scor e: 0.6. No signif icant rate of change from previo us exam. LEFT FEMORA L NECK: BMD (in g/cm*2 ): 0.771. T-scor e: -1.9. Z-scor e: -0.5. No signif icant rate of change from previo us exam. RIGHT FEMORA L NECK: BMD (in g/cm*2 ): 0.746. T-scor e: -2.1. Z-scor e: -0.7. No signif icant rate of change from previo us exam. FRAX 10-YEA R PROBAB ILITY OF FRACTU RE: 10-yea r fractu re risk is perfor med using the [facility] FRAX calcul ator based on patien t-repo rted risk factor s. Major osteop orotic fractu re: 32.1%. Hip fractu re: 5.3%. VERTEB RAL FRACTU RE ASSESS MENT: Verteb ral fractu re assess ment from T5-L4 is perfor med using [employer] visual semi-q uantit ative method . No fractu re is identi fied. PAGE 1 Signed Report (LE NUED) [facility] Name: AMANDA VILLALBA [address] [place], [place] [address]a [facility] [employer] Phys: Lien urena MD, [place] [address] : 1959 Age: 64 Sex: F Acct: [id number] Loc: AlhajiRAD PHONE #: Exam Date: 2024 Status : DEP CLI FAX #: Rad# [id number] Unit# [id number] Admit Date: 2024 EXAMS: CPT CODE: [id number] DEXA BONE DENSIT Y WITH VFA 37077 IMPRES GIA: Osteop enia of the hips based on BMD. World Health Organi zation criter ia for BMD impres gia classi fy patien ts as: - Normal (T-sco re at or above -1.0). - Osteop enia (T-sco re betwee n -1.0 and -2.5). - Osteop orosis (T-sco re at or below -2.5). Per the Bone Health and Osteop orosis Founda tion the FRAX tool is most useful in patien ts with low femora l neck bone minera l densit y (osteo penia) . FRAX is calcul ated per reques t. RECOMM ENDATI ONS: 1. All patien ts should optimi ze their calciu m and vitami n D intake . 2. Consid er FDA-ap proved medica l therap ies in postme nopaus al women and men aged 50 years and older, based on the follow ing: - A hip or verteb ral (clini antonio or morpho metric ) fractu re. - T-scor e less than or equal to -2.5 at the femora l neck or spine after approp riate evalua tion to exclud e second rosanna causes . - Low bone densit y (T-sco re betwee n -1.0 and -2.5 at the femora l neck or spine) and a 10-yea r probab ility of a hip fractu re greate r than or equal to 3% or a 10-yea r probab ility of a major osteop orosis -relat ed fractu re greate r than or equal to 20% based on FRAX calcul ation. - Clinic kelli judgme nt and/or patien t prefer ences may indica te treatm ent for people with 10-yea r fractu re probab ilitie s above or below these levels . - Fazal cody on treatm ent can be found at the [facility] al Osteop orosis Founda tion's websit e boneso urce.o rg. 3. Patien ts with diagno sis of osteop orosis or at high risk for fractu re should have regula r bone minera l densit y tests. For patien ts eligib le for Medica re, routin e testin g is allowe d once every 2 years. The testin g freque ncy can be increa sed to one year for patien ts who have rapidl y progre ssing diseas e, those who are receiv ing or discon tinuin g medica l therap y to restor e bone mass or have additi onal risk factor s. Electr onical ly signed by: Poncho Garibay MD 2024 03:57 PM EDT RP Workst ation: [id number] PAGE 2 Signed Report (LE NUAMANDA) [facility] Name: AMANDA VILLALBA [address] [place], [place] [address]a [facility] [address] Phys: L[place] u[place], [place] [address] : 1959 Age: 64 Sex: F Acct: [id number] Loc: G.RAD PHONE #: Exam Date: 2024 Status : DEP CLI FAX #: [phone] Rad# [id number] Unit# [id number] Admit Date: 2024 EXAMS: CPT CODE: [id number] 299 DEXA BONE DENSIT Y WITH VFA 14941 Electr onical ly Signed by PONCHO GARIBAY on 2024 at 1908 Report ed and signed by: Delfin GARIBAY CC: [place] urena MD Dictat ed Date/T rafael: 2024 (1907) Techno logist : NOAH Caldwell RT(R)( CT) Transc ribed Date/T rafael: 2024 (1907) Transc riptio nist: SHE Electr onic Signat ure Date/T rafael: 2024 (1907) Printe d Date/T rafael: 2024 (1599) BATCH NO: N/A PAGE 3 Signed Report CC'ed Logic: Orderi ng Provid er: LIEN BARON Attend ing Provid er: LIEN BARON Referr ing Provid er: LIEN BARON Consul ting Provid er: LIEN brown[address] [place] [address] [place], [address], 02/15/2025 17:14:31 03/28/20 25 03/28/2025 MAMMO , scree cristian, digit al, bilat eral [facility] Name: AMANDA VILLALBA [address] [employer] Phys: Lien urena MD, [place] [address] : 1959 Age: 64 Sex: F Acct: [id number] Loc: G.MAMM PHONE #: [phone] Exam Date: 2024 Status : REG CLI FAX #: Rad# [id number] Unit# [id number] Admit Date: 2024 EXAMS: CPT CODE: [id number] 052 SCN DIG BREAST TOMOSY N REDDY 45834 EXAMIN ATION: SCN DIG BREAST TOMOSY N REDDY HISTOR Y: SCREEN ING COMPAR ALEX:P riors dating back to 2020 TECHNI QUE: CC and MLO with 3-D tomosy nthesi s and synthe sized 2-D. The images were interp reted with the aid of Comput er Aided Detect ion System . FINDIN GS: COMPOS ITION: The breast s are extrem ken dense, which lowers the sensit ivity of mammog mihaela. There is a group of calcif icatio n in the left breast 6:00 axis. Magnif icatio n views recomm ended. No suspic ious mass, yodit ectura l distor tion, or suspic ious microc alcifi cation s in the right. IMPRES GIA: Calcif icatio n in the left breast requir es furthe r assess ment with diagno stic mammog jordana and if needed ultras ound. No suspic ious abnorm ality in the right breast . BIRADS : Assess ment: ACR Catego ry: BI-RAD S 0, Incomp lete; need additi onal imagin g evalua tion. Recomm endati on: Additi onal imagin g. Electr onical ly signed by: Magdi Valenzuela MD 2024 08:28 PM EDT RP Workst ation: [id number] Electr onical ly Signed by MAGDI VALENZUELA on 2024 at 2023 Report ed and signed by: MAGDI VALENZUELA CC: [place] urena MD Dictat ed Date/T rafael: 2024 (2023) Techno logist : JAIDA ARGELIA RT(R)( M)(CT) (MR) Transc ribed Date/T rafael: 2024 (2023) Transc riptio nist: DR.NAS DENIZ Marrero onic Signat ure Date/T rafael: 2024 (2023) Printe d Date/T rafael: 2024 (2030) BATCH NO: N/A PAGE 1 Signed Report CC'ed Logic: Orderi ng Provid er: LIEN BARON Attend ing Provid er: LIEN BARON Referr ing Provid er: LIEN BARON Consul ting Provid er: LIEN BARON [address], [address], 03/29/2025 14:18:06 Result Notes Documentation Provider Name and Address Organization Details Recorded Time Ldct, Chest, For Lung Cancer Screening : [facility] Name: AMANDA PERAZA Mai [address] [place] [address] Phys: Nehemiah KRAFT, [place] [id number] : 1960 Age: 63 Sex: F Acct: [id number] Loc: AlhajiCT PHONE #: Exam Date: 06/25/2024 Status: DEP CLI FAX #: Rad# [id number] Unit# [id number] Admit Date: 06/25/2024 EXAMS: CPT CODE: [id number] CT CHEST LDCT LUNG SCREEN G0297 LUNG CANCER SCREENING CHEST CT WITHOUT CONTRAST, 06/25/2024: CLINICAL HISTORY: Asymptomatic 63-year-old female with 98-ahgc-hnny history of tobacco use presents for lung cancer screening. The patient is a current smoker and has a written order from a clinician obtained during a lung cancer screening counseling and shared decision-making visit. COMPARISON: Low-dose chest CT, 06/10/2023 and 06/03/2022 TECHNIQUE: Low-dose protocol CT (LDCT) images of the chest are obtained from the lung apices to the lung bases without intravenous contrast for lung cancer screening. [employer]trland's Auto mA automated exposure control was utilized for radiation dose reduction. Paitent Height: 68 inches Patient Weight: 150 pounds CTDI vol: 1.88 mGy DLP: 71.21 mGy*cm FINDINGS: Heart is normal in size with mild coronary artery calcifications. The thoracic aorta is normal in caliber. There are granulomatous calcifications in the right hilum without pathologic intrathoracic lymphadenopathy. The thyroid gland is unremarkable. There is mild centrilobular emphysema. There is a 4 mm right lower lobe nodule on image 98 and a 4 mm right lower lobe nodule on image 102, unchanged. There is no new pulmonary nodule. There are calcified granulomas bilaterally. There are stable linear areas of atelectasis versus fibrosis within the posterior costophrenic gutters. There is no pleural fluid and the airways are patent Granulomatous calcifications involve the spleen. The visualized upper abdominal structures are otherwise unremarkable. There is mild multilevel degenerative disc disease of the thoracic spine IMPRESSION: 1. Mild emphysema with a couple stable 4 mm right lower lobe nodules. There is no new pulmonary nodule and recommend annual low-dose screening CT LRCAT2 - BENIGN APPEARANCE OR BEHAVIOR LR1YR - ANNUAL SCREENING IN 12 MONTHS *Recommendations for follow up/management of pulmonary nodules will PAGE 1 Signed Report (CONTINUED) [facility] Ce Name: AMANDA PERAZA [address] [place] [address] Phys: [place] [address] : 1960 Age: 63 Sex: F Acct: [id number] Loc: G.CT PHONE #: Exam Date: 06/25/2024 Status: DEP CLI FAX #: Rad# [id number] Unit# [id number] Admit Date: 06/25/2024 EXAMS: CPT CODE: [id number] CT CHEST LDCT LUNG SCREEN G0297 be based on the Fleischner Society criteria at 1331 Reported and signed by: ABHINAV SILVERMAN MD CC: Tod Guerra MD Dictated Date/Time: 06/25/2024 (9951) Technologist: TOMMIE HOLM Transcribed Date/Time: 06/25/2024 (0071) Visual Manager: Electronic Signature Date/Time: 06/25/2024 (5861) Printed Date/Time: 06/28/2024 (9117) BATCH NO: N/A PAGE 2 Signed Report CC'ed Logic: Ordering Provider: NEHEMIAH BARON Attending Provider: NEHEMIAH BARON Referring Provider: NEHEMIAH BARON Consulting Provider: NEHEMIAH Espinosa [facility], [facility] 07/12/2024 08:23:34 Dexa, Axial Skeleton + Vertebral Fracture Assessment : [facility] Ce Name: AMANDA PERAZA [employer] Phys: Nehemiah KRAFT, Tod [place] [phone] : 1960 Age: 64 Sex: F Acct: [id number] Loc: KEENAN PHONE #: Exam Date: 02/14/2025 Status: DEP CLI FAX #: Rad# [id number] Unit# [id number] Admit Date: 02/14/2025 EXAMS: CPT CODE: [id number] DEXA BONE DENSITY WITH VFA 04697 EXAMINATION: DUAL X-RAY ABSORPTIOMETRY (DXA) FOR BONE MINERAL DENSITY. CLINICAL INDICATION: 64 years old, Female. Postmenopausal. Z78.0. TECHNIQUE: An axial (e.g., hips, spine) and/or appendicular (e.g., radius) exam was performed, as appropriate, using [employer] densitometer. Images are obtained for bone mineral density measurement and are not obtained for diagnostic purposes. [id number] Vertebral fracture assessment was performed. COMPARISON: 08/12/2022. FINDINGS: Scan quality: Good. LUMBAR SPINE (L1-L4): BMD (in g/cm*2): 1.082. T-score: -0.9. Z-score: 0.6. No significant rate of change from previous exam. LEFT FEMORAL NECK: BMD (in g/cm*2): 0.771. T-score: -1.9. Z-score: -0.5. No significant rate of change from previous exam. RIGHT FEMORAL NECK: BMD (in g/cm*2): 0.746. T-score: -2.1. Z-score: -0.7. No significant rate of change from previous exam. FRAX 10-YEAR PROBABILITY OF FRACTURE: 10-year fracture risk is performed using the [employer] FRAX calculator based on patient-reported risk factors. Major osteoporotic fracture: 32.1%. Hip fracture: 5.3%. VERTEBRAL FRACTURE ASSESSMENT: Vertebral fracture assessment from T5-L4 is performed using [employer] visual semi-quantitative method. No fracture is identified. PAGE 1 Signed Report (CONTINUED) [facility] Ce Name: AMANDA PERAZA [facility] Phys: Tod Guerra MD [place] [phone] : 1960 Age: 64 Sex: F Acct: [id number] Loc: KEENAN PHONE #: Exam Date: 02/14/2025 Status: DEP CLI FAX #: Rad# [id number] Unit# [id number] Admit Date: 02/14/2025 EXAMS: CPT CODE: [id number] DEXA BONE DENSITY WITH VFA 72747 IMPRESSION: Osteopenia of the hips based on BMD. World Health Organization criteria for BMD impression classify patients as: - Normal (T-score at or above -1.0). - Osteopenia (T-score between -1.0 and -2.5). - Osteoporosis (T-score at or below -2.5). Per the Bone Health and Osteoporosis Foundation the FRAX tool is most useful in patients with low femoral neck bone mineral density (osteopenia). FRAX is calculated per request. RECOMMENDATIONS: 1. All patients should optimize their calcium and vitamin D intake. 2. Consider FDA-approved medical therapies in postmenopausal women and men aged 50 years and older, based on the following: - A hip or vertebral (clinical or morphometric) fracture. - T-score less than or equal to -2.5 at the femoral neck or spine after appropriate evaluation to exclude secondary causes. - Low bone density (T-score between -1.0 and -2.5 at the femoral neck or spine) and a 10-year probability of a hip fracture greater than or equal to 3% or a 10-year probability of a major osteoporosis-related fracture greater than or equal to 20% based on FRAX calculation. - Clinician judgment and/or patient preferences may indicate treatment for people with 10-year fracture probabilities above or below these levels. - Further guidance on treatment can be found at the National Osteoporosis Foundation's website bonesource.org. 3. Patients with diagnosis of osteoporosis or at high risk for fracture should have regular bone mineral density tests. For patients eligible for Medicare, routine testing is allowed once every 2 years. The testing frequency can be increased to one year for patients who have rapidly progressing disease, those who are receiving or discontinuing medical therapy to restore bone mass or have additional risk factors. Electronically signed by: Ayse Garibay MD 02/15/2025 03:57 PM EDT PAGE 2 Signed Report (CONTINUED) [facility] Ce Name: AMANDA PERAZA [address] [place] [address] Phys: [place] [address] : 1960 Age: 64 Sex: F Acct: [id number] Loc: G.RAD PHONE #: Exam Date: 02/14/2025 Status: DEP CLI FAX #: Rad# [id number] Unit# [id number] Admit Date: 02/14/2025 EXAMS: CPT CODE: [id number] DEXA BONE DENSITY WITH VFA 01981 at 1908 Reported and signed by: AYSE GARIBAY CC: Tod Guerra MD Dictated Date/Time: 02/14/2025 (1907) Technologist: NOAH PAYTON RT(R)(CT) Transcribed Date/Time: 02/14/2025 (1907) Visual Manager: Electronic Signature Date/Time: 02/14/2025 (1907) Printed Date/Time: 02/15/2025 (1599) BATCH NO: N/A PAGE 3 Signed Report CC'ed Logic: Ordering Provider: NEHEMIAH BARON Attending Provider: NEHEMIAH BARON Referring Provider: NEHEMIAH BARON Consulting Provider: NEHEMIAH Espinosa [facility], [place] - [facility] - [facility] 02/15/2025 17:14:31 Mammo, Screening, Digital, Bilateral : [facility] Ce Name: AMANDA PERAZA [facility] Phys: Tod Guerra MD [place] [phone] : 1960 Age: 64 Sex: F Acct: [id number] Loc: IRA PHONE #: Exam Date: 03/28/2025 Status: REG CLI FAX #: Rad# [id number] Unit# [id number] Admit Date: 03/28/2025 EXAMS: CPT CODE: [id number] [facility] DIG BREAST TOMOSYN REDDY 69459 EXAMINATION: SCN DIG BREAST TOMOSYN REDDY HISTORY: SCREENING COMPARISON:Priors dating back to 2020 TECHNIQUE: CC and MLO with 3-D tomosynthesis and synthesized 2-D. The images were interpreted with the aid of Computer Aided Detection System. FINDINGS: COMPOSITION: The breasts are extremely dense, which lowers the sensitivity of mammography. There is a group of calcification in the left breast 6:00 axis. Magnification views recommended. No suspicious mass, architectural distortion, or suspicious microcalcifications in the right. IMPRESSION: Calcification in the left breast requires further assessment with diagnostic mammogram and if needed ultrasound. No suspicious abnormality in the right breast. BIRADS: Assessment: ACR Category: BI-RADS 0, Incomplete; need additional imaging evaluation. Recommendation: Additional imaging. Electronically signed by: Magdi Valenzuela MD 03/28/2025 08:28 PM EDT at 2023 Reported and signed by: MAGDI VALENZUELA CC: Tod Guerra MD Dictated Date/Time: 03/28/2025 (2023) Technologist: JAIDA STOUT RT(R)(M)(CT)(MR) Transcribed Date/Time: 03/28/2025 (2023) Visual Manager: Electronic Signature Date/Time: 03/28/2025 (2023) Printed Date/Time: 03/28/2025 (2030) BATCH NO: N/A PAGE 1 Signed Report CC'ed Logic: Ordering Provider: NEHEMIAH BARON Attending Provider: NEHEMIAH BARON Referring Provider: NEHEMIAH BARON Consulting Provider: NEHEMIAH BARON Not Available [facility] 03/29/2025 14:18:06 Problems Name Problem SNOMED Code Status Onset Date Resolution Date Notes Provider Name and Address Organization Details Recorded Time 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 abhinav clark null, [place] - [facility] [place] [facility] [place] 2 14:08:28 Essential hypertensio n 57853692 Active 2021 abhinavvinnie clark null, [place] - [facility] [place] & [place] 2 14:09:07 Sleep disorder 49993384 Active 2021 abhinav amber [place], [place] - [facility] [place] 2 14:09:37 Restless legs 07028051 Active 2021 abhinavvinnie clark null, [place] [facility] [place] [facility] [place] 2 14:10:09 Osteoporosi s 01366140 Active 2021 abhinavvinnie clark null, [place] - [facility] [place] [facility] [place] 2 14:10:24 Chronic pain syndrome 503153622 Active Rebecca Chaseer null, [place] - [facility] [place] [facility] [place] 2 15:23:17 Chronic lymphoid leukemia, disease 32847637 Active [address], MD [address] [place] [address],[address], [place], [address], [place] - [facility] [place] [facility] [place] 3 14:48:51 Moderate recurrent major depression 94926698 Active [address], MD [address] [place] [address],[address], [place], [address], [place] [facility] [place] & [place] 3 14:48:50 Chronic kidney disease stage 3A 948390310 Active [address], MD [address] [place] [address],[address], [place], [address], [place] [facility] [place] & [place] 3 14:48:51 Mixed hyperlipide roula 769138819 Active [address], MD [address] [place] [address],[address], [place], [address], [place] [facility] [place] & [place] 3 09:38:41 Adult health examination Active [address], MD [address] [place] [address],[address], [place], [address], [place] [facility] [place] & [place] 3 16:06:13 Advance care planning Active [address], MD [address] [place] [address],[address], [place], [address], [place] [facility] [place] & [place] 3 16:06:15 Standardize d adult depression screening tool completed 2267573781063 07 Active [address], MD [address] [place] [address],[address], [place], [address], [place] [facility] [place] & [place] 3 16:06:17 Problem Notes None recorded. Procedures Surgical History Date Name Laterality Status Provider Name and Address Organization Details Recorded Time 10/13/19 15 Other completed Milady Garza s [place] - [facility] - [place] & [place] 07/02/2023 09:18:07 10/13/19 13 Other completed Milady Garza s [place] - [facility] [place] 07/02/2023 09:18:07 10/13/19 06 operative procedure on knee completed abhinav [place] - [facility] - [place] [facility] [place] 07/10/2022 14:31:21 10/13/19 04 operative procedure on knee completed abhinav clark [place] - [facility] - [place] 07/10/2022 14:31:07 10/13/19 00 Other completed Milady Garza s [place] - [facility] - [place] & [place] 07/02/2023 09:18:07 10/13/19 00 hysterectomy completed abhinav clark [place] - [facility] - [place] & [place] 07/10/2022 14:30:53 10/13/18 80 Other completed Milady GLORIA - [facility] - [place] & [place] 07/02/2023 09:18:07 10/13/18 80 operation on facial joint completed abhinav GLORIA - [facility] - [place] & [place] 07/10/2022 14:30:40 10/13/18 68 Tonsillectomy/Stefania noidectomy completed Milady Mendiola [facility] - [place] & [place] 07/02/2023 09:18:07 10/13/18 68 tonsillectomy completed abhinav Mendiola [facility] - [place] & [place] 07/10/2022 14:30:21 Imaging Results None recorded. Procedure Notes None recorded. Medical Equipment None Reported. Allergies No known drug allergies Medications Name Sig Start Date Stop Date Status Note LastModified by Organization Details LastModified Time magnesium 400mg tablets TAKE 5 TABLETS BY MOUTH EVERY DAY 08/19 completed Not Available Not Available Not Available losartan 50 mg tablet TAKE 2 TABLETS BY MOUTH EVERY DAY 02/26 completed Not Available Not Available Not Available cyclobenza michael 10 mg tablet TAKE 1 TABLET BY MOUTH EVERY DAY AT BEDTIME active Not Available Not Available No t Available furosemide 40 mg tablet TAKE 1 TABLET BY MOUTH TWICE DAILY active Not Available Not Available No t Available potassium chloride ER 10 mEq capsule,ex tended release TAKE 2 CAPSULES BY MOUTH TWICE DAILY active Not Available Not Available No t Available prednisone 10 mg tablet 02/26 completed Not Available Not Available Not Available gabapentin 600 mg tablet TAKE 1 TABLET BY MOUTH TWICE DAILY 02/26 completed Not Available Not Available Not Available lamotrigin e 200 mg tablet TAKE 1 TABLET BY MOUTH TWICE DAILY active Not Available Not Available No t Available ropinirole 1 mg tablet TAKE 1 TABLET BY MOUTH FOUR TIMES DAILY DIRECTED active Not Available Not Available No t Available Neurontin 300 mg capsule Take 1 capsule twice a day by oral route for 30 days. 2024 active Not Available Not Available Not Avai lable Klor-Con 10 mEq tablet,ext ended release Take 2 tablets twice a day by oral route as directed. active Not Available Not Available No t Available Stool Softener 100 mg capsule Take 1 capsule every day by oral route as needed. active OTC Not Available Not Available No t Available pravastati n 40 mg tablet TAKE 1 TABLET BY MOUTH EVERY DAY DIRECTED FOR CHOLESTER OL active Not Available Not Available No t Available Glucagon Emergency Kit 1 mg solution for injection INJECT CONTENTS FOR SEVERE LOW BLOOD GLUCOSE EPISODE active Not Available Not Available No t Available alprazolam 1 mg tablet TAKE 1 TABLET BY MOUTH THREE TIMES DAILY NEEDED active Not Available Not Available No t Available valacyclov ir 1 gram tablet TAKE 1 TABLET BY MOUTH THREE TIMES DAILY FOR 10 DAYS NEEDED active Not Available Not Available No t Available Excedrin Migraine 250 mg-250 mg-65 mg tablet Take 1 tablet as needed by oral route as directed. active OTC Not Available Not Available No t Available cyanocobal banks (vit B-12) 1,000 mcg tablet Take 2 tablets every day by oral route. 02/26 completed OTC (2000 Iu) Not Available Not Available Not Available amlodipine 5 mg tablet TAKE 1 TABLET BY MOUTH EVERY DAY active Not Available Not Available No t Available oxycodone- acetaminop hen 5 mg-325 mg tablet TAKE 1 TABLET BY MOUTH EVERY 6 HOURS active Not Available Not Available No t Available magnesium oxide 400 mg (241.3 mg magnesium) tablet TAKE 5 TABSULES ONCE DAILY active Not Available Not Available No t Available Vitamin C 1,000 mg tablet Take 1 tablet every day by oral route. active OTC Not Available Not Available No t Available Kenalog 10 mg/mL suspension for injection Take 1 mg by injection route. 07/16 completed Not Available Not Available Not Available promethazi ne 25 mg tablet Take 1 tablet every 4 hours by oral route for 30 days. 02/17 completed Not Available Not Available Not Available valsartan 320 mg tablet TAKE 1 TABLET BY MOUTH EVERY DAY active Not Available Not Available No t Available insulin lispro (U-100) 100 unit/mL subcutaneo us solution INJECT UP TO 60 UNITS PER DAILY VIA INSULIN PUMP active Not Available Not Available No t Available Ketostix strips USE 1 STRIP IF NEEDED FOR HIGH BLOOD SUGAR active Not Available Not Available No t Available azithromyc in 500 mg tablet Take 1 tablet every day by oral route for 7 days. 10/09 completed Not Available Not Available Not Available bupivacain e (PF) 0.5 % (5 mg/mL) injection solution Take 1 mL by injection route. 08/04 completed Not Available Not Available Not Available zolpidem ER 12.5 mg tablet,ext ended release,mu ltiphase Take 1 tablet every day by oral route as needed for 30 days. 2024 active Not Available Not Available Not Avai lable calcium 1500 Mg oral daily---O TC active OTC Not Available Not Available No t Available insulin lispro (Humalog) use with Insulin Pump as directed- --Dr. Moeller at 02/[address] Moeller at Not Available Not Available Not Available Vitamin D3 5000 Iu take 2 capsules Oral Daily---O TC active OTC Not Available Not Available No t Available morphine ER 10 mg capsule,ex tended release pellets TAKE 1 CAPSULE BY MOUTH EVERY DAY 02/15 completed Not Available Not Available Not Available desvenlafa xine succinate ER 100 mg tablet,ext ended release 24 hr TAKE 1 TABLET BY MOUTH EVERY DAY DIRECTED active Not Available Not Available No t Available Contour Next Test Strips USE DIRECTED 3 TIMES DAILY TO TEST BLOOD SUGAR active Not Available Not Available No t Available Humalog Mix 08/29 completed Not Available Not Available Not Available Flonase Allergy Relief 50 mcg/actuat ion nasal spray,susp ension [place] 1 spray every day by intranasa l route. active OTC Not Available Not Available No t Available Relistor 150 mg tablet TAKE 3 TABLETS BY MOUTH EVERY DAY 02/15 completed Not Available Not Available Not Available Trulance 3 mg tablet TAKE 1 TABLET BY MOUTH EVERY DAY 02/17 completed Not Available Not Available Not Available AutoSoft XC Infusion Set 23 Dr. Moeller at active Not Available Not Available No t Available t:slim X2 subcutaneo us cartridge Dr. Moeller at active Not Available Not Available No t Available Daily Fiber 0.4 gram capsule Take 1 capsule every day by oral route. 02/15 completed OTC Not Available Not Available Not Available t:slim X2 Control-IQ Dr. Moeller at active Dr. Moeller at Not Available Not Available Not Available Vitals Date Recorded Body height Body mass index (BMI) Body weight Body temperature Oxygen saturation Oxygen saturation in Arterial blood by Pulse oximetry Heart rate Respiratory rate Systolic blood pressure Diastolic blood pressure Provider Name and Address Organization Details Last Updated DateTime 5 175.26 cm 22 kg/m2 12844.2 6 g 98.1 [degF] 98 % 98 % 72 /min 18 /min 138 mm[Hg] 70 mm[Hg] Amanda Perla [place] - [facility] & [place] 5 14:29:03 Date Recorded Body height Body mass index (BMI) Body weight Body temperature Oxygen saturation Oxygen saturation in Arterial blood by Pulse oximetry Heart rate Respiratory rate Systolic blood pressure Diastolic blood pressure Provider Name and Address Organization Details Last Updated DateTime 4 175.26 cm 21.9 kg/m2 18516.6 7 g 98 [degF] 97 % 97 % 75 /min 18 /min 136 mm[Hg] 74 mm[Hg] Rebecca GLORIA - [facility] & [place] 4 14:22:37 Date Recorded Body height Body mass index (BMI) Body weight Body temperature Oxygen saturation Oxygen saturation in Arterial blood by Pulse oximetry Heart rate Respiratory rate Systolic blood pressure Diastolic blood pressure Provider Name and Address Organization Details Last Updated DateTime 4 175.26 cm 22.3 kg/m2 50625.1 7 g 98.3 [degF] 98 % 98 % 69 /min 16 /min 134 mm[Hg] 86 mm[Hg] Mick GLORIA - [facility] & [place] 4 14:43:34 Date Recorded Body height Body mass index (BMI) Body weight Body temperature Oxygen saturation Oxygen saturation in Arterial blood by Pulse oximetry Heart rate Respiratory rate Systolic blood pressure Diastolic blood pressure Provider Name and Address Organization Details Last Updated DateTime 4 175.26 cm 22.4 kg/m2 25851.6 g 97.7 [degF] 97 % 97 % 53 /min 16 /min 122 mm[Hg] 78 mm[Hg] Mick Flor [place] - [facility] & [place] 4 14:37:31 Date Recorded Body height Body mass index (BMI) Body weight Body temperature Oxygen saturation Oxygen saturation in Arterial blood by Pulse oximetry Respiratory rate Systolic blood pressure Diastolic blood pressure Provider Name and Address Organization Details Last Updated DateTime 4 175.26 cm 23.2 kg/m2 57122.1 g 98.1 [degF] 98 % 98 % 18 /min 118 mm[Hg] 68 mm[Hg] Amanda Perla [facility] & [place] 09:29:52 Social History Question Answer Notes LastModified by Organizat ion Details LastModified Time Tobacco Smoking Status Current Every Day Smoker abhinav hernandez, [facility] & [place] 11/06/2022 14:11:30 Do You Have An Advance Directive? Yes Information not available 07/02/2023 Do You Wear A Helmet When Biking? No N/A [email or web address] Information not available 08/04/2023 Are You Blind Or Do You Have Difficulty Seeing? No Information not available 07/02/2023 Is Blood Transfusion Acceptable In An Emergency? Yes [email or web address] Information not available 08/04/2023 What Is Your Level Of Caffeine Consumption? Occasional Information not available 07/02/2023 In The 14 Days Before Symptom Onset, Have You Had Close Contact With A Laboratory-confir med COVID-19 While That Case Was Ill? No [email or web address] Information not available 08/04/2023 In The 14 Days Before Symptom Onset, Have You Had Close Contact With A Person Who Is Under Investigation For COVID-19 While That Person Was Ill? No [email or web address] Information not available 08/04/2023 Have You Been To An Area Known To Be High Risk For COVID-19? No [email or web address] Information not available 08/04/2023 Are You Deaf Or Do You Have Serious Difficulty Hearing? No [email or web address] Information not available 08/04/2023 What Type Of Diet Are You Following? DIABETIC [email or web address] Information not available 08/04/2023 Have You Processed Blood Or Body Fluids From An Ebola Virus Disease Patient Without Appropriate PPE? No Information not available 08/04/2023 Do You Reside In Or Have You Traveled To An Area Where Ebola Virus Transmission Is Active? No [email or web address] Information not available 08/04/2023 How Many Days Of Moderate To Strenuous Exercise, Like A Brisk Walk, Did You Do In The Last 7 Days? 1 Information not available 08/04/2023 On Those Days That You Engage In Moderate To Strenuous Exercise, How Many Minutes, On Average, Do You Exercise? 20 Information not available 08/04/2023 Have There Been Any Changes To Your Family Or Social Situation? No Information no t available 08/04/2023 What Is The Fluoride Status Of Your Home? Unknown Information not available 08/04/2023 Are There Any Guns Present In Your Home? No [email or web address] Information not available 08/04/2023 Have You Recently Or Are You Planning To Travel To An Area With Zika Virus? No [email or web address] Information not available 08/04/2023 Do You Use Insect Repellent Routinely? No [email or web address] Information not available 08/04/2023 In General, Would You Say Your Health Is Good Information not available 08/04/2023 How Would You Describe The Condition Of Your Mouth And Teeth i ncluding False Teeth Or Dentures? Fair [email or web address] Information not available 08/04/2023 In The Past 7 Days, How Many Servings Of Fruits And Vegetables Did You Typically Eat Each Day? (1 Serving = 1 Cup Of Fresh Vegetables, 1 2 Cup Of Cooked Vegetables, Or 1 Medium Piece Of Fruit. 1 Cup = Size Of A Baseball.) 3-4 Servings Per Day Information not available 08/04/2023 In The Past 7 Days, How Many Servings Of High Fiber Or Whole Grain Foods Did You Typically Eat Each Day? (1 Serving = 1 Slice Of 100% Whole Wheat Bread, 1 Cup Of Whole-grain Or High-fiber Wnnyh-hu-ysf Cereal, 1 2 Cup Of Cooked Cereal Such As Oatmeal, Or 1 2 Cup Of Cooked Brown Rice Or Whole Wheat Pasta.) 1-2 Servings Per Day [email or web address] Information not available 08/04/2023 In The Past 7 Days, How Many Servings Of Fried Or High-fat Foods Did You Typically Eat Each Day? (Examples Include Fried Chicken, Fried Fish, Cr, Greek [place], Potato Chips, [place] Chips, Doughnuts, Creamy Salad Dressings, And Foods Made With Whole Milk, Cream, Cheese, Or Mayonnaise.) 0 Servings Per Day [email or web address] Information not available 08/04/2023 In The Past 7 Days, How Many Sugar-sweetened (not Diet) Beverages Did You Typically Consume Each Day 0 Drinks Per Day [email or web address] Information not available 08/04/2023 Each Night, How Many Hours Of Sleep Do You Usually Get? 7-8 Hours [email or web address] Information not available 08/04/2023 Do You Snore Or Has Anyone Told You That You Snore? No [email or web address] Information not available 08/04/2023 In The Past 7 Days, How Often Have You Winston Sleepy During The Daytime? Sometimes [email or web address] Information not available 08/04/2023 Do You Have Chronic Pain? Yes [email or web address] Information not available 08/04/2023 If Yes, Location Of Pain All Over [email or web address] Information not available 08/04/2023 In The Past 7 Days, How Would You Rate Your Pain? Moderate Pain(4-6) [email or web address] Information not available 08/04/2023 Are You In A Pain Management Program? Yes [email or web address] Information not available 08/04/2023 Do You Take Opioids For Your Pain? Yes [email or web address] Information not available 08/04/2023 How Often Is Stress A Problem For You In Handling Such Things As: Your Health, Your Finances, Your Family And Social Relationships, Your Work? Never Or Rarely [email or web address] Information not available 08/04/2023 How Often Do You Get The Social And Emotional Support You Need: Sometimes Information no t available 08/04/2023 In The Past 7 Days, Did You Need Help From Others To Take Care Of Things Such As Laundry And Housekeep- Ing, Banking, Shopping, Using The Telephone, Food Preparation, Transportation, Or Taking Your Own Medications? No [email or web address] Information not available 08/04/2023 Do You Live Alone? No [email or web address] Information not available 08/04/2023 Does Your Home Have Any Fall Risks (un-level Floors, Unfastened Rugs, Poor Lighting, Etc)? No [email or web address] Information not available 08/04/2023 What Was The Date Of Your Most Recent Tobacco Screening? 08/04/2023 [email or web address] Information not available 08/04/2023 How Many Children Do You Have? 0 Information not available 08/04/2023 What Is Your Current Pack Years? 30ormorepackyear s [email or web address] Information not available 08/04/2023 Do You Have Any Pets? No [email or web address] Information not available 08/04/2023 What Is Your Relationship Status? [email or web address] Information not available 08/04/2023 Do You Use Your Seat Belt Or Car Seat Routinely? Yes [email or web address] Information not available 08/04/2023 Are You Sexually Active? No [email or web address] Information not available 08/04/2023 Do You Have Smoke And Carbon Monoxide Detectors In Your Home? No [email or web address] Information not available 08/04/2023 At What Age Did You Start Smoking Tobacco? 20 Information not available 08/04/2023 Are You Passively Exposed To Smoke? Yes Information no t available 07/02/2023 How Much Tobacco Do You Smoke? 1 PPD [email or web address] Information not available 11/06/2022 What Types Of Sporting Activities Do You Participate In? None [email or web address] Information not available 08/04/2023 Do You Use Sunscreen Routinely? No [email or web address] Information not available 08/04/2023 Has Tobacco Cessation Counseling Been Provided? Yes [email or web address] Information not available 08/04/2023 On What Date Was Tobacco Cessation Counseling Provided? 08/04/2023 [email or web address] Information not available 08/04/2023 How Many Years Have You Smoked Tobacco? 40 Information not available 08/04/2023 Do You Have Difficulty Walking Or Climbing Stairs? No [email or web address] Information not available 08/04/2023 Are You Currently In School? No [email or web address] Information not available 08/04/2023 What Contraceptive Method Was Reported At Start Of This Visit? None [email or web address] Information not available 08/04/2023 What Contraceptive Method Was Reported At End Of This Visit? None [email or web address] Information not available 08/04/2023 Do You Want To Talk About Contraception Or Prevention During Your Visit Today? No - I Do Not Want To Talk About Contraception Today Because I Am Here For Something Else [email or web address] Information not available 08/04/2023 Do You Have Any Future Plans To Get ? No, I Don't Want To Become Information not available 08/04/2023 What Is Your Reason For Having No Contraceptive Method At Start Of This Visit? Abstinence Information not available 08/04/2023 What Is Your Reason For Having No Contraceptive Method At End Of This Visit? Abstinence Information not available 08/04/2023 Sex: Female Functional Status Question Answer Note LastModified by Organizat ion Details LastModified Time Do you use any illicit or recreational drugs? No [email or web address] Information not available 07/10/2022 Do you or have you ever used any other forms of tobacco or nicotine? No [email or web address] Information not available 08/04/2023 What is your level of alcohol consumption? None Information not available 07/10/2022 Do you or have you ever used smokeless tobacco? Never used [email or web address] tobacco Information not available 07/02/2023 Are you currently employed? No Information not available 08/04/2023 Do you have transportation difficulties? No [email or web address] Information not available 08/04/2023 What is your status? Not [email or web address] Information no t available 08/04/2023 Are you able to walk? YESWOREST [email or web address] Information not available 08/04/2023 Do you have difficulty doing errands alone? No Information not available 08/04/2023 Are you able to care for yourself? Yes [email or web address] Information n ot available 08/04/2023 Do you have difficulty dressing or bathing? No Information not available 08/04/2023 What is your exercise level? Occasional [email or web address] Information not available 08/04/2023 Mental Status Question Answer Note LastModified by Organizat ion Details LastModified Time Do you feel stressed (tense, restless, nervous, or anxious, or unable to sleep at night)? [id number] [email or web address] Information not available 08/04/2023 Do you have difficulty concentrating, remembering or making decisions? Yes [email or web address] Information no t available 08/04/2023 Family History Relationship Description Onset Age of this Age Resolved Age Notes LastModified by Organization Details LastModified Time Mother Osteoporosis [email or web address] Not avai lable 07/10/2022 14:29:25 Mother Essential hypertension [email or web address] Not available 08:58:43 Medical History Condition Response Coronary Artery Disease N Gout N Kidney Stones N Hyperthyroidism N GI Problems Y Depression Y COPD N Hypothyroidism Y Anemia N Difficulty Swallowing N MRSA exposure N Anxiety Disorder N Meniere's disease N Diabetes Y Autoimmune disease Y Obesity N Vision or Eye Problems Y Arthritis Y Mental Disorder N Tuberculosis N AIDS/HIV N Congestive Heart Failure (CHF) N Cancer N Stroke N Diverticulitis N Asthma N Reflux/GERD N Jaundice N High Cholesterol Y Liver Disease N Heart Disease N Pulmonary Embolism N Fibromyalgia Y Chronic Ear Infections N Hypertension Y Osteoporosis Y Kidney Disease N Gynecological History Statement/Question Response Sexually Active? N Obstetrics History GPAL:G 0 P 0 0 0 0 Immunizations Vaccine Type Date Status Note Provider Nam e and Address Organization Details Recorded Time Influenza, split virus, quadrivalent, PF 0 completed Rebeccasoto Espinosa null, [place] [facility] [place] 08/05/2022 14:49:09 Influenza, split virus, quadrivalent, PF 8 completed Rebecca Espinosa null, [place] - [facility] [place] 08/05/2022 14:49:09 Influenza, split virus, quadrivalent, PF 7 completed Rebecca Espinosa null, [place] - [facility] [place] 08/05/2022 14:49:09 COVID-19, mRNA, LNP-S, PF, 100 mcg/0.5mL dose or 50 mcg/0.25mL dose 1 completed [facility] [place] 08/05/2022 14:49:09 Influenza, split virus, quadrivalent, PF 9 completed Rebecca Espinosa null, [place] - [facility] [place] 08/05/2022 14:49:09 Influenza, split virus, quadrivalent, PF 2 completed abhinav clark null, [facility] [place] 07/10/2022 15:11:38 Influenza, split virus, quadrivalent, PF 3 completed Rebecca Espinosa [place], [place] - [facility] [place] 07/16/2023 15:24:35 zoster recombinant 3 completed Rebecca Espinosa null, [place] - [facility] [place] 07/29/2023 17:23:13 Influenza, split virus, trivalent, PF 4 completed Tod Guerra MD [address] [place] [address],[address], [place], [address], [facility] [place] 07/15/2024 16:16:24 COVID-19, mRNA, LNP-S, PF, 100 mcg/0.5mL dose or 50 mcg/0.25mL dose 1 completed Rebecca hernandez, JUANI - [facility] [place] 08/05/2022 14:49:09 COVID-19, mRNA, LNP-S, PF, 100 mcg/0.5mL dose or 50 mcg/0.25mL dose 1 completed Rebecca hernandez, JUANI - [facility] [place] 08/05/2022 14:49:09 COVID-19, mRNA, LNP-S, PF, 50 mcg/0.5 mL dose 1 completed Not Available [facility] 08/05/2023 20:11:02 Past Encounters Encounter ID Performer Location Encounter Start Date Encounter Closed Date Diagnosis/Indication Diagnosis SNOMED-CT Code Diagnosis ICD10 Code Diagnosis Note [id number] [facility] [address] [place] [id number] 07/10/2022 13:54:35 07/10/2022 15:52:02 Administration of influenza vaccine 83232072 Z23 Neuropathy due to type 1 diabetes mellitus 593827929 E10.40 The patient is followed and monitored for chronic pain management with the use of chronic scheduled medication s. Screening appears to show no signs of diversion nor abuse potential. There monitored closely they are getting good reasonable pain control from the currently prescribed medication s. They are following the contractua l agreement with our practice. Fibromyalgia 065552527 M 79.7 The patient is followed and monitored for chronic pain management with the use of chronic scheduled medication s. Screening appears to show no signs of diversion nor abuse potential. There monitored closely they are getting good reasonable pain control from the currently prescribed medication s. They are following the contractua l agreement with our practice. Chronic pain syndrome 37 5949391 G89.4 Patient is followed for chronic pain syndrome that has required chronic narcotic use. There compliant with their contractua l agreement in addition to usage. There is no apparent diversion. We have re-establi shed the need for ongoing dosing as is prescribed . Restless legs 09966923 G 25.81 This represents a chronic process that has been stable on medication s for extended period of time. Currently there appears to be no toxicity or side effect and good response to treatment. For these reasons we will continue medication s as ordered. Essential hypertension 80489562 I10 Patient returns today for follow-up of a chronic diagnosis of hypertensi on. Outpatient surveillan ce as demonstrat ed good control, without any issues or complaints of side effect. Mixed hyperlipidemia 267 269566 E78.2 Patient returns for follow-up appointmen t today relative to a diagnosis of hyperlipid emia and treatment for such. Updated laboratory studies are being used relative to appropriat e treatment. Patient voices no side effect/mus cular complaints muscle weakness. Moderate r ecurrent major depression 42300636 F33.1 Ongoing chronic treatment for major depressive disorder is reason for follow-up today. Patient states they are doing well, they perceive no side effect or negative issues with her current medication s. They perceive their mood to be well-adjus victoria, [id number] MD [facility] [address] [place] [address] 08/05/2022 14:05:33 08/05/2022 15:38:36 Neuropathy due to type 1 diabetes mellitus 573385509 E10.40 The patient is followed and monitored for chronic pain management with the use of chronic scheduled medication s. Screening appears to show no signs of diversion nor abuse potential. There monitored closely they are getting good reasonable pain control from the currently prescribed medication s. They are following the contractua l agreement with our practice. Restless legs 40485781 G 25.81 This represents a chronic process that has been stable on medication s for extended period of time. Currently there appears to be no toxicity or side effect and good response to treatment. For these reasons we will continue medication s as ordered. Sleep disorder 22059675 G47.01 This represents a chronic process that has been medically stable. Currently remains asymptomat ic, with no change in status, and no change in progressio n diagnostic ally or from a treatment standpoint . Fibromyalgia 242928791 M 79.7 The patient is followed and monitored for chronic pain management with the use of chronic scheduled medication s. Screening appears to show no signs of diversion nor abuse potential. There monitored closely they are getting good reasonable pain control from the currently prescribed medication s. They are following the contractua l agreement with our practice. Major depr essive disorder 620737524 F32.9 Ongoing chronic treatment for major depressive disorder is reason for follow-up today. Patient states they are doing well, they perceive no side effect or negative issues with her current medication s. They perceive their mood to be well-adjus victoria, Chronic pain syndrome 37 2451547 G89.4 Patient is followed for chronic pain syndrome that has required chronic narcotic use. There compliant with their contractua l agreement in addition to usage. There is no apparent diversion. We have re-establi shed the need for ongoing dosing as is prescribed . [id number] MD [facility] [address] [place] [address] 08/26/2022 14:23:28 08/26/2022 15:29:19 Complication due to diabetes mellitus 08535509 E11.69 Neuropathy due to type 1 diabetes mellitus 317699686 E10.40 The patient is followed and monitored for chronic pain management with the use of chronic scheduled medication s. Screening appears to show no signs of diversion nor abuse potential. There monitored closely they are getting good reasonable pain control from the currently prescribed medication s. They are following the contractua l agreement with our practice. Essential hypertension 27696688 I10 Patient returns today for follow-up of a chronic diagnosis of hypertensi on. Outpatient surveillan ce as demonstrat ed good control, without any issues or complaints of side effect. Chronic pain syndrome 37 7209509 G89.4 Patient is followed for chronic pain syndrome that has required chronic narcotic use. There compliant with their contractua l agreement in addition to usage. There is no apparent diversion. We have re-establi shed the need for ongoing dosing as is prescribed . [id number] [facility] [address] [place] [address] 08/29/2022 11:54:33 08/29/2022 13:05:58 Influenza-like symptoms 718022364 R68.89 influenza A and B both negative. Viral screening 90372179 4 Z11.52 COVID-19 screening negative. Acute bronchitis 9325249 2 J20.9 Counseling given in reference to medication regimen. Supportive care recommende d. Discussed with patient over-the-c ounter interventi ons to treat along with the therapeuti c action of the medication and instructed to notify of worsening symptoms for evaluation . Instructed to push fluids along with the use of acetaminop hen/ibupro fen for fever and body aches. Education given to follow-up sooner if symptoms do not improve. [id number] MD [facility] [address] [place] [address] 10/09/2022 14:43:28 10/09/2022 15:58:32 Chronic pain syndrome 542535360 G89.4 Patient is followed for chronic pain syndrome that has required chronic narcotic use. There compliant with their contractua l agreement in addition to usage. There is no apparent diversion. We have re-establi shed the need for ongoing dosing as is prescribed . Fibromyalgia 033671661 M 79.7 The patient is followed and monitored for chronic pain management with the use of chronic scheduled medication s. Screening appears to show no signs of diversion nor abuse potential. There monitored closely they are getting good reasonable pain control from the currently prescribed medication s. They are following the contractua l agreement with our practice. Essential hypertension 66286997 I10 Patient returns today for follow-up of a chronic diagnosis of hypertensi on. Outpatient surveillan ce as demonstrat ed good control, without any issues or complaints of side effect. Mixed hyperlipidemia 267 887797 E78.2 Patient returns for follow-up appointmen t today relative to a diagnosis of hyperlipid emia and treatment for such. Updated laboratory studies are being used relative to appropriat e treatment. Patient voices no side effect/mus cular complaints muscle weakness. Recurrent herpes simplex labialis 380597694 B00.1 Major depr essive disorder 266602742 F32.9 Ongoing chronic treatment for major depressive disorder is reason for follow-up today. Patient states they are doing well, they perceive no side effect or negative issues with her current medication s. They perceive their mood to be well-adjus victoria, Moderate r ecurrent major depression 46504047 F33.1 Ongoing chronic treatment for major depressive disorder is reason for follow-up today. Patient states they are doing well, they perceive no side effect or negative issues with her current medication s. They perceive their mood to be well-adjus victoria, Sleep disorder 23343358 G47.01 This represents a chronic process that has been medically stable. Currently remains asymptomat ic, with no change in status, and no change in progressio n diagnostic ally or from a treatment standpoint . Nausea and vomiting 1693 1999 R11.2 [id number] MD [facility] [address] [place] [address] 11/06/2022 13:55:57 11/06/2022 14:43:07 Chronic pain syndrome 037223993 G89.4 Patient is followed for chronic pain syndrome that has required chronic narcotic use. There compliant with their contractua l agreement in addition to usage. There is no apparent diversion. We have re-establi shed the need for ongoing dosing as is prescribed . Fibromyalgia 451363612 M 79.7 The patient is followed and monitored for chronic pain management with the use of chronic scheduled medication s. Screening appears to show no signs of diversion nor abuse potential. There monitored closely they are getting good reasonable pain control from the currently prescribed medication s. They are following the contractua l agreement with our practice. Major depr essive disorder 279257017 F32.9 Ongoing chronic treatment for major depressive disorder is reason for follow-up today. Patient states they are doing well, they perceive no side effect or negative issues with her current medication s. They perceive their mood to be well-adjus victoria, Sleep disorder 17825281 G47.01 This represents a chronic process that has been medically stable. Currently remains asymptomat ic, with no change in status, and no change in progressio n diagnostic ally or from a treatment standpoint . Neuropathy due to type 1 diabetes mellitus 096045666 E10.40 The patient is followed and monitored for chronic pain management with the use of chronic scheduled medication s. Screening appears to show no signs of diversion nor abuse potential. There monitored closely they are getting good reasonable pain control from the currently prescribed medication s. They are following the contractua l agreement with our practice. Chronic ki dney disease stage 3A 844746493 N18.32 Moderate r ecurrent major depression 62663932 F33.1 Ongoing chronic treatment for major depressive disorder is reason for follow-up today. Patient states they are doing well, they perceive no side effect or negative issues with her current medication s. They perceive their mood to be well-adjus victoria, Chronic ly mphoid leukemia, disease 77582032 C91.10 [id number] MD [facility] [address] [place] [address] 02/14/2023 09:41:09 02/14/2023 10:36:13 Chronic pain syndrome 760103730 G89.4 Patient is followed for chronic pain syndrome that has required chronic narcotic use. with her transition between [place] winter home and now there has been a problem with the timing of her med refills. I am going to go on and do a 10 day prescripti on to catch her up so that we will get her back in sync for her routine follow-up Restless legs 72231769 G 25.81 There appears to be exacerbati on in her restless leg syndrome complaints that seems to start early in the evening. For that reason I am going to try between now and her follow-up visit to do 2 mg early afternoon as well as 2 mg at bedtime and then reassess Generalize d osteoarthritis 807660643 M15.9 today's complaint of pain in the upper back appears to be secondary to cervical radicular pain. She has markedly decreased range of motion of the cervical spine. Examinatio n suggested that her pain in her hip is right trochanter ic bursitis and I have talked her about stretching exercises in that regard Trochanter ic bursitis of right hip [id number] 68881 M70.61 as described above [id number] MD [facility] [address] [place] [address] 02/24/2023 15:20:15 02/24/2023 16:56:06 Essential hypertension 61990271 I10 Hypothyroidism 39056845 E03.9 Hyperlipidemia 57322320 E78.5 Neuropathy due to type 1 diabetes mellitus 941429239 E10.40 Long-term drug therapy 424017755 Z79.899 [id number] MD [facility] [address] [place] [address] 02/26/2023 08:45:40 02/26/2023 09:52:50 Neuropathy due to type 1 diabetes mellitus 390602503 E10.40 Patient comes in today for follow-up of diabetes mellitus with multiple comorbidit ies that will be addressed further in the noted problem list. Reported random blood sugars suggest current status of diabetes appears to be reasonably well controlled with no with this for significan t hypoglycem ia etc. current A1c checked at the [facility] 6.7 Chronic ki dney disease stage 3A 867850434 N18.32 This represents a chronic process that has been medically stable. Currently remains asymptomat ic, with no change in status, and no change in progressio n diagnostic ally or from a treatment standpoint . she has no evidence of nephropath y this is likely just age-relate d decrease in function. Essential hypertension 92435066 I10 Patient returns today for follow-up of a chronic diagnosis of hypertensi on. Outpatient surveillan ce as demonstrat ed good control, without any issues or complaints of side effect. Today's evaluation s suggest adequate control of disease process and no need for change in medication currently. Mixed hyperlipidemia 267 230201 E78.2 Patient returns for follow-up appointmen t today relative to a diagnosis of hyperlipid emia and treatment for such. Updated laboratory studies are being used relative to appropriat e treatment. Patient voices no side effect/mus cular complaints muscle weakness. Acquired hypothyroidism 684502007 E03.4 Follow-up today relative to a chronic diagnosis of acquired hypothyroi dism. Clinically the patient voices no complaints , states no unusual weight gain or lower extremity edema. Restless legs 11906140 G 25.81 on follow-up Amanda is doing much better but she is doing 1 mg twice a day through the course of the day that she is doing 2 mg at bedtime which seems to have her much better controlled . Will go on and prescribed for her with the desire to to continue her same dosing Osteoporosis 60602334 M8 1.0 This represents a chronic process that has been stable on medication s for extended period of time. Currently there appears to be no toxicity or side effect and good response to treatment. For these reasons we will continue medication s as ordered. Moderate r ecurrent major depression 32948514 F33.1 Ongoing chronic treatment for major depressive disorder is reason for follow-up today. Patient states they are doing well, they perceive no side effect or negative issues with her current medication s. They perceive their mood to be well-adjus victoria, Chronic ly mphoid leukemia, disease 61244985 C91.10 This represents a chronic process that has been stable on medication s for extended period of time. Currently there appears to be no toxicity or side effect and good response to treatment. For these reasons we will continue medication s as ordered. Fibromyalgia 082083802 M 79.7 The patient is followed and monitored for chronic pain management with the use of chronic scheduled medication s. Screening appears to show no signs of diversion nor abuse potential. There monitored closely they are getting good reasonable pain control from the currently prescribed medication s. They are following the contractua l agreement with our practice. Chronic pain syndrome 37 9758797 G89.4 Patient is followed for chronic pain syndrome that has required chronic narcotic use. with her transition between her winter home and now there has been a problem with the timing of her med refills. I am going to go on and do a 10 day prescripti on to catch her up so that we will get her back in sync for her routine follow-up Sleep disorder 15141591 G47.01 Major depr essive disorder 742515100 F32.9 Ongoing chronic treatment for major depressive disorder is reason for follow-up today. Patient states they are doing well, they perceive no side effect or negative issues with her current medication s. They perceive their mood to be well-adjus Markus kessler ed adult depression screening tool completed [id number] Z13.89 [id number] MD QUIRINO Fragoso [facility] [address] [place] [address] 03/26/2023 14:04:18 03/26/2023 14:53:03 Fibromyalgia [id number] M79.7 The patient is followed and monitored for chronic pain management with the use of chronic scheduled medication s. Screening appears to show no signs of diversion nor abuse potential. There monitored closely they are getting good reasonable pain control from the currently prescribed medication s. They are following the contractua l agreement with our practice. Neuropathy due to type 1 diabetes mellitus [id number] E10.40 Patient comes in today for follow-up of diabetes mellitus with multiple comorbidit ies that will be addressed further in the noted problem list. Reported random blood sugars suggest current status of diabetes appears to be reasonably well controlled with no with this for significan t hypoglycem ia etc. current A1c checked at the [facility] 6.7 Chronic pain syndrome 37 4792669 G89.4 The patient is followed and monitored for chronic pain management with the use of chronic scheduled medication s. Screening appears to show no signs of diversion nor abuse potential. There monitored closely they are getting good reasonable pain control from the currently prescribed medication s. They are following the contractua l agreement with our practice. [id number] MD [facility] [address] [place] [address] 04/23/2023 14:13:05 04/23/2023 16:08:10 Chronic pain syndrome 674479514 G89.4 The patient is followed and monitored for chronic pain management with the use of chronic scheduled medication s. Screening appears to show no signs of diversion nor abuse potential. There monitored closely they are getting good reasonable pain control from the currently prescribed medication s. They are following the contractua l agreement with our practice. Neuropathy due to type 1 diabetes mellitus 124303290 E10.40 Patient comes in today for follow-up of diabetes mellitus with multiple comorbidit ies that will be addressed further in the noted problem list. Reported random blood sugars suggest current status of diabetes appears to be reasonably well controlled with no with this for significan t hypoglycem ia etc. current A1c checked at the [facility] 6.7 Fibromyalgia [id number] M 79.7 The patient is followed and monitored for chronic pain management with the use of chronic scheduled medication s. Screening appears to show no signs of diversion nor abuse potential. There monitored closely they are getting good reasonable pain control from the currently prescribed medication s. They are following the contractua l agreement with our practice. Chronic ly mphoid leukemia, disease 24607214 C91.10 This represents a chronic process that has been stable on medication s for extended period of time. Currently there appears to be no toxicity or side effect and good response to treatment. For these reasons we will continue medication s as ordered. [id number] Tod reyes MD [facility] [address] [place] [address] 05/27/2023 12:21:16 05/27/2023 13:01:07 Chronic pain syndrome 888793646 G89.4 The patient is followed and monitored for chronic pain management with the use of chronic scheduled medication s. Screening appears to show no signs of diversion nor abuse potential. There monitored closely they are getting good reasonable pain control from the currently prescribed medication s. They are following the contractua l agreement with our practice. Neuropathy due to type 1 diabetes mellitus [id number] E10.40 Patient comes in today for follow-up of diabetes mellitus with multiple comorbidit ies that will be addressed further in the noted problem list. Reported random blood sugars suggest current status of diabetes appears to be reasonably well controlled with no with this for significan t hypoglycem ia etc. current A1c checked at the [facility] 6.7 Fibromyalgia [id number] M 79.7 The patient is followed and monitored for chronic pain management with the use of chronic scheduled medication s. Screening appears to show no signs of diversion nor abuse potential. There monitored closely they are getting good reasonable pain control from the currently prescribed medication s. They are following the contractua l agreement with our practice. Chronic ly mphoid leukemia, disease [id number] C91.10 This represents a chronic process that has been stable on medication s for extended period of time. Currently there appears to be no toxicity or side effect and good response to treatment. For these reasons we will continue medication s as ordered. Essential hypertension 19964219 I10 Patient returns today for follow-up of a chronic diagnosis of hypertensi on. Outpatient surveillan ce as demonstrat ed good control, without any issues or complaints of side effect. Today's evaluation s suggest adequate control of disease process and no need for change in medication currently. Restless legs 67843138 G 25.81 on follow-up Amanda is doing much better but she is doing 1 mg twice a day through the course of the day that she is doing 2 mg at bedtime which seems to have her much better controlled . Will go on and prescribed for her with the desire to to continue her same dosing Major depr essive disorder 832771471 F32.9 Ongoing chronic treatment for major depressive disorder is reason for follow-up today. Patient states they are doing well, they perceive no side effect or negative issues with her current medication s. They perceive their mood to be well-adjus [facility], [id number] MD QUIRINO Fragoso [facility] [address] [place] [address] 06/19/2023 12:15:38 06/19/2023 14:53:57 Chronic pain syndrome 513029531 G89.4 The patient is followed and monitored for chronic pain management with the use of chronic scheduled medication s. Screening appears to show no signs of diversion nor abuse potential. There monitored closely they are getting good reasonable pain control from the currently prescribed medication s. They are following the contractua l agreement with our practice. Neuropathy due to type 1 diabetes mellitus 034176943 E10.40 Patient comes in today for follow-up of diabetes mellitus with multiple comorbidit ies that will be addressed further in the noted problem list. Reported random blood sugars suggest current status of diabetes appears to be reasonably well controlled with no with this for significan t hypoglycem ia etc. current A1c checked at the [facility] 6.7 Fibromyalgia 420234414 M 79.7 The patient is followed and monitored for chronic pain management with the use of chronic scheduled medication s. Screening appears to show no signs of diversion nor abuse potential. There monitored closely they are getting good reasonable pain control from the currently prescribed medication s. They are following the contractua l agreement with our practice. Chronic ly mphoid leukemia, disease 46542875 C91.10 This represents a chronic process that has been stable on medication s for extended period of time. Currently there appears to be no toxicity or side effect and good response to treatment. For these reasons we will continue medication s as ordered. Moderate r ecurrent major depression 54203553 F33.1 Ongoing chronic treatment for major depressive disorder is Part of the reason for follow-up today. Patient states she has been struggling more for the last several months. The reality of her low-dose CT scan of the chest his brought to her the ramificati ons of her long-term history of smoking and now she struggles with the emotion in of nicotine withdrawal versus her underlying health issues.Iss ues relative to today's discussion and diagnosis were addressed. All questions were attempted to be addressed and reconciled . Any particular necessary informatio n was dispensed Tobacco de pendence syndrome 48540817 F17.200 It was discussed today at visit the ongoing use of tobacco and concerns for it is negative ramificati ons on pulmonary and cardiovasc [facility]. Offers for assistance with tobacco use cessation were offered. [id number] MD QUIRINO Fragoso [facility] [address] [place] [address] 07/16/2023 13:52:44 07/16/2023 15:30:26 Chronic pain syndrome 135886907 G89.4 The patient is followed and monitored for chronic pain management with the use of chronic scheduled medication s. Screening appears to show no signs of diversion nor abuse potential. There monitored closely they are getting good reasonable pain control from the currently prescribed medication s. They are following the contractua l agreement with our practice. Fibromyalgia 577394688 M 79.7 The patient is followed and monitored for chronic pain management with the use of chronic scheduled medication s. Screening appears to show no signs of diversion nor abuse potential. There monitored closely they are getting good reasonable pain control from the currently prescribed medication s. They are following the contractua l agreement with our practice. Neuropathy due to type 1 diabetes mellitus 348586840 E10.40 Patient comes in today for follow-up of diabetes mellitus with multiple comorbidit ies that will be addressed further in the noted problem list. Reported random blood sugars suggest current status of diabetes appears to be reasonably well controlled with no with this for significan t hypoglycem ia etc. current A1c checked at the [facility] 6.7 Chronic ly mphoid leukemia, disease 88355767 C91.10 This represents a chronic process that has been stable on medication s for extended period of time. Currently there appears to be no toxicity or side effect and good response to treatment. For these reasons we will continue medication s as ordered. Essential hypertension 57358565 I10 Patient returns today for follow-up of a chronic diagnosis of hypertensi on. Outpatient surveillan ce as demonstrat ed good control, without any issues or complaints of side effect. Today's evaluation s suggest adequate control of disease process and no need for change in medication currently. Moderate r ecurrent major depression 00646534 F33.1 Ongoing chronic treatment for major depressive disorder is Part of the reason for follow-up today. Patient states she has been struggling more for the last several months. The reality of her low-dose CT scan of the chest his brought to her the ramificati ons of her long-term history of smoking and now she struggles with the emotion in of nicotine withdrawal versus her underlying health issues.Iss ues relative to today's discussion and diagnosis were addressed. All questions were attempted to be addressed and reconciled . Any particular necessary informatio n was dispensed Major depr essive disorder 264622140 F32.9 Ongoing chronic treatment for major depressive disorder is reason for follow-up today. Patient states they are doing well, they perceive no side effect or negative issues with her current medication s. They perceive their mood to be well-adjus victoria, Mixed hyperlipidemia 267 403593 E78.2 Patient returns for follow-up appointmen t today relative to a diagnosis of hyperlipid emia and treatment for such. Updated laboratory studies are being used relative to appropriat e treatment. Patient voices no side effect/mus cular complaints muscle weakness. Restless legs 11389880 G 25.81 on follow-up Amanda is doing much better but she is doing 1 mg twice a day through the course of the day that she is doing 2 mg at bedtime which seems to have her much better controlled . Will go on and prescribed for her with the desire to to continue her same dosing Administra tion of influenza vaccine 70889805 Z23 [id number] DO QUIRINO SALDIVAR [address] [address] 07/02/2023 08:35:40 07/02/2023 09:52:49 Fracture of distal end of radius 288599836 S52.501A [id number] DO QUIRINO SALDIVAR [address] [address] 07/09/2023 07:55:13 07/09/2023 08:48:37 Fracture of distal end of radius 234366279 S52.501D Pain of right wrist 3169 333855 50814 M25.531 Arthritis of wrist 37220 97986 109 M13.831 Complex re gional pain syndrome type I 723769810 G90.50 [id number] MD QUIRINO Fragoso [facility] [address] [place] [address] 08/04/2023 13:56:05 08/04/2023 15:23:01 Adult health examination 650117025 Z00.00 Appropriat e age related, gender related, and health risk related parameters were addressed today recommenda tions were made for appropriat e wellness studies as indicated. Chronic ki dney disease stage 3A 053949020 N18.32 This represents a chronic process that has been medically stable. Currently remains asymptomat ic, with no change in status, and no change in progressio n diagnostic ally or from a treatment standpoint . she has no evidence of nephropath y this is likely just age-relate d decrease in function. Chronic ly mphoid leukemia, disease 82860574 C91.10 This represents a chronic process that has been stable on medication s for extended period of time. Currently there appears to be no toxicity or side effect and good response to treatment. For these reasons we will continue medication s as ordered. Essential hypertension 11374467 I10 Patient returns today for follow-up of a chronic diagnosis of hypertensi on. Outpatient surveillan ce as demonstrat ed good control, without any issues or complaints of side effect. Today's evaluation s suggest adequate control of disease process and no need for change in medication currently. Mixed hyperlipidemia 267 158161 E78.2 Patient returns for follow-up appointmen t today relative to a diagnosis of hyperlipid emia and treatment for such. Updated laboratory studies are being used relative to appropriat e treatment. Patient voices no side effect/mus cular complaints muscle weakness. Neuropathy due to type 1 diabetes mellitus 897218351 E10.40 Patient comes in today for follow-up of diabetes mellitus with multiple comorbidit ies that will be addressed further in the noted problem list. Reported random blood sugars suggest current status of diabetes appears to be reasonably well controlled with no with this for significan t hypoglycem ia etc. current A1c checked at the [facility] 6.7 Chronic pain syndrome 37 6846787 G89.4 The patient is followed and monitored for chronic pain management with the use of chronic scheduled medication s. Screening appears to show no signs of diversion nor abuse potential. There monitored closely they are getting good reasonable pain control from the currently prescribed medication s. They are following the contractua l agreement with our practice. Long-term drug therapy 561550354 Z79.899 Moderate r ecurrent major depression 31166610 F33.1 Ongoing chronic treatment for major depressive disorder is Part of the reason for follow-up today. Patient states she has been struggling more for the last several months. The reality of her low-dose CT scan of the chest his brought to her the ramificati ons of her long-term history of smoking and now she struggles with the emotion in of nicotine withdrawal versus her underlying health issues.Iss ues relative to today's discussion and diagnosis were addressed. All questions were attempted to be addressed and reconciled . Any particular necessary informatio n was dispensed Restless legs 14373265 G 25.81 on follow-up Amanda is doing much better but she is doing 1 mg twice a day through the course of the day that she is doing 2 mg at bedtime which seems to have her much better controlled . Will go on and prescribed for her with the desire to to continue her same dosing Sleep disorder 59260711 G47.01 This represents a chronic process that has been medically stable. Currently remains asymptomat ic, with no change in status, and no change in progressio n diagnostic ally or from a treatment standpoint . Advance care planning 71 1227273 Z71.89 Issues relative to today's discussion and diagnosis were addressed. All questions were attempted to be addressed and reconciled . Any particular necessary informatio n was dispensed Standard ed adult depression screening tool completed [id number] 93560 Z13.89 Appropriat e age related, gender related, and health risk related parameters were addressed today recommenda tions were made for appropriat e wellness studies as indicated. [id number] MD QUIRINO Fragoso [facility] [address] [place] [address] 02/13/2024 08:14:18 02/13/2024 12:24:41 Essential hypertension 61046326 I10 Neuropathy due to type 1 diabetes mellitus 248074159 E10.40 [id number] MD QUIRINO Fragoso [facility] [address] [place] [address] 02/18/2024 14:01:36 02/18/2024 15:06:33 Neuropathy due to type 1 diabetes mellitus 507727988 E10.40 This represents a chronic process that has been stable on medication s for extended period of time. Currently there appears to be no toxicity or side effect and good response to treatment. For these reasons we will continue medication s as ordered. Chronic ki dney disease stage 3A 693493543 N18.32 This represents a chronic process that has been medically stable. Currently remains asymptomat ic, with no change in status, and no change in progressio n diagnostic ally or from a treatment standpoint . she has no evidence of nephropath y this is likely just age-relate d decrease in function. Essential hypertension 61353585 I10 Patient returns today for follow-up of a chronic diagnosis of hypertensi on. Outpatient surveillan ce as demonstrat ed good control, without any issues or complaints of side effect. Mixed hyperlipidemia 267 573597 E78.2 Patient returns for follow-up appointmen t today relative to a diagnosis of hyperlipid emia and treatment for such. Updated laboratory studies are being used relative to appropriat e treatment. Patient voices no side effect/mus cular complaints muscle weakness. Fibromyalgia 340276318 M 79.7 The patient is followed and monitored for chronic pain management with the use of chronic scheduled medication s. Screening appears to show no signs of diversion nor abuse potential. There monitored closely they are getting good reasonable pain control from the currently prescribed medication s. They are following the contractua l agreement with our practice. Chronic pain syndrome 37 0161515 G89.4 The patient is followed and monitored for chronic pain management with the use of chronic scheduled medication s. Screening appears to show no signs of diversion nor abuse potential. There monitored closely they are getting good reasonable pain control from the currently prescribed medication s. They are following the contractua l agreement with our practice. Restless legs 46401692 G 25.81 on follow-up Amanda is doing much better but she is doing 1 mg twice a day through the course of the day that she is doing 2 mg at bedtime which seems to have her much better controlled . Will go on and prescribed for her with the desire to to continue her same dosing Osteoporosis 18317195 M8 1.0 This represents a chronic process that has been stable on medication s for extended period of time. Currently there appears to be no toxicity or side effect and good response to treatment. For these reasons we will continue medication s as ordered. Sleep disorder 18370227 G47.01 This represents a chronic process that has been medically stable. Currently remains asymptomat ic, with no change in status, and no change in progressio n diagnostic ally or from a treatment standpoint . Moderate r ecurrent major depression 89904885 F33.1 Ongoing chronic treatment for major depressive disorder is reason for follow-up today. Patient states they are doing well, they perceive no side effect or negative issues with her current medication s. They perceive their mood to be well-adjus victoria, Chronic ly mphoid leukemia, disease 28646684 C91.10 This represents a chronic process that has been stable on medication s for extended period of time. Currently there appears to be no toxicity or side effect and good response to treatment. For these reasons we will continue medication s as ordered. Chronic lo ng term disease management required: complex needs 385216672 Z76.89 Today's visit is part of long-term chronic disease management as well as chronic wellness management . Ongoing efforts to consolidat e and optimize care is the goal at each visit. Today's visit includes the management of surveillan ce laboratory studies, discussion of their values if necessary, in addition to the interactio n of multiple comorbidit ies, allowing the necessary additional time required Standardiz ed adult depression screening tool completed [id number] 73231 Z13.31 Appropriat e age related, gender related, and health risk related parameters were addressed today recommenda tions were made for appropriat e wellness studies as indicated. [id number] MD QUIRINO Fragoso [facility] [address] [place] [address] 05/19/2024 14:03:47 05/19/2024 18:57:15 Chronic pain syndrome 541851344 G89.4 The patient is followed and monitored for chronic pain management with the use of chronic scheduled medication s. Screening appears to show no signs of diversion nor abuse potential. There monitored closely they are getting good reasonable pain control from the currently prescribed medication s. They are following the contractua l agreement with our practice. Recurrent herpes simplex labialis 094672349 B00.1 Issues relative to today's discussion and diagnosis were addressed. All questions were attempted to be addressed and reconciled . Any particular necessary informatio n was dispensed Postmenopausal state 764 82940 Z78.0 Issues relative to today's discussion and diagnosis were addressed. All questions were attempted to be addressed and reconciled . Any particular necessary informatio n was dispensed Neuropathy due to type 1 diabetes mellitus 230023883 E10.40 This represents a chronic process that has been stable on medication s for extended period of time. Currently there appears to be no toxicity or side effect and good response to treatment. For these reasons we will continue medication s as ordered. Fibromyalgia 885952048 M 79.7 The patient is followed and monitored for chronic pain management with the use of chronic scheduled medication s. Screening appears to show no signs of diversion nor abuse potential. There monitored closely they are getting good reasonable pain control from the currently prescribed medication s. They are following the contractua l agreement with our practice. Moderate r ecurrent major depression 70226796 F33.1 Ongoing chronic treatment for major depressive disorder is reason for follow-up today. Patient states they are doing well, they perceive no side effect or negative issues with her current medication s. They perceive their mood to be well-adjus [place], [id number] MD QUIRINO Fragoso [facility] [address] [place] [address] 06/16/2024 14:22:49 06/16/2024 15:48:05 Essential hypertension 56502502 I10 Patient returns today for follow-up of a chronic diagnosis of hypertensi on. Outpatient surveillan ce as demonstrat ed good control, without any issues or complaints of side effect. Neuropathy due to type 1 diabetes mellitus 014273673 E10.40 This represents a chronic process that has been stable on medication s for extended period of time. Currently there appears to be no toxicity or side effect and good response to treatment. For these reasons we will continue medication s as ordered. Chronic pain syndrome 37 4653785 G89.4 The patient is followed and monitored for chronic pain management with the use of chronic scheduled medication s. Screening appears to show no signs of diversion nor abuse potential. There monitored closely they are getting good reasonable pain control from the currently prescribed medication s. They are following the contractua l agreement with our practice. Fibromyalgia M 79.7 The patient is followed and monitored for chronic pain management with the use of chronic scheduled medication s. Screening appears to show no signs of diversion nor abuse potential. There monitored closely they are getting good reasonable pain control from the currently prescribed medication s. They are following the contractua l agreement with our practice. Moderate r ecurrent major depression [id number] F33.1 Ongoing chronic treatment for major depressive disorder is reason for follow-up today. Patient states they are doing well, they perceive no side effect or negative issues with her current medication s. They perceive their mood to be well-adjus Markus kessler ed adult depression screening tool completed [id number] 01222 Z13.31 Appropriat e age related, gender related, and health risk related parameters were addressed today recommenda tions were made for appropriat e wellness studies as indicated. Chronic ly mphoid leukemia, disease 82149187 C91.10 This represents a chronic process that has been stable on medication s for extended period of time. Currently there appears to be no toxicity or side effect and good response to treatment. For these reasons we will continue medication s as ordered. [id number] MD [facility] [address] [place] [address] 07/15/2024 14:08:40 07/15/2024 15:14:58 Administration of influenza vaccine [id number] Z23 Chronic pain syndrome 37 2901935 G89.4 The patient is followed and monitored for chronic pain management with the use of chronic scheduled medication s. Screening appears to show no signs of diversion nor abuse potential. There monitored closely they are getting good reasonable pain control from the currently prescribed medication s. They are following the contractua l agreement with our practice. Fibromyalgia 628307122 M 79.7 The patient is followed and monitored for chronic pain management with the use of chronic scheduled medication s. Screening appears to show no signs of diversion nor abuse potential. There monitored closely they are getting good reasonable pain control from the currently prescribed medication s. They are following the contractua l agreement with our practice. Neuropathy due to type 1 diabetes mellitus 776071980 E10.40 This represents a chronic process that has been stable on medication s for extended period of time. Currently there appears to be no toxicity or side effect and good response to treatment. For these reasons we will continue medication s as ordered. Chronic ly mphoid leukemia, disease 69815601 C91.10 This represents a chronic process that has been stable on medication s for extended period of time. Currently there appears to be no toxicity or side effect and good response to treatment. For these reasons we will continue medication s as ordered. Essential hypertension 02366913 I10 Patient returns today for follow-up of a chronic diagnosis of hypertensi on. Outpatient surveillan ce as demonstrat ed good control, without any issues or complaints of side effect. Moderate r ecurrent major depression 87901781 F33.1 Ongoing chronic treatment for major depressive disorder is reason for follow-up today. Patient states they are doing well, they perceive no side effect or negative issues with her current medication s. They perceive their mood to be well-adjus Markus kessler ed adult depression screening tool completed [id number] 12347 Z13.31 Appropriat e age related, gender related, and health risk related parameters were addressed today recommenda tions were made for appropriat e wellness studies as indicated. Sleep disorder 30433057 G47.01 This represents a chronic process that has been medically stable. Currently remains asymptomat ic, with no change in status, and no change in progressio n diagnostic ally or from a treatment standpoint . [id number] MD [facility] [address] [place] [address] 08/19/2024 08:57:37 08/19/2024 10:28:14 Mixed hyperlipidemia 678443424 E78.2 Patient returns for follow-up appointmen t today relative to a diagnosis of hyperlipid emia and treatment for such. Updated laboratory studies are being used relative to appropriat e treatment. Patient voices no side effect/mus cular complaints muscle weakness. Hypomagnesemia 912660080 E83.42 Surveillan ce laboratory studies have been ordered to assess for the target of treatment as well as any potential end-organ toxicity. Chronic ki dney disease stage 3A 996455344 N18.32 This represents a chronic process that has been medically stable. Currently remains asymptomat ic, with no change in status, and no change in progressio n diagnostic ally or from a treatment standpoint . she has no evidence of nephropath y this is likely just age-relate d decrease in function. Neuropathy due to type 1 diabetes mellitus 424987430 E10.40 This represents a chronic process that has been stable on medication s for extended period of time. Currently there appears to be no toxicity or side effect and good response to treatment. For these reasons we will continue medication s as ordered. Essential hypertension 31448558 I10 Patient returns today for follow-up of a chronic diagnosis of hypertensi on. Outpatient surveillan ce as demonstrat ed good control, without any issues or complaints of side effect. Moderate r ecurrent major depression 93827507 F33.1 Ongoing chronic treatment for major depressive disorder is reason for follow-up today. Patient states they are doing well, they perceive no side effect or negative issues with her current medication s. They perceive their mood to be well-adjus victoria, Complicati on due to diabetes mellitus 74051756 E11.69 Patient comes in today for follow-up of diabetes mellitus with multiple comorbidit ies that will be addressed further in the noted problem list. Reported random blood sugars suggest current status of diabetes appears to be reasonably well controlled with no with this for significan t hypoglycem ia etc. Osteoporosis 11480869 M8 1.0 This represents a chronic process that has been stable on medication s for extended period of time. Currently there appears to be no toxicity or side effect and good response to treatment. For these reasons we will continue medication s as ordered. Restless legs 42836264 G 25.81 on follow-up Amanda is doing much better but she is doing 1 mg twice a day through the course of the day that she is doing 2 mg at bedtime which seems to have her much better controlled . Will go on and prescribed for her with the desire to to continue her same dosing Sleep disorder 55175696 G47.01 This represents a chronic process that has been medically stable. Currently remains asymptomat ic, with no change in status, and no change in progressio n diagnostic ally or from a treatment standpoint . Standardiz ed adult depression screening tool completed [id number] 24361 Z13.31 Appropriat e age related, gender related, and health risk related parameters were addressed today recommenda tions were made for appropriat e wellness studies as indicated. Chronic pain syndrome 37 2997983 G89.4 The patient is followed and monitored for chronic pain management with the use of chronic scheduled medication s. Screening appears to show no signs of diversion nor abuse potential. There monitored closely they are getting good reasonable pain control from the currently prescribed medication s. They are following the contractua l agreement with our practice. Chronic ly mphoid leukemia, disease 13897547 C91.10 This represents a chronic process that has been stable on medication s for extended period of time. Currently there appears to be no toxicity or side effect and good response to treatment. For these reasons we will continue medication s as ordered. Fibromyalgia 760003500 M 79.7 The patient is followed and monitored for chronic pain management with the use of chronic scheduled medication s. Screening appears to show no signs of diversion nor abuse potential. There monitored closely they are getting good reasonable pain control from the currently prescribed medication s. They are following the contractua l agreement with our practice. [id number] MD [facility] [address] [place] [address] 02/15/2025 14:00:30 02/15/2025 14:51:18 Mixed hyperlipidemia 542372423 E78.2 Patient returns for follow-up appointmen t today relative to a diagnosis of hyperlipid emia and treatment for such. Updated laboratory studies are being used relative to appropriat e treatment. Patient voices no side effect/mus cular complaints muscle weakness. Essential hypertension 47829489 I10 Patient returns today for follow-up of a chronic diagnosis of hypertensi on. Outpatient surveillan ce as demonstrat ed good control, without any issues or complaints of side effect. Neuropathy due to diabetes mellitus 570997903 E10.40 Long-term current use of drug therapy 172449735 Z79.899 Narcotic drug user 36145 002 F11.90 Chronic ki dney disease stage 3A 236536473 N18.32 This represents a chronic process that has been medically stable. Currently remains asymptomat ic, with no change in status, and no change in progressio n diagnostic ally or from a treatment standpoint . she has no evidence of nephropath y this is likely just age-relate d decrease in function. Osteoporosis 99378567 M8 1.0 This represents a chronic process that has been stable on medication s for extended period of time. Currently there appears to be no toxicity or side effect and good response to treatment. For these reasons we will continue medication s as ordered. Moderate r ecurrent major depression 87734840 F33.1 Ongoing chronic treatment for major depressive disorder is reason for follow-up today. Patient states they are doing well, they perceive no side effect or negative issues with her current medication s. They perceive their mood to be well-adjus victoria, Chronic pain syndrome 37 9654406 G89.4 The patient is followed and monitored for chronic pain management with the use of chronic scheduled medication s. Screening appears to show no signs of diversion nor abuse potential. There monitored closely they are getting good reasonable pain control from the currently prescribed medication s. They are following the contractua l agreement with our practice. Chronic ly mphoid leukemia, disease 61725813 C91.10 This represents a chronic process that has been stable on medication s for extended period of time. Currently there appears to be no toxicity or side effect and good response to treatment. For these reasons we will continue medication s as ordered. Standard ed adult depression screening tool completed [id number] 17594 Z13.31 Appropriat e age related, gender related, and health risk related parameters were addressed today recommenda tions were made for appropriat e wellness studies as indicated. Fibromyalgia 074849284 M 79.7 The patient is followed and monitored for chronic pain management with the use of chronic scheduled medication s. Screening appears to show no signs of diversion nor abuse potential. There monitored closely they are getting good reasonable pain control from the currently prescribed medication s. They are following the contractua l agreement with our practice. Restless legs 84288717 G 25.81 on follow-up Amanda is doing much better but she is doing 1 mg twice a day through the course of the day that she is doing 2 mg at bedtime which seems to have her much better controlled . Will go on and prescribed for her with the desire to to continue her same dosing Sleep disorder 46741889 G47.01 This represents a chronic process that has been medically stable. Currently remains asymptomat ic, with no change in status, and no change in progressio n diagnostic ally or from a treatment standpoint . Health Concerns Section Related Observation LastModified by Organization Detai ls LastModified Time None Recorded Concern Status LastModified by Organization Details LastModified Time None Recorded Advance Directives Directive Y: Payers Insurance Date Sequence Insurance Name Policy Number Policy Peña Covered Member ID Peña Member ID Guarantor Name 02/12/2025 2 [facility] [id number] [place] Peraza [id number] Amanda Peraza 02/12/2025 1 [place]ICARE[place] Amanda Peraza [id number] Amanda Peraza Notes Date Note Type Note Provider Name and Address Organization Details Recorded Time 4 text/html Pain Management F/UReported bypatient.Location:upper back bilateral; lower back bilateral; hip bilateral Quality:dull; aching Severity:unchanged; Continue stable with current medication management Duration:is a chronic issue that extends over now years of management with various medication and manipulative approaches. Context:overuse; pain medication use; prior specialist evaluation; previous MRI; osteoarthritis Alleviating Factors:medication; exercise; stretching Associated Symptoms:numbness;tingli ng; Which are intermittent in the affected areas but for the most part well controlled with current medications allowing patient to be at functional level Activities of Daily Living:there is limited affect on activities of daily living with current medication regime. Driving Impairments With Medications:noNotes:Medi cation schedule associated with caution with use of medications when working with heavy equipment or necessary motor vehicle use. Today's visit also will address any chronic disease management with other comorbidities. Tod Guerra MD [address], [place], [address], [facility] & [place] 05/19/2024 14:57:22 4 text/html DiabetesReported bypatient.Review finger sticks:fasting: Duration:chronic Control:usually well controlled Compliance:compliant with medications; compliant with follow-up visits; compliant with diet; compliant with home glucose monitoring Self Care:seeing eye doctor regularly; checking feet regularly Associated Symptoms:no increased thirst; no increased appetite Chronic Complications:diabetic neuropathy: Yes; diabetic nephropathy: Yes; hypertension: Yes; hyperlipidemia: Yes Comorbidities:coronary artery disease: No; claudications/peripheral vascular disease: NoHypertension F/UReported bypatient.Medications:ta dasha medications as directed; no side effects from medication Lifestyle:limits sodium intake Associated Symptoms:no dizziness; no lightheadedness; no chest pain; no shortness of breath; no calf pain with exertionNotes:No coughMoodReported bypatient.Affect:normal affect; not tearful Sleep:normal sleep Appetite:normal Weight:no unintentional weight change Mood Variability:not depressed Concentration/Attention: unchanged [place]: ability to enjoy life, sports, activitiesunchanged Malaise: energy levels, motivation, driveunchanged Social Interest:unchanged Sex Drive:unchangedNotes:ove rall mood is stable. No issues with side effects from current medications. Today's visit will also include Co management of other associated comorbidities if necessary as addressed in the assessment and plan.ThyroidReported bypatient.Severity:Follo w up visit for chronic hypothyroidism Duration:constant Onset/Timing:Asymptomati c, no complaints Context:no history of head or neck radiation during childhood Associated Symptoms:no cold intolerance; no heat intolerance; no weight loss; no weight gain; no double vision; no dry eyes; no hoarseness; no difficulty swallowing; no neck masses; no deepening of the voiceNotes:Additional reason for visit is for chronic disease management including other associated comorbidities As outlined in the assessment and plan. Additional reasons for visit includes Co management of any other associated comorbidities related to chronic disease management, as will be outlined in the assessment and plan. Tod Guerra MD [address], [place], [address], [facility] [place] & [place] 06/16/2024 16:36:38 4 text/html MoodReported bypatient.Affect:normal affect; not tearful Sleep:normal sleep Appetite:normal Weight:no unintentional weight change Mood Variability:not depressed Concentration/Attention: unchanged [place]: ability to enjoy life, sports, activitiesunchanged Malaise: energy levels, motivation, driveunchanged Social Interest:unchanged Sex Drive:unchangedNotes:ove rall mood is stable. No issues with side effects from current medications. Today's visit will also include Co management of other associated comorbidities if necessary as addressed in the assessment and plan.Pain Management F/UReported bypatient.Location:upper back bilateral; lower back bilateral; hip bilateral Quality:dull; aching Severity:unchanged; Continue stable with current medication management Duration:is a chronic issue that extends over now years of management with various medication and manipulative approaches. Context:overuse; pain medication use; prior specialist evaluation; previous MRI; osteoarthritis Alleviating Factors:medication; exercise; stretching Associated Symptoms:numbness;tingli ng; Which are intermittent in the affected areas but for the most part well controlled with current medications allowing patient to be at functional level Activities of Daily Living:there is limited affect on activities of daily living with current medication regime. Driving Impairments With Medications:noNotes:Medi cation schedule associated with caution with use of medications when working with heavy equipment or necessary motor vehicle use. Today's visit also will address any chronic disease management with other comorbidities. Additional reasons for visit includes Co management of any other associated comorbidities related to chronic disease management, as will be outlined in the assessment and plan. Tod Guerra MD [address], [place], [address], [place] [facility] [place] 07/15/2024 16:17:01 4 text/html DiabetesReported bypatient.Review finger sticks:fasting: Duration:chronic Control:usually well controlled Compliance:compliant with medications; compliant with follow-up visits; compliant with diet; compliant with home glucose monitoring Self Care:seeing eye doctor regularly; checking feet regularly Associated Symptoms:no increased thirst; no increased appetite Chronic Complications:diabetic neuropathy: Yes; diabetic nephropathy: Yes; hypertension: Yes; hyperlipidemia: Yes Comorbidities:coronary artery disease: No; claudications/peripheral vascular disease: NoHypertension F/UReported bypatient.Medications:ta dasha medications as directed; no side effects from medication Lifestyle:limits sodium intake Associated Symptoms:no dizziness; no lightheadedness; no chest pain; no shortness of breath; no calf pain with exertionNotes:No coughMoodReported bypatient.Affect:normal affect; not tearful Sleep:normal sleep Appetite:normal Weight:no unintentional weight change Mood Variability:not depressed Concentration/Attention: unchanged [place]: ability to enjoy life, sports, activitiesunchanged Malaise: energy levels, motivation, driveunchanged Social Interest:unchanged Sex Drive:unchangedNotes:ove rall mood is stable. No issues with side effects from current medications. Today's visit will also include Co management of other associated comorbidities if necessary as addressed in the assessment and plan.ThyroidReported bypatient.Severity:Follo w up visit for chronic hypothyroidism Duration:constant Onset/Timing:Asymptomati c, no complaints Context:no history of head or neck radiation during childhood Associated Symptoms:no cold intolerance; no heat intolerance; no weight loss; no weight gain; no double vision; no dry eyes; no hoarseness; no difficulty swallowing; no neck masses; no deepening of the voiceNotes:Additional reason for visit is for chronic disease management including other associated comorbidities As outlined in the assessment and plan. Additional reasons for visit includes Co management of any other associated comorbidities related to chronic disease management, as will be outlined in the assessment and plan. Tod Guerra MD [address], [place], [address], [facility] 08/19/2024 10:22:56 5 text/html DiabetesReported bypatient.Review finger sticks:fasting: Duration:chronic Control:usually well controlled Compliance:compliant with medications; compliant with follow-up visits; compliant with diet; compliant with home glucose monitoring Self Care:seeing eye doctor regularly; checking feet regularly Associated Symptoms:no increased thirst; no increased appetite Chronic Complications:diabetic neuropathy: Yes; diabetic nephropathy: Yes; hypertension: Yes; hyperlipidemia: Yes Comorbidities:coronary artery disease: No; claudications/peripheral vascular disease: NoHypertension F/UReported bypatient.Medications:ta dasha medications as directed; no side effects from medication Lifestyle:limits sodium intake Associated Symptoms:no dizziness; no lightheadedness; no chest pain; no shortness of breath; no calf pain with exertionNotes:No coughMoodReported bypatient.Affect:normal affect; not tearful Sleep:normal sleep Appetite:normal Weight:no unintentional weight change Mood Variability:not depressed Concentration/Attention: unchanged [place]: ability to enjoy life, sports, activitiesunchanged Malaise: energy levels, motivation, driveunchanged Social Interest:unchanged Sex Drive:unchangedNotes:ove rall mood is stable. No issues with side effects from current medications. Today's visit will also include Co management of other associated comorbidities if necessary as addressed in the assessment and plan.ThyroidReported bypatient.Severity:Follo w up visit for chronic hypothyroidism Duration:constant Onset/Timing:Asymptomati c, no complaints Context:no history of head or neck radiation during childhood Associated Symptoms:no cold intolerance; no heat intolerance; no weight loss; no weight gain; no double vision; no dry eyes; no hoarseness; no difficulty swallowing; no neck masses; no deepening of the voiceNotes:Additional reason for visit is for chronic disease management including other associated comorbidities As outlined in the assessment and plan. Additional reasons for visit includes Co management of any other associated comorbidities related to chronic disease management, as will be outlined in the assessment and plan. Tod Guerra MD [address] [place] [address],[address], [place], [address], [facility] 02/15/2025 14:58:34 OBGyn Episode No OBEpisode recorded.
--- OUTSIDE RECORDS SUMMARY | 2025-04-05 11:14 | XMS_ITS | Continuity of Care Document ---
Author Organization [place] [facility] & [facility] Address [address] [place] [address] Care Team Providers Care Horse Breeder Name Role Phone TOD GUERRA Primary Care Provider [phone] [facility] DIABETES AND ENDOCRINOLOGY PEDIATRICS Diabetes Education VIDYA MALAVE Manager Strategic Marketing PANDA MACHUCA Dentist BEE LOMBARDO Aoc Director Combat Operations Officer [facility] Hematology/Oncology [phone] LUIS FERNANDO GIRALDO Call Center Dispatcher Assessment No assessment recorded. Plan of Treatment Reminders Order Date Submit Date Provider Last Modified By Organization Details Last Modified Time Details Appointments 6 MONTH FU 15 2024 02:15P M Tod Jimenez rd, MD Not available Not available Not available Lab lipid panel, serum 2024 025 PATEL [facility], [address], [address], [place], [address], 02/22/2025 15:20:59 CBC w/ auto diff 2024 025 PATEL [facility], [address], [place] [address], [place], [address], 02/22/2025 15:20:56 unlisted lab - toxassure select 13 2024 025 PATEL [facility], [address], [address] F, [place], [address], 02/22/2025 15:20:54 CMP, serum or plasma 2024 025 [facility]EL [facility], [address], James F, [place], [address], 02/22/2025 15:20:57 magnesium , serum or plasma 2024 025 PATEL [facility], [address], James F, [place], [address], 02/22/2025 15:21:04 HbA1c (hemoglob in A1c), blood 2024 025 [facility], [address], James F, [place], [address], 02/22/2025 15:21:03 cobalamin and folate panel, serum 2024 025 PATEL [facility], [address], James F, [place], [address], 02/22/2025 15:21:02 microalbu min/creat inine, mass ratio, urine 2024 025 [facility], [address], James F, [place], [address], 02/22/2025 15:21:00 Referral None recorded. Procedures None recorded. Surgeries None recorded. Imaging None recorded. Medication Orders cyclobenz aprine 10 mg tablet 2024 [facility], [address], [id number], 02/15/2025 14:56:05 pravastat in 40 mg tablet 2024 [facility], [address], [id number], 02/15/2025 14:56:04 zolpidem ER 12.5 mg tablet,ex tended release,m ultiphase 2024 025 [facility] #66474, [address], [id number], 02/15/2025 14:56:09 ropinirol e 1 mg tablet 2024 025 [facility] #30871, [address] [place] [address], [id number], 02/15/2025 14:56:06 Xanax 1 mg tablet 2024 025 [facility] #81008, [address], [id number], 02/15/2025 14:56:11 Pristiq 100 mg tablet,ex tended release 2024 025 [facility] #80071, [address] [place] [address], [id number], 02/15/2025 14:56:02 lamotrigi ne 200 mg tablet 2024 025 [facility] #14397, [facility] [address], [id number], 02/15/2025 14:56:03 amlodipin e 5 mg tablet [email or web address] [facility] #97922, [address] [place] [address], [id number], 02/15/2025 14:56:46 potassium chloride ER 10 mEq capsule,e xtended release 2024 025 [facility] #37636, [address] [place] [address], [id number], 02/15/2025 14:56:06 valsartan 320 mg tablet 2024 025 [facility]37307, [address], [id number], 02/15/2025 14:56:07 Neurontin 300 mg capsule 2024 025 [place] [facility] [facility] #22074, [address], [id number], 02/15/2025 14:56:10 Patient TargetsNo targets recorded. Patient InstructionsNo instructions recorded. Reason for Referral None Reported. Results Created Date Observation Date Name Description Value Unit Range Abnormal Flag Note LastModifiedBy Organization Detail LastModifiedTime 02/16/2002/14/2025 DEXA, axial skele ton + verte bral fract ure asses sment [facility] Name: AMANDA VILLALBA [facility] [employer] Phys: Payton [place], [place] [address] : 1959 Age: 64 Sex: F Acct: [id number] Loc: KEENAN PHONE #: [phone] Exam Date: 2024 Status : DEP CLI FAX #: Rad# [id number] Unit# [id number] Admit Date: 2024 EXAMS: CPT CODE: [id number] DEXA BONE DENSIT Y WITH VFA 69599 EXAMIN ATION: DUAL X-RAY ABSORP TIOMET RY (DXA) FOR BONE MINERA L DENSIT Y. CLINIC AL INDICA TION: 64 years old, Female . Postme nalini cassidy. Z78.0. TECHNI QUE: An axial (e.g., hips, spine) and/or append icular (e.g., radius ) exam was perfor med, as approp riate, using [employer] y densit ometer . Images are [...] perfor med using the [employer] FRAX calcul ator based on patien t-repo rted risk factor s. Major osteop orotic fractu re: 32.1%. Hip fractu re: 5.3%. VERTEB RAL FRACTU RE ASSESS MENT: Verteb ral fractu re assess ment from T5-L4 is perfor med using [employer] visual semi-q uantit ative method . No fractu re is identi fied. PAGE 1 Signed Report (LE NUED) [facility] Name: AMANDA VILLALBA [facility] Phys: [place], [place] [address] : 1959 Age: 64 Sex: F Acct: [id number] Loc: AlhajiRAD PHONE #: Exam Date: 2024 Status : DEP CLI FAX #: Rad# [id number] Unit# [id number] Admit Date: 2024 EXAMS: CPT CODE: [id number] DEXA BONE DENSIT Y WITH VFA 27855 IMPRES TERESO: Osteop enia of the hips based on BMD. World Health Organi zation criter ia for BMD impres tereso classi fy patien ts as: - Normal [...] treatm ent can be found at the [facility] t[facility]'s websit [...] ARHWRS 15PRR PAGE 2 Signed Report (LE NUED) [facility] Name: AMANDA VILLALBA [address] Phys: Payton urena MD, [place] [address] : 1959 Age: 64 Sex: F Acct: [id number] Loc: G.RAD PHONE #: Exam Date: 2024 Status : DEP CLI FAX #: Rad# [id number] Unit# [id number] Admit Date: 2024 EXAMS: CPT CODE: [id number] DEXA BONE DENSIT Y WITH VFA 00362 Electr onical ly Signed by PONCHO GARIBAY on 2024 at 1908 Report ed and signed by: Delfin GARIBAY CC: Tod urena MD Dictat ed Date/T rafael: 2024 (1907) Techno logist : NOAH Caldwell RT(R)( CT) Transc ribed Date/T rafael: 2024 (1907) Transc riptio nist: DR.BAT FUNES Electr onic Signat ure Date/T rafael: 2024 (1907) Printe d Date/T rafael: 2024 (1599) BATCH NO: N/A PAGE 3 Signed Report CC'ed Logic: Orderi ng Provid er: PAYTON BARON Attend ing Provid er: PAYTON BARON Referr ing Provid er: PAYTON BARON Consul ting Provid er: PAYTON BARON [email or web address] [address] , [place], [address], 02/15/2025 17:14:31 03/28/20 25 03/28/2025 MAMMO , kevan foster, digit al, bilat eral [facility] Name: AMANDA VILLALBA [address] [place], [place] [address]a [facility] [address] Phys: Payton urena MD, [place] [address] : 1959 Age: 64 Sex: F Acct: [id number] Loc: G.MAMM PHONE #: Exam Date: 2024 Status : REG CLI FAX #: [phone] Rad# [id number] Unit# [id number] Admit Date: 2024 EXAMS: CPT CODE: [id number] SCN DIG BREAST TOMOSY N VASQUEZ 80668 EXAMIN ATION: SCN DIG BREAST TOMOSY N VASQUEZ HISTOR Y: SCREEN ING COMPAR ALEX:P riors dating back to 2020 TECHNI QUE: CC and MLO with 3-D tomosy nthesi s and synthe sized 2-D. The images were interp reted with the aid of [employer] Aided Detect ion System . FINDIN GS: COMPOS ITION: The breast s are extrem ken dense, which lowers the sensit ivity of mammog eber. There is a group of calcif icatio n in the left breast 6:00 axis. Magnif icatio n views recomm ended. No suspic ious mass, yodit ectura l distor tion, or suspic ious microc alcifi cation s in the right. IMPRES TERESO: Calcif icatio n in the left breast [...] rafael: 2024 (2023) Techno logist : JAIDA STOUT RT(R)( M)(CT) (MR) Transc ribed Date/T rafael: 2024 (2023) Transc riptio nist: DR.NAS GUAMAN Electr onic Signat ure Date/T rafael: 2024 (2023) Printe d Date/T rafael: 2024 (2030) BATCH NO: N/A PAGE 1 Signed Report CC'ed Logic: Orderi ng Provid er: PAYTON BARON Attend ing Provid er: PAYTON BARON Referr ing Provid er: PAYTON BARON Consul ting Provid er: PAYTON BARON [address] [place], [address], 03/29/2025 14:18:06 Result Notes Documentation Provider Name and Address Organization Details Recorded Time Dexa, Axial Skeleton + Vertebral Fracture Assessment : [facility] Ce Name: AMANDA PERAZA [address] [place] [address] Phys: [place] [address] : 1960 Age: 64 Sex: F Acct: [id number] Loc: AlhajiRAD PHONE #: Exam Date: 02/14/2025 Status: DEP CLI FAX #: Rad# [id number] Unit# [id number] Admit Date: 02/14/2025 EXAMS: CPT CODE: [id number] DEXA BONE DENSITY WITH VFA 01136 EXAMINATION: DUAL X-RAY ABSORPTIOMETRY (DXA) FOR BONE MINERAL DENSITY. CLINICAL INDICATION: 64 years old, Female. Postmenopausal. Z78.0. TECHNIQUE: An axial (e.g., hips, spine) and/or appendicular (e.g., radius) exam was performed, as appropriate, using [employer] densitometer. Images are obtained for bone mineral [...] is identified. PAGE 1 Signed Report (CONTINUED) [facility] Ce Name: AMANDA PERAZA [address] [place] [address] Phys: Mari KRAFT, [place] [address] : 1960 Age: 64 Sex: F Acct: [id number] Loc: KEENAN PHONE #: Exam Date: 02/14/2025 Status: DEP CLI FAX #: Rad# [id number] Unit# [id number] Admit Date: 02/14/2025 EXAMS: CPT CODE: [id number] DEXA BONE DENSITY WITH VFA 13698 IMPRESSION: Osteopenia of the hips based on [...] have additional risk factors. Electronically signed by: Ollie Garibay MD 02/15/2025 03:57 PM EDT PAGE 2 Signed Report (CONTINUED) [facility] Name: AMANDA PERAZA Mai [address] [place] [address] Phys: Mari KRAFT, [place] [address] : 1960 Age: 64 Sex: F Acct: [id number] Loc: KEENAN PHONE #: Exam Date: 02/14/2025 Status: DEP CLI FAX #: Rad# [id number] Unit# [id number] Admit Date: 02/14/2025 EXAMS: CPT CODE: [id number] DEXA BONE DENSITY WITH VFA 55396 at 1908 Reported and signed by: OLLIE GARIBAY CC: Tod Guerra MD Dictated Date/Time: 02/14/2025 (1907) Technologist: NOAH PAYTON RT(R)(CT) Transcribed Date/Time: 02/14/2025 (1907) Director Of Informatics: Electronic Signature Date/Time: 02/14/2025 (190) Printed Date/Time: 02/15/2025 (1600) BATCH NO: N/A PAGE 3 Signed Report CC'ed Logic: Ordering Provider: MARI BARON Attending Provider: MARI BARON Referring Provider: MARI BARON Consulting Provider: MARI Espinosa null, [place] [facility] [place] [facility] [place] 02/15/2025 17:14:31 Problems Name Problem SNOMED Code Status Onset Date Resolution Date Notes Provider Name and Address Organization Details Recorded Time 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 abhinavvinnie clark null, [place] [facility] [place] 2 14:08:28 Essential hypertensio n 28077495 Active 2021 abhinav bargerur null, [place] [facility] 2 14:09:07 Sleep disorder 42903474 Active 2021 abhinav amber null, [place] [facility] 2 14:09:37 Restless legs 54176064 Active 2021 abhinav amber null, [place] [facility] 2 14:10:09 Osteoporosi s 40765530 Active 2021 abhinav amber null, [place] [facility] 2 14:10:24 Chronic pain syndrome 835013808 Active Rebecca Espinosa null, [place] [facility] 2 15:23:17 Chronic lymphoid leukemia, disease 08542757 Active [address], MD [address] [place] [address], [phone] [facility] [place] [facility] 3 14:48:51 Moderate recurrent major depression 81099135 Active [address], MD [address] [place] [address],[place]abel te [address] [place] [address], [phone], [place] [facility] [place] & [place] 3 14:48:50 Chronic kidney disease stage 3A 622324572 Active [address], MD [address] [place] [address],[facility] te [address] [place] [address], [phone], [place] [facility] [place] 3 14:48:51 Mixed hyperlipide roula 875924938 Active [address], MD [address] [place] [address],[place] te [address] [place] [address], [phone], [place] [facility] & [place] 3 09:38:41 Adult health examination Active [address], MD [address] [place] [address],Mabel te [facility], [place], [phone], [place] [facility] & [place] 3 16:06:13 Advance care planning Active [address], MD [address] [place] [address],[place]abel te [address] [place] [address], [phone], [place] [facility] & [place] 3 16:06:15 Standardize d adult depression screening tool completed 9095088318190 07 Active [address], MD [address] [place] [address],[place]abel te [address] [place] [address], [phone], [place] [facility] [place] 3 16:06:17 Problem Notes None recorded. Procedures Surgical History Date Name Laterality Status Provider Name and Address Organization Details Recorded Time 10/13/19 15 Other completed Milady cartwright [place] [facility] [place] & [place] 07/02/2023 09:18:07 10/13/19 13 Other completed Milady cartwright [place] [facility] [place] 07/02/2023 09:18:07 10/13/19 06 operative procedure on knee completed abhinav amber [place] - [facility] - [place] & [place] 07/10/2022 14:31:21 10/13/19 04 operative procedure on knee completed abhinav amber [place] [facility] [place] & [place] 07/10/2022 14:31:07 10/13/19 00 Other completed Milady Garza s [facility] - [facility] - [place] & [place] 07/02/2023 09:18:07 10/13/19 00 hysterectomy completed abhinav amber [place] - [facility] - [place] & [place] 07/10/2022 14:30:53 10/13/18 80 Other completed Milady Garza s [facility] - [facility] - [place] & [place] 07/02/2023 09:18:07 10/13/18 80 operation on facial joint completed abhinav amber JU[place] - [facility] - [place] & [place] 07/10/2022 14:30:40 10/13/18 68 Tonsillectomy/Stefania noidectomy completed Milady Garza s [facility] - [facility] - [place] & [place] 07/02/2023 09:18:07 10/13/18 68 tonsillectomy completed abhinav amber [facility] - [facility] - [place] & [place] 07/10/2022 14:30:21 Imaging Results None recorded. Procedure [...] Relief 50 mcg/actuat ion nasal spray,susp ension [place] 1 spray every day by intranasa l [...] and Address Organization Details Last Updated DateTime 175.26 cm 22 kg/m2 20121.2 6 g 98.1 [degF] 98 % 98 % 72 /min 18 /min 138 mm[Hg] 70 mm[Hg] Amanda Perla [facility] & [place] 14:29:03 Social History Question Answer Notes LastModified by Organizat ion Details LastModified Time Tobacco Smoking Status Current Every Day Smoker abhinav amber hernandez, [facility] & [place] 11/06/2022 14:11:30 Do You Have An Advance Directive? Yes Information not available 07/02/2023 Do You Wear A Helmet When Biking? No N/A Information not available 08/04/2023 Are You Blind Or Do You Have Difficulty Seeing? No Information not available 07/02/2023 Is Blood Transfusion Acceptable In An Emergency? Yes [email or web address] Information not available 08/04/2023 What Is Your Level Of Caffeine Consumption? Occasional Information not available 07/02/2023 In The 14 Days Before Symptom Onset, Have You Had Close Contact With A Laboratory-confir med COVID-19 While That Case Was Ill? No Information not available 08/04/2023 In The 14 Days Before Symptom Onset, Have You Had Close Contact With A Person Who Is Under Investigation For COVID-19 While That Person Was Ill? No [email or web address] Information not available 08/04/2023 Have You Been To An Area Known To Be High Risk For COVID-19? No [email or web address] Information not available 08/04/2023 Are You Deaf Or Do You Have Serious Difficulty Hearing? No [email or web address] Information not available 08/04/2023 What Type Of Diet Are You Following? DIABETIC [email or web address] Information not available 08/04/2023 Have You Processed Blood Or Body Fluids From An Ebola Virus Disease Patient Without Appropriate PPE? No [email or web address] Information not available 08/04/2023 Do You Reside In Or Have You Traveled To An Area Where Ebola Virus Transmission Is Active? No [email or web address] Information not available 08/04/2023 How Many Days Of Moderate To Strenuous Exercise, Like A Brisk Walk, Did You Do In The Last 7 Days? 1 [email or web address] Information not available 08/04/2023 On Those Days That You Engage In Moderate To Strenuous Exercise, How Many Minutes, On Average, Do You Exercise? 20 Information not available 08/04/2023 Have There Been Any Changes To Your Family Or Social Situation? No Information no t available 08/04/2023 What Is The Fluoride Status Of Your Home? Unknown [email or web address] Information not available 08/04/2023 Are There Any Guns Present In Your Home? No [email or web address] Information not available 08/04/2023 Have You Recently Or Are You Planning To Travel To An Area With Zika Virus? No Information not available 08/04/2023 Do You Use Insect Repellent Routinely? No [email or web address] Information not available 08/04/2023 In General, Would You Say Your Health Is Good [email or web address] Information not available 08/04/2023 How Would You Describe The Condition Of Your Mouth And Teeth including False Teeth Or Dentures? Fair [email or web address] Information not available 08/04/2023 In The Past 7 Days, How Many Servings Of Fruits And Vegetables Did You Typically Eat Each Day? (1 Serving = 1 Cup Of Fresh Vegetables, 1 2 Cup Of Cooked Vegetables, Or 1 Medium Piece Of Fruit. 1 Cup = Size Of A Baseball.) 3-4 Servings Per Day [email or web address] Information not available 08/04/2023 In The Past 7 Days, How Many Servings Of High Fiber Or Whole Grain Foods Did You Typically Eat Each Day? (1 Serving = 1 Slice Of 100% Whole Wheat Bread, 1 Cup Of Whole-grain Or High-fiber Cuhmi-mh-xma Cereal, 1 2 Cup Of Cooked Cereal Such As Oatmeal, Or 1 2 Cup Of Cooked Brown Rice Or Whole Wheat Pasta.) 1-2 Servings Per Day [email or web address] Information not available 08/04/2023 In The Past 7 Days, How Many Servings Of Fried Or High-fat Foods Did You Typically Eat Each Day? (Examples Include Fried Chicken, Fried Fish, Cr, [place], Potato Chips, [place] Chips, Doughnuts, Creamy Salad Dressings, And Foods Made With Whole Milk, Cream, Cheese, Or Mayonnaise.) 0 Servings Per Day vyhrhno40 Information not available 08/04/2023 In The Past 7 Days, How Many Sugar-sweetened (not Diet) Beverages Did You Typically Consume Each Day 0 Drinks Per Day hnjautq67 Information not available 08/04/2023 Each Night, How Many Hours Of Sleep Do You Usually Get? 7-8 Hours [email or web address] Information not available 08/04/2023 Do You Snore Or Has Anyone Told You That You Snore? No ogiyqmj81 Information not available 08/04/2023 In The Past 7 Days, How Often Have You [place] Sleepy During The Daytime? Sometimes rnbjpro74 Information not available 08/04/2023 Do You Have Chronic Pain? Yes hrnpkep02 Information not available 08/04/2023 If Yes, Location Of Pain All Over mugsove46 Information not available 08/04/2023 In The Past 7 Days, How Would You Rate Your Pain? Moderate Pain(4-6) orqxthh31 Information not available 08/04/2023 Are You In A Pain Management Program? Yes [email or web address] Information not available 08/04/2023 Do You Take Opioids For Your Pain? Yes Information not available 08/04/2023 How Often Is Stress A Problem For You In Handling Such Things As: Your Health, Your Finances, Your Family And Social Relationships, Your Work? Never Or Rarely Information not available 08/04/2023 How Often Do You Get The Social And Emotional Support You Need: Sometimes daqaddt31 Information no t available 08/04/2023 In The Past 7 Days, Did You Need Help From Others To Take Care Of Things Such As Laundry And Housekeep- Ing, Banking, Shopping, Using The Telephone, Food Preparation, Transportation, Or Taking Your Own Medications? No kyksrmv95 Information not available 08/04/2023 Do You Live Alone? No [email or web address] Information not available 08/04/2023 Does Your Home Have Any Fall Risks (un-level Floors, Unfastened Rugs, Poor Lighting, Etc)? No [email or web address] Information not available 08/04/2023 What Was The Date Of Your Most Recent Tobacco Screening? 08/04/2023 [email or web address] Information not available 08/04/2023 How Many Children Do You Have? 0 vbdtzfa99 Information not available 08/04/2023 What Is Your Current Pack Years? 30ormorehaydear s ipjtpzw99 Information not available 08/04/2023 Do You Have Any Pets? No Information not available 08/04/2023 What Is Your Relationship Status? [email or web address] Information not available 08/04/2023 Do You Use Your Seat Belt Or Car Seat Routinely? Yes [email or web address] Information not available 08/04/2023 Are You Sexually Active? No usuenrf04 Information not available 08/04/2023 Do You Have Smoke And Carbon Monoxide Detectors In Your Home? No eppjtlh31 Information not available 08/04/2023 At What Age Did You Start Smoking Tobacco? 20 muljqsy76 Information not available 08/04/2023 Are You Passively Exposed To Smoke? Yes Information no t available 07/02/2023 How Much Tobacco Do You Smoke? 1 PPD Information not available 11/06/2022 What Types Of Sporting Activities Do You Participate In? None jukgdfh21 Information not available 08/04/2023 Do You Use Sunscreen Routinely? No [email or web address] Information not available 08/04/2023 Has Tobacco Cessation Counseling Been Provided? Yes [email or web address] Information not available 08/04/2023 On What Date Was Tobacco Cessation Counseling Provided? 08/04/2023 yjdokqk42 Information not available 08/04/2023 How Many Years Have You Smoked Tobacco? 40 kexpffq86 Information not available 08/04/2023 Do You Have Difficulty Walking Or Climbing Stairs? No hfhipxf50 Information not available 08/04/2023 Are You Currently In School? No Information not available 08/04/2023 What Contraceptive Method Was Reported At Start Of This Visit? None [email or web address] Information not available 08/04/2023 What Contraceptive Method Was Reported At End Of This Visit? None [email or web address] Information not available 08/04/2023 Do You Want To Talk About Contraception Or Prevention During Your Visit Today? No - I Do Not Want To Talk About Contraception Today Because I Am Here For Something Else yvzkxxy81 Information not available 08/04/2023 Do You Have Any Future Plans To Get ? No, I Don't Want To Become [email or web address] Information not available 08/04/2023 What Is Your Reason For Having No Contraceptive Method At Start Of This Visit? Abstinence maaqyap53 Information not available 08/04/2023 What Is Your Reason For Having No Contraceptive Method At End Of This Visit? Abstinence Information not available 08/04/2023 Sex: Female Functional Status Question Answer Note LastModified by Organizat ion Details LastModified Time Do you use any illicit or recreational drugs? No [email or web address] Information not available 07/10/2022 Do you or have you ever used any other forms of tobacco or nicotine? No sjruslt23 Information not available 08/04/2023 What is your level of alcohol consumption? None xujrhoa25 Information not available 07/10/2022 Do you or have you ever used smokeless tobacco? Never used smokeless tobacco Information not available 07/02/2023 Are you currently employed? No feojxza14 Information not available 08/04/2023 Do you have transportation difficulties? No Information not available 08/04/2023 What is your status? Not vkczwci53 Information no t available 08/04/2023 Are you able to walk? YESWOREST uxcsdjb40 Information not available 08/04/2023 Do you have difficulty doing errands alone? No ijvkhkz85 Information not available 08/04/2023 Are you able to care for yourself? Yes yoikcxr58 Information n ot available 08/04/2023 Do you have difficulty dressing or bathing? No kkjvyzy40 Information not available 08/04/2023 What is your exercise level? Occasional iznqipw89 Information not available 08/04/2023 Mental Status Question Answer Note LastModified by Organizat ion Details LastModified Time Do you feel stressed (tense, restless, nervous, or anxious, or unable to sleep at night)? [id number] Information not available 08/04/2023 Do you have difficulty concentrating, remembering or making decisions? Yes Information no t available 08/04/2023 Family History Relationship Description Onset Age of this Age Resolved Age Notes LastModified by Organization Details LastModified Time Mother Osteoporosis [email or web address] Not avai lable 07/10/2022 14:29:25 Mother Essential hypertension API-13 Not available 08:58:43 Medical History Condition Response Coronary Artery Disease N Gout N Kidney Stones N Hyperthyroidism N Hypothyroidism Y Depression Y COPD N GI Problems Y Anemia N MRSA exposure N Difficulty Swallowing N Anxiety Disorder N Meniere's disease N [...] Influenza, split virus, quadrivalent, PF 0 completed Rebecca hernandez [facility] & [place] 08/05/2022 14:49:09 Influenza, split virus, quadrivalent, PF 8 completed Rebecca [facility] & [place] 08/05/2022 14:49:09 Influenza, split virus, quadrivalent, PF 7 completed Rebecca hernandez [facility] & [place] 08/05/2022 14:49:09 COVID-19, mRNA, LNP-S, PF, 100 mcg/0.5mL dose or 50 mcg/0.25mL dose 1 completed Rebecca hernandez [facility] & [place] 08/05/2022 14:49:09 Influenza, split virus, quadrivalent, PF 9 completed Rebecca Espinosa null, [facility] & [place] 08/05/2022 14:49:09 Influenza, split virus, quadrivalent, PF 2 completed abhinav clark null, [facility] & [place] 07/10/2022 15:11:38 Influenza, split virus, quadrivalent, PF 3 completed Rebecca Espinosa null, [facility] & [place] 07/16/2023 15:24:35 zoster recombinant 3 completed Rebecca Espinosa null, [facility] & [place] 07/29/2023 17:23:13 Influenza, split virus, trivalent, PF 4 completed Tod Guerra MD [address] [place] [address],[address], [place], [address], [facility] & [place] 07/15/2024 16:16:24 COVID-19, mRNA, LNP-S, PF, 100 mcg/0.5mL dose or 50 mcg/0.25mL dose 1 completed Rebecca Espinosa null, [facility] & [place] 08/05/2022 14:49:09 COVID-19, mRNA, LNP-S, PF, 100 mcg/0.5mL dose or 50 mcg/0.25mL dose 1 completed Rebecca Espinosa null, [facility] & [place] 08/05/2022 14:49:09 COVID-19, mRNA, LNP-S, PF, 50 mcg/0.5 mL dose 1 completed Not Available [facility] 08/05/2023 20:11:02 Past Encounters Encounter ID Performer Location Encounter Start Date Encounter Closed Date Diagnosis/Indication Diagnosis SNOMED-CT Code Diagnosis ICD10 Code Diagnosis Note [id number] MD QUIRINO [facility] [address] [place] [address] 02/15/2025 14:00:30 02/15/2025 14:51:18 Mixed hyperlipidemia 696453963 E78.2 Patient returns for follow-up appointmen t today relative to a diagnosis of hyperlipid emia and treatment for such. Updated laboratory studies are being used relative to appropriat e treatment. Patient voices no side effect/mus cular complaints muscle weakness. Essential hypertension [id number] I10 Patient returns today for follow-up of a chronic diagnosis of hypertensi on. Outpatient surveillan ce as demonstrat ed good control, without any issues or complaints of side effect. Neuropathy due to diabetes mellitus 772979198 E10.40 Long-term current use of drug therapy 806800124 Z79.899 Narcotic drug user 97501 002 F11.90 Chronic ki dney disease stage 3A 851526257 N18.32 This represents a chronic process that has been medically stable. Currently remains asymptomat ic, with no change in status, and no change in progressio n diagnostic ally or from a treatment standpoint . she has no evidence of nephropath y this is likely just age-relate d decrease in function. Osteoporosis 21182421 M8 1.0 This represents a chronic process that has been stable on medication s for extended period of time. Currently there appears to be no toxicity or side effect and good response to treatment. For these reasons we will continue medication s as ordered. Moderate r ecurrent major depression 63741467 F33.1 Ongoing chronic treatment for major depressive disorder is reason for follow-up today. Patient states they are doing well, they perceive no side effect or negative issues with her current medication s. They perceive their mood to be well-adjus victoria, Chronic pain syndrome 37 2141533 G89.4 The patient is followed and monitored for chronic pain management with the use of chronic scheduled medication s. Screening appears to show no signs of diversion nor abuse potential. There monitored closely they are getting good reasonable pain control from the currently prescribed medication s. They are following the contractua l agreement with our practice. Chronic ly mphoid leukemia, disease 49867424 C91.10 This represents a chronic process that has been stable on medication s for extended period of time. Currently there appears to be no toxicity or side effect and good response to treatment. For these reasons we will continue medication s as ordered. Standardiz ed adult depression screening tool completed [id number] 82594 Z13.31 Appropriat e age related, gender related, and health risk related parameters were addressed today recommenda tions were made for appropriat e wellness studies as indicated. Fibromyalgia 326618237 M 79.7 The patient is followed and monitored for chronic pain management with the use of chronic scheduled medication s. Screening appears to show no signs of diversion nor abuse potential. There monitored closely they are getting good reasonable pain control from the currently prescribed medication s. They are following the contractua l agreement with our practice. Restless legs 05057480 G 25.81 on follow-up Amanda is doing much better but she is doing 1 mg twice a day through the course of the day that she is doing 2 mg at bedtime which seems to have her much better controlled . Will go on and prescribed for her with the desire to to continue her same dosing Sleep disorder 27608080 G47.01 This represents a chronic process that [...] Member ID Peña Member ID Guarantor Name 02/15/2025 1 [place]IC[place] Amanda Mai Stu [id number] Amanda Mai Stu 02/15/2025 2 [facility] [id number] [place] Oneill Stu [id number] Amanda Peraza Notes Date Note Type Note Provider Name and Address Organization Details Recorded Time 5 text/html DiabetesReported bypatient.Review finger sticks:fasting: Duration:chronic [...] assessment and plan. Tod Guerra MD [address] [facility],[address], [place], [address], [facility] [place] & [place] 02/15/2025 14:58:34 OBGyn Episode No OBEpisode recorded.
--- OUTSIDE RECORDS SUMMARY | 2025-04-05 11:14 | XMS_ITS | Clinical Summary ---
Author Organization [facility] [place] Address [address] [place] [address] Care Team Providers Care Emergency Physician Name Role Phone Dorian Guerra MD Primary Care Provider [phone] Allergies No known active allergies Medications ALPRAZolam (Xanax) 1 MG tablet TAKE 1 TABLET DAILY. 3 Active Aspirin Buf,CaCarb-MgCarb- MgO, 81 MG tablet TAKE 1 TABLET DAILY. 3 Active calcium carbonate (Os-Mark) 1250 (500 Ca) MG tablet 1500mg 0 Active cholecalciferol (Vitamin D-3) 50 MCG (2000 UT) tablet TAKE 2 TABLET Daily 5 Active cyclobenzaprine (Flexeril) 10 MG tablet TAKE 1 TABLET AT BEDTIME. 0 Active desvenlafaxine (Pristiq) 100 MG 24 hr tablet qd am 6 Active furosemide (Lasix) 40 MG tablet TAKE 2 TABLET Daily 3 Active lamoTRIgine (LaMICtal) 200 MG tablet 3 Active magnesium oxide (Mag-Ox) 400 MG tablet TAKE 4 TABLET Daily 6 Active Methylcellulose, Laxative, 500 MG tablet TAKE 2 TABLET Daily 5 Active morphine ER (Anne) 10 MG 24 hr capsule Take 1 capsule (10 mg) by mouth 1 (one) time each day. 6 Active Plecanatide (Trulance) 3 MG tablet Take 1 tablet daily 8 Active rOPINIRole (Requip) 1 MG tablet Take 1 tablet (1 mg) by mouth 4 (four) times a day. 6 Active zolpidem CR (Ambien CR) 12.5 MG ER tablet Take 1 tablet daily 5 Active Antiseptic Products, Misc. (IV Prep Wipes) 70 % pads USE DIRECTED. 9 Active Docusate Calcium (STOOL SOFTENER PO) 0 Active Potassium Chloride (KLOR-CON 10 PO) TAKE 2 TABLETS TWICE DAILY 3 Active ascorbic acid (Vitamin C) 1000 MG tablet Take 1 tablet (1,000 mg) by mouth. Active B Complex Vitamins (VITAMIN-B COMPLEX PO) Take by mouth. Once a day Active Calcium Polycarbophil (FIBER-CAPS PO) Take by mouth. daily Active gabapentin (Neurontin) 300 MG capsule every 12 (twelve) hours. Active valsartan (Diovan) 320 MG tablet Take 1 tablet (320 mg) by mouth 1 (one) time each day. 2 Active amLODIPine (Norvasc) 5 MG tablet Take by mouth 1 (one) time each day. Active oxyCODONE-acetamin ophen (Percocet) 5-325 MG tablet Acti ve pen needle, diabetic 31G X 5 MM misc 50 each if needed (for insulin administrati on). 50 each 2 Active pravastatin (Pravachol) 40 MG tablet Take 1 tablet (40 mg) by mouth 1 (one) time each day. 3 Active magnesium oxide (Mag-Ox) 400 (240 Mg) MG tablet TAKE 5 TABLETS BY MOUTH EVERY DAY 4 Active potassium chloride ER (Micro-K) 10 MEQ ER capsule 4 Active Insulin Infusion Pump Supplies ([employer] XC Infusion Set) miscIndications:Ty pe 1 diabetes mellitus with diabetic polyneuropathy (CMS/HCC) CHANGE EVERY TWO (2) TO THREE (3) DAYS 45 each 3 4 Active Insulin Infusion Pump Supplies (T:slim X2 3mL Cartridge) miscIndications:Ty pe 1 diabetes mellitus with diabetic polyneuropathy (CMS/HCC) Change every 2-3 days 45 each 3 4 Active glucagon 1 MG injection Inject entire contents for severe low blood glucose episode 1 kit 3 4 Active Insulin Lispro (HumaLOG) 100 UNIT/ML injection vialIndications:Ty pe 1 diabetes mellitus with diabetic polyneuropathy (CMS/HCC) INJECT UP TO 60 UNITS DAILY IN INSULIN PUMP 60 mL 5 Active glucose blood (Contour Next Test) test stripIndications:T ype 1 diabetes mellitus with diabetic polyneuropathy (CMS/HCC) USE THREE TIMES DAILY DX CODE E 10.65 270 strip 5 Active glucose blood (Contour Next Test) test stripIndications:T ype 1 diabetes mellitus with diabetic polyneuropathy (CMS/HCC) USE THREE TIMES DAILY DX CODE E 10.65 270 strip 3 4 025 Discontin ued(Reord er) Insulin Lispro (HumaLOG) 100 UNIT/ML injection vialIndications:Ty pe 1 diabetes mellitus with diabetic polyneuropathy (CMS/HCC) INJECT UP TO 60 UNITS DAILY IN INSULIN PUMP 60 mL 3 4 025 Discontin ued(Reord er) Active Problems Problem Noted Date Diagnosed Date Type 1 diabetes mellitus with hyperglycemia 07/13 Hypoglycemia 07/29/2024 Other fatigue 07/29/[address] 06/02/2024 Insulin pump titration 02/23/2024 Neuropathy 02/23/2024 Osteopenia of multiple sites 08/28/2022 Hyperlipidemia 06/07/2020 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 08/19/2019 Osteoporosis 01/12/2018 B-cell chronic lymphocytic leukemia 12/26/2017 Headache 06/19/2016 Restless legs 06/19/2016 Adult celiac disease 02/13/2016 Migraine without aura 02/08/2016 Tobacco dependence 02/08/2015 Diabetic hypoglycemia 11/03/2014 Essential (primary) hypertension 04/07/2013 Diabetic peripheral neuropathy 12/08/2012 Encounters Date Type Department Care Team Description 03/23/2025 Orders Only [facility] [address] [place] [address] Rubio Montana MD 03/23/2025 Orders Only [facility] [address] [place] [address] Rubio Montana MD 03/23/2025 Orders Only [facility] [address] [place] [address] Rubio Montana MD 03/23/2025 Orders Only [facility] [address] [place] [address] Rubio Montana MD 03/23/2025 Orders Only [facility] [address] [place] [address] Rubio Montana MD 03/23/2025 Orders Only [facility] [address] [place] [address] Rubio Montana MD 03/23/2025 Orders Only [facility] [address] [place] [address] Rubio Montana MD 03/09/2025 Telephone [facility] [address] [place] [address] Traci Nathan DO 03/09/2025 Refill [facility] [address] [place] [address] Traci Nathan DO Type 1 diabetes mellitus with diabetic polyneuropathy ([facility]/HCC) 03/02/2025 10:20 AM EDT Office Visit [facility]ocrinology [address] [place] [address] Traci Nathan DO Type 1 diabetes mellitus with hyperglycemia ([facility]/HCC) (Primary Dx); Essential (primary) hypertension; Osteopenia of multiple sites; Hypercalcemia; Fracture Risk Assessment Score (FRAX) indicating greater than 20% risk for major osteoporosis-related fracture 03/02/2025 Travel 02/15/2025 Telephone [facility] Endocrinology [address] [place] [address] Bijal Lambert, FACILITY WORKER from Last 3 Months Family History Medical History Relation Name Comments Coronary Artery Stenosis Other 1 Conversions - Other Other 2 3-vessel Coronary Artery Stenosis Relation Name Status Comments Other 1 Other 2 Social History Tobacco Use Types Packs/Day Years [...] on file Sexual Orientation Not on file Last Filed Vital Signs Vital Sign Reading Time Taken Comments Blood Pressure 155/73 03/02/2025 10:19 AM EDT Pulse 73 03/02/2025 10:19 AM EDT Temperature 36.6 C (97.8 F) 09/11/2022 4:44 PM EST Respiratory Rate 18 09/11/2022 4:44 PM EST Oxygen Saturation 93% 09/11/2022 4:44 PM EST Inhaled Oxygen Concentration - - Weight 66.7 kg (147 lb 0.8 oz) 03/02/2025 10:19 AM EDT Height 172.7 cm (5' 8 ) 03/02/2025 10:19 AM EDT Body Mass Index 22.36 03/02/2025 10:19 AM EDT Plan of Treatment Upcoming Encounters Date Type Department Care Team (Late st Contact Info) Description 06/01/2025 11:00 AM EDT [facility] [address] [place] [address] Traci Nathan DO [address] [address] 08/10/2025 12:40 PM EDT Office Visit [facility] End[facility] [address] [place] [address] Traci Nathan, [address] [place] [address] Health Maintenance Due Date Last Done Comments [facility]-Medicare Annual Wellness (AWV) 1960 [facility]-Infant/Child/Adol SDOH Screenings 1960 Diabetes: Dental Exam 1970 [facility]- SDOH Screenings 1978 [facility]-Adult SDOH Screenings 1978 [facility]-DTaP,Tdap,and Td Vaccines (1 - Tdap) 1979 CT Colonography 2005 Colonoscopy 2005 FIT-DNA 2005 FIT 2005 FOBT 2005 Sigmoidoscopy 2005 [facility]-Colorectal Cancer Screening 2005 [facility]-Breast Cancer Screening 2010 [facility]-RSV Vaccine: 60+ Years or (1 - Risk 60-74 years 1-dose series) 2020 [facility]-Bone Density Scan 08/12/2023 08/12/2022 [id number] Vaccine ( season) 2024 08/19/2021, 02/09/2021, 01/09/2021 [facility]-Diabetes: Hemoglobin A1C 11/30/2024, 08/11/2023, 05/26/2023, Additional history exists [facility]-Depression Screening 03/02/2026 03/02/2025 [facility]-HIV Screening Completed 09/11/2022 [facility]-Hepatitis C Screening Completed 09/11/2022 [facility]-Pneumococcal Vaccine: 50+ Years Completed 03/04/2024 [facility]-Zoster Vaccines Completed 03/04/2024, [facility]-Influenza Vaccine Completed 07/15/2024 , 07/16/2023, 07/20/2020, Additional history exists HPV Vaccines Aged Out No longer eligi ble based on patient's age to complete this topic [facility]-HIB Vaccines Aged Out No longer e ligible based on patient's age to complete this topic [facility]-Hepatitis A Vaccines Aged Out No longer eligible based on patient's age to complete this topic [facility]-IPV Vaccines Aged Out No longer e ligible based on patient's age to complete this topic [facility]-Rotavirus Vaccines Aged Out No lo nger eligible based on patient's age to complete this topic Procedures Procedure Name Priority Date/Time Associated Diagnosis Comments MANUAL DIFFERENTIAL Routine 03/23/2025 2 :27 PM EDT CELIAC PANEL REFLEX TO TITER Routine 03/23/2025 2:27 PM EDT CBC WITH AUTO DIFFERENTIAL Routine 03/23/2025 2:27 PM EDT VITAMIN B12, SERUM Routine 03/23/2025 2: 27 PM EDT LIPASE, PLASMA Routine 03/23/2025 2:27 PM EDT C-REACTIVE PROTEIN, PLASMA Routine 03/23/2025 2:27 PM EDT COMPREHENSIVE METABOLIC PANEL, PLASMA Routine 03/23/2025 2:27 PM EDT RENAL FUNCTION PANEL, PLASMA Routine 03/02/2025 11:35 AM EDT Osteopenia of multiple sites Hypercalcemia PTH INTACT TOTAL Routine 03/02/2025 11:3 5 AM EDT Osteopenia of multiple sites Hypercalcemia VITAMIN D 25 HYDROXY Routine 03/02/2025 11:35 AM EDT Osteopenia of multiple sites Hypercalcemia C-TELOPEPTIDE Routine 03/02/2025 11:35 AM EDT Osteopenia of multiple sites BONE SPECIFIC ALKALINE PHOSPHATASE Routine 03/02/2025 11:35 AM EDT Osteopenia of multiple sites POCT GLYCOSYLATED HEMOGLOBIN (HGB A1C) Routine 06/02/2024 10:04 AM EDT Type 1 diabetes mellitus with diabetic polyneuropathy (CMS/HCC) HEPATITIS C ANTIBODY - ED W/REFLEX TO HCV QUANT PCR STAT 09/11/2022 12:38 PM EST HIV 1/2 ANTIBODY/ANTIGEN SCREEN WITH REFLEX TO HIV I/II DIFFERENTIATION STAT 09/11/2022 12:38 PM EST DEXA BONE DENSITY Routine 08/12/2022 from Last 3 Months or Most Recently Relevant to Health Maintenance Results * (ABNORMAL) Celiac panel reflex to titer (03/23/2025 2:27 PM EDT) External Gliadin IgA 47.6(H) U/mL 03/25/2025 3:13 AM EDT [facility] Comment: Value Interpretation ----- <15.0 Antibody not detected > or = 15.0 Antibody detected External Gliadin IgG 1.7 U/mL 03/25/2025 3:13 AM EDT [facility] Comment: Value Interpretation ----- <15.0 Antibody not detected > or = 15.0 Antibody detected External Tissue Transglutaminase IgA Ab 11.0 U/mL 03/25/2025 3:56 AM EDT [facility] Comment: Value Interpretation ----- <15.0 Antibody not detected > or = 15.0 Antibody detected External Endomysial IgA Ab Titer NEGATIVE NEGATIVE 03/25/2025 6:15 AM EDT [facility] External IgA Quant 179 70 - 400 mg/dL 03/23/2025 3:43 PM EDT [facility] 03/23/2025 2:27 PM EDT 03/23/2025 2:47 PM EDT Rubio Montana MD LAB BLOOD ORDERABLES Final R esult [facility] [address] [place] [address], * Manual Differential (03/23/2025 2:27 PM EDT) External Band Neutrophil% 0.0 0.0 - 7.0 % 03/23/2025 9:26 PM EDT [facility] External Atypical Lymph% 0 0 - 1 % 03/23/2025 9:26 PM EDT [facility] External Metamyelocyte % 0 0 - 1 % 03/23/2025 9:26 PM EDT [facility] External Myelocyte % 0 0 - 1 % 03/23/2025 9:26 PM EDT [facility] External Promyelocyte% 0 0 % 03/23/2025 9:26 PM EDT [facility] External Blast% 0 0 % 9:26 PM EDT [facility] External Nucleated RBC%-Manual 0 0 - 1 /100{WBC} 03/23/2025 9:26 PM EDT [facility] External Smudge Cells 0 0 /100{WBC} 03/23/2025 9:26 PM EDT [facility] External RBC Morphology Comment NORMAL 03/23/2025 9:26 PM EDT [facility] External Platelet Morphology NORMAL 03/23/2025 9:26 PM EDT [facility] 03/23/2025 2:27 PM EDT 03/23/2025 2:45 PM EDT Rubio Montana MD LAB BLOOD ORDERABLES Final R esult [facility] [place] [address], * (ABNORMAL) CBC and Differential (03/23/2025 2:27 PM EDT) External WBC 9.3 3.8 - 10.8 10*3/uL 03/23/2025 9:26 PM EDT [facility] External Red Blood Cell (RBC) 4.30 3.80 - 5.20 10*6/uL 03/23/2025 9:26 PM EDT [facility] External Hemoglobin 14.2 12.0 - 16.0 g/dL 03/23/2025 9:26 PM EDT [facility] External Hematocrit 42.7 35.0 - 47.0 % 03/23/2025 9:26 PM EDT [facility] External MCV 99 80 - 100 fL 03/23/2025 9:26 PM EDT [facility] External MCH 33 26 - 35 pg 03/23/2025 9:26 PM EDT [facility] External MCHC 33 32 - 36 g/dL 03/23/2025 9:26 PM EDT [facility] External RDW 13.5 11.0 - 15.0 % 03/23/2025 9:26 PM EDT [facility] External Mean Platelet Volume 8.0 6.2 - 10.5 fL 03/23/2025 9:26 PM EDT [facility] External Platelet Count (Plt) 200 150 - 400 10*3/uL 03/23/2025 9:26 PM EDT [facility] External Neutrophil# 4.0 1.6 - 8.4 10*3/uL 03/23/2025 9:26 PM EDT [facility] External Lymphocyte# 4.7 0.4 - 5.1 10*3/uL 03/23/2025 9:26 PM EDT [facility] External Absolute Monocyte (Abs [place]) 0.5 0.0 - 1.2 10*3/uL 03/23/2025 9:26 PM EDT [facility] External Eosinophils# 0.2 0.0 - 0.8 10*3/uL 03/23/2025 9:26 PM EDT [facility] External Baso# 0.0 0.0 - 0.3 10*3/uL 03/23/2025 9:26 PM EDT [facility] External Neutrophils % 43.0 42.0 - 78.0 % 03/23/2025 9:26 PM EDT [facility] External Lymphocyte % 50.0(H) 11.0 - 47.0 % 03/23/2025 9:26 PM EDT [facility] External Monocyte % 5.0 0.0 - 11.0 % 03/23/2025 9:26 PM EDT [facility] External Eosinophil% 2.0 0.0 - 7.0 % 03/23/2025 9:26 PM EDT [facility] External Basophil % 0.0 0.0 - 3.0 % 03/23/2025 9:26 PM EDT [facility] External Nucleated RBC%-Auto 0.3 0.0 - 0.9 % 03/23/2025 9:26 PM EDT [facility] External Nucleated RBC Absolute 0.02 Not Estab. 10*3/uL 03/23/2025 9:26 PM EDT [facility] 03/23/2025 2:27 PM EDT 03/23/2025 2:45 PM EDT Rubio Montana MD LAB BLOOD ORDERABLES Final R esult Performing Organization Address [facility]/ZIP Co de Phone Number [facility] [address] [place] [address], * C-Reactive Protein, Plasma (03/23/2025 2:27 PM EDT) External C-Reactive Protein 0.14 0.00 - 0.49 mg/dL 03/23/2025 3:43 PM EDT [facility] 03/23/2025 2:27 PM EDT 03/23/2025 2:45 PM EDT Rubio Montana MD LAB BLOOD ORDERABLES Final R esult Performing Organization Address [facility]/ZIP Co de Phone Number [facility] [address] [place] [address], [place] [phone] * Lipase, Plasma (03/23/2025 2:27 PM EDT) External Lipase 13 13 - 60 U/L 03/23/2025 3:43 PM EDT [facility] 03/23/2025 2:27 PM EDT 03/23/2025 2:45 PM EDT us Rubio Montana MD LAB BLOOD ORDERABLES Final R esult Performing Organization Address [facility]/ZIP Co de Phone Number [facility] [address] [place] [address], [place] [phone] * (ABNORMAL) Vitamin B12, Serum (03/23/2025 2:27 PM EDT) External Vitamin B12 1,700(H) 232 - 1,245 pg/mL 03/23/2025 3:50 PM EDT [facility] 03/23/2025 2:27 PM EDT 03/23/2025 2:46 PM EDT Rubio Montana MD LAB BLOOD ORDERABLES Final R esult [facility] [address] [place] [address], * (ABNORMAL) Comprehensive Metabolic Panel, Plasma (03/23/2025 2:27 PM EDT) [facility] External Glucose 90 74 - 100 mg/dL 03/23/2025 3:43 PM EDT [facility] External BUN 11 6 - 20 mg/dL 03/23/2025 3:43 PM EDT [facility] External Creatinine Blood 1.03(H) 0.50 - 0.95 mg/dL 03/23/2025 3:43 PM EDT [facility] External BUN/Creat Ratio 11 10 - 20 (calc) 03/23/2025 3:43 PM EDT [facility] External Sodium 142 136 - 145 mmol/L 03/23/2025 3:43 PM EDT [facility] External Potassium 3.7 3.4 - 5.0 mmol/L 03/23/2025 3:43 PM EDT [facility] External Chloride 102 98 - 107 mmol/L 03/23/2025 3:43 PM EDT [facility] External Carbon Dioxide (CO2) 26 22 - 31 mmol/L 03/23/2025 3:43 PM EDT [facility] External Anion Gap (AG) 14 7 - 25 (calc) 03/23/2025 3:43 PM EDT [facility] External Calcium 10.1 8.6 - 10.2 mg/dL 03/23/2025 3:43 PM EDT [facility] External Total Protein 7.0 6.4 - 8.3 g/dL 03/23/2025 3:43 PM EDT [facility] External Albumin 4.7 3.5 - 5.2 g/dL 03/23/2025 3:43 PM EDT [facility] External Globulin 2.3 1.5 - 4.5 025 3:43 PM EDT [facility] External Albumin/Globulin Ratio 2.0 1.1 - 2.5 (calc) 03/23/2025 3:43 PM EDT [facility] External Bilirubin Total 0.2 0.1 - 1.2 mg/dL 03/23/2025 3:43 PM EDT [facility] External Alkaline Phosphatase 120 30 - 121 U/L 03/23/2025 3:43 PM EDT [facility] External AST (SGOT) 20 0 - 32 U/L 03/23/2025 3:43 PM EDT [facility] External ALT (SGPT) 17 0 - 33 U/L 03/23/2025 3:43 PM EDT [facility] External Estimated GFR 60 >=60 03/23/2025 3:43 PM EDT [facility] Comment: NOTE New calculation for GFR (CKD-EPI 2020) is formulated without race adjustment factors at the recommendation of the National Kidney Foundation and [place] Society [employer] Neph[employer]. This calculation has not been validated in women. For pediatric patients refer to https://www.kidney.org/professionals/KDOQI/gfr_calculatorPed 03/23/2025 2:27 PM EDT 03/23/2025 2:45 PM EDT Rubio Montana MD LAB BLOOD ORDERABLES Final R esult [facility] [place] [address], * Bone Specific Alkaline Phosphatase (03/02/2025 11:35 AM EDT) Bone Specific Alkaline Phosphatase 16.5 ug/L 03/02/2025 2:31 PM EDT [facility] Comment: BSAP (Ostase) Reference Values, Female, age 18 years and up: Premenopausal: 4.5 to 16.9 ug/L Postmenopausal: 7.0 to 22.4 ug/L Blood Venous blood specimen / Unknown Venipuncture / Unknown 03/02/2025 11:35 AM EDT 03/02/2025 11:36 AM EDT Traci Nathan DO LAB REF LAB BLOOD AND FLUID ORD Final Result [facility] [address] [place] [address] * C-Telopeptide (03/02/2025 11:35 AM EDT) C Telopeptide Beta Cross Linked Serum Result 302 pg/mL 03/04/2025 1:12 AM EDT [facility] [employer]) Blood Venous blood specimen / Unknown Venipuncture / Unknown 03/02/2025 11:35 AM EDT 03/02/2025 11:36 AM EDT Narrative [facility] [employer]) - 03/04/2025 1:12 AM EDT Premenopausal Females: 136-689 pg/mL Postmenopausal Females: 177-1015 pg/mL REFERENCE INTERVAL: C-Telopeptide, Lymy-Gxybn-Riqnti, Serum Access complete set of age- and/or gender-specific reference intervals for this test in the [facility] Test Directory ([employer]esti[employer]). Performed By: [facility] [employer] [address] [place] [id number] [employer] Teacher: Martin Rico MD, PhD CLIA Number: [id number] Traci Nathan DO LAB BLOOD ORDERABLES Final Result [facility]) [address] [place] [address] * Vitamin D 25 Hydroxy (03/02/2025 11:35 AM EDT) Vitamin D 25 Hydroxy 56.8 20.0 - 80.0 ng/mL 03/02/2025 2:37 PM EDT [facility] Blood Venous blood specimen / Unknown Venipuncture / Unknown 03/02/2025 11:35 AM EDT 03/02/2025 11:36 AM EDT Narrative [facility] - 03/02/2025 2:37 PM EDT Testing performed on [employer], standardized against NIST SRM 2972. When testing [...] BLOOD ORDERABLES Final Result Performing Organization Address [facility] Co de Phone Number [facility] [address] [place] [address] * (ABNORMAL) PTH, intact (03/02/2025 11:35 AM EDT) PTH Intact Total 164(H) 9 - 77 pg/mL 03/02/2025 2:03 PM EDT [facility] Blood Venous blood specimen / Unknown Venipuncture / Unknown 03/02/2025 11:35 AM EDT 03/02/2025 11:36 AM EDT Narrative [facility] - 03/02/2025 2:03 PM EDT Assay performed by immunoassay at the [facility]. Performed on [employer] chemiluminescent immunoassay, tractable to the World Health Organization's first international standard for PTH from the NIBS, Code 79/500. Results obtained from different test methods or kits cannot be used interchangeably. us Traci Nathan DO LAB BLOOD ORDERABLES Final Result Performing Organization Address [facility] Co de Phone Number [facility] [address] [place] [address] * (ABNORMAL) Renal Function Panel, Plasma (03/02/2025 11:35 AM EDT) Glucose, Plasma 231(H) 74 - 99 mg/dL 03/02/2025 1:54 PM EDT [facility] BUN, Plasma 14 8 - 23 mg/dL 03/02/2025 1:54 PM EDT [facility] Creatinine, Plasma 0.94 0.60 - 1.10 mg/dL 03/02/2025 1:54 PM EDT [facility] BUN/Creatinine Ratio 15 03/02/2025 1:54 PM EDT [facility] Sodium, Plasma 140 136 - 145 mmol/L 03/02/2025 1:54 PM EDT [facility] Potassium, Plasma 3.8 3.6 - 4.9 mmol/L 03/02/2025 1:54 PM EDT [facility] Chloride, Plasma 100 97 - 107 mmol/L 03/02/2025 1:54 PM EDT [facility] CO2, Plasma 27 22 - 29 mmol/L 03/02/2025 1:54 PM EDT [facility] Anion Gap 13 6 - 16 mmol/L 03/02/2025 1:54 PM EDT [facility] Total Calcium, Plasma 9.9 8.9 - 10.2 mg/dL 03/02/2025 1:54 PM EDT [facility] Phosphorus, Plasma 2.7 2.5 - 4.5 mg/dL 03/02/2025 1:54 PM EDT [facility] Albumin, Plasma 4.7 3.5 - 5.2 g/dL 03/02/2025 1:54 PM EDT [facility] eGFRcr 67.9 mL/min/1.7 3m*2 03/02/2025 1:54 PM EDT [facility] Comment:Reported eGFRcr in m L/min/1.73m2 is based the CKD-EPI 2020 equation that does not use a race coefficient. Blood Venous blood specimen / Unknown Venipuncture / Unknown 03/02/2025 11:35 AM EDT 03/02/2025 11:36 AM EDT us Traci Nathan DO LAB BLOOD ORDERABLES Final Result [facility] [address] [place] [address] * (ABNORMAL) POCT glycosylated hemoglobin (Hb A1C) (06/02/2024 10:04 AM EDT) [facility] POCT Hemoglobin A1C 6.7 <5.7% Non-Diabe tic % [facility] Kit Lot Number [id number] [facility] Kit Expiration Date 03/12/2026 [facility] Blood Venous blood specimen / Unknown 06/02/2024 10:04 AM EDT Bijal Lambert FACILITY WORKER POINT OF CARE TEST ENTER/ED IT ORDERABLES Final Result Performing Organization Address City/[facility]/ZIP Co de Phone Number [facility] [address] [place] [address] * HIV 1 & 2 Antibody/Antigen Screen (09/11/2022 12:38 PM EST) [facility] HIV 1 & 2 Antibody/Anti gen Screen Nonreactive Nonreactive 09/11/2022 2:46 PM EST [facility] Blood Venous blood specimen / Unknown Venipuncture / Unknown 09/11/2022 12:38 PM EST 09/11/2022 1:18 PM EST Result [facility] Hugo Willis MD LAB BLOOD ORDERABLES Final Result Performing Organization Address [facility]/ZIP Co de Phone Number HEALTHCARE LAB [address] [place] [address] * Hepatitis C Antibody - ED (09/11/2022 12:38 PM EST) [facility] Hepatitis C Antibody Negative Negative 09/11/2022 2:45 PM EST HEALTHCARE LAB Blood Venous blood specimen / Unknown Venipuncture / Unknown 09/11/2022 12:38 PM EST 09/11/2022 1:18 PM EST Hugo Willis MD LAB BLOOD ORDERABLES Final Result Performing Organization Address [facility]/ZIP Co de Phone Number HEALTHCARE LAB [address] [place] [address] * Dexa Bone Density (08/12/2022) Anatomical Region Laterality Modality L-spine Radiographic Karine ging Harsh Egan Sajan DO IMG DXA PROCEDURES Final Resul t from Last 3 Months or Most Recently Relevant to Health Maintenance Insurance MEDICARE [facility] Care Teams Emergency Physician Relationship Specialty Start Date End Date Dorian Guerra MD [address] [place] [address] PCP - General 02/23/21
--- OUTSIDE RECORDS SUMMARY | 2025-04-05 11:15 | XMS_ITS | Encounter Summary ---
Author Organization [facility] Address [address] [place] [address] Care Team Providers Care Medical Record Administrator Name Role Phone Dorian Guerra MD Primary Care Provider +1- [phone] Encounter Details Date Type Department Care Team (Late st Contact Info) Description 03/27/2023 Orders Only [facility] @ [facility] [address] [place] [address] Rubio Montana MD [address] [place] [address] Social History Tobacco Use Types Packs/Day Years [...] Visit [facility] [address] [place] [address] Traci Nathan DO [address] [place] [address] 08/10/2025 12:40 PM EDT Office Visit [facility] Endocrinology [address] [place] [address] Traci Nathan, DO [address] [place] [address] documented as of this encounter Procedures Procedure Name Priority Date/Time Associated Diagnosis Comments COMPREHENSIVE METABOLIC PANEL, PLASMA Routine 03/27/2023 1:59 PM EDT documented in this encounter Results * (ABNORMAL) Comprehensive Metabolic Panel, Plasma (03/27/2023 1:59 PM EDT) External Glucose 47(LL) 74 - 100 mg/dL 03/27/2023 4:13 PM EDT [facility] Comment: RESULTS RECHECKED. CRITICAL RESULTS CALLED TO AND ACCURATELY READ BACK BY: LUZ DOBSON RN ON: 03/27/2023 AT: 16:12 BY: External BUN 14 6 - 20 mg/dL 03/27/2023 4:13 PM EDT [facility] External Creatinine Blood 1.11(H) 0.50 - 0.95 mg/dL 03/27/2023 4:13 PM EDT [facility] External BUN/Creat Ratio 13 10 - 20 (calc) 03/27/2023 4:13 PM EDT [facility] External Sodium 143 136 - 145 mmol/L 03/27/2023 4:13 PM EDT [facility] External Potassium 3.9 3.4 - 5.0 mmol/L 03/27/2023 4:13 PM EDT [facility] External Chloride 102 98 - 107 mmol/L 03/27/2023 4:13 PM EDT [facility] External Carbon Dioxide 30 22 - 31 mmol/L 03/27/2023 4:13 PM EDT [facility] External Anion Gap (AG) 11 7 - 25 (calc) 03/27/2023 4:13 PM EDT [facility] External Calcium 9.6 8.6 - 10.2 mg/dL 03/27/2023 4:13 PM EDT [facility] External Total Protein 6.8 6.4 - 8.3 g/dL 03/27/2023 4:13 PM EDT [facility] External Albumin 4.5 3.5 - 5.2 g/dL 03/27/2023 4:13 PM EDT [facility] External Globulin 2.3 1.5 - 4.5 023 4:13 PM EDT [facility] External Albumin/Globulin Ratio 2.0 1.1 - 2.5 (calc) 03/27/2023 4:13 PM EDT [facility] External Bilirubin Total <0.2 0.1 - 1.2 mg/dL 03/27/2023 4:13 PM EDT [facility] External Alkaline Phosphatase 105 30 - 121 U/L 03/27/2023 4:13 PM EDT [facility] External AST (SGOT) 22 0 - 32 U/L 03/27/2023 4:13 PM EDT [facility] External ALT (SGPT) 23 0 - 33 U/L 03/27/2023 4:13 PM EDT [facility] External Estimated GFR 56(A) >=60 03/27/2023 4:13 PM EDT [facility] Comment: NOTE New calculation for GFR (CKD-EPI 2020) is formulated without race adjustment factors at the recommendation of the National Kidney Foundation and [employer]. This calculation has not been validated in women. For pediatric patients refer to https://www.kidney.org/professionals/KDOQI/gfr_calculatorPed 03/27/2023 1:59 PM EDT 03/27/2023 2:22 PM EDT us Rubio Montana MD LAB BLOOD ORDERABLES Final R esult [facility] [address] [place] [address], documented in this encounter Visit Diagnoses Not on filedocumented in this encounter Additional Health Concerns Assessment Noted Time A fall risk assessment has been complete d for the patient 02/19/2023 10:03 AM EDT documented as of this encounter Care Teams Medical Record Administrator Relationship Specialty Start Date End Date Dorian Guerra MD [address] [place] [address] PCP - General 02/23/21 documented as of this encounter
--- OUTSIDE RECORDS SUMMARY | 2025-04-05 11:15 | XMS_ITS | Encounter Summary ---
Author Organization [facility] Address [address] [place] [address] Care Team Providers Care Forming Press Operator Name Role Phone Dorian Guerra MD Primary Care Provider +1- [phone] Encounter Details Date Type Department Care Team (Late st Contact Info) Description 03/27/2023 Orders Only [facility] @ [facility] [address] [place] [address] Rubio Montana MD [address] [place] [address] Social History Tobacco Use Types Packs/Day Years [...] [facility] [address] [place] [address] Traci Nathan DO [address] [facility] [address] [place] [address] 08/10/2025 12:40 PM EDT Office Visit [facility] Endocrinology [address] [place] [address] Traci Nathan DO [address] [place] [address] documented as of this encounter Procedures Procedure Name Priority Date/Time Associated Diagnosis Comments CELIAC PANEL REFLEX TO TITER Routine 03/27/2023 1:59 PM EDT documented in this encounter Results * (ABNORMAL) Celiac panel reflex to titer (03/27/2023 1:59 PM EDT) External Gliadin IgA 50.8(H) U/mL 03/30/2023 6:52 AM EDT [facility] Comment: Value Interpretation ----- <15.0 Antibody not detected > or = 15.0 Antibody detected External Gliadin IgG 1.9 U/mL 03/30/2023 6:52 AM EDT [facility] Comment: Value Interpretation ----- <15.0 Antibody not detected > or = 15.0 Antibody detected External Tissue Transglutaminase IgA Ab 10.8 U/mL 03/30/2023 6:52 AM EDT [facility] Comment: Value Interpretation ----- <15.0 Antibody not detected > or = 15.0 Antibody detected External Endomysial IgA Ab Titer NEGATIVE NEGATIVE 03/30/2023 6:52 AM EDT [facility] External IgA Quant 159 70 - 400 mg/dL 03/27/2023 4:13 PM EDT [facility] 03/27/2023 1:59 PM EDT 03/27/2023 2:39 PM EDT us Rubio Montana MD LAB BLOOD ORDERABLES Final R esult [facility] [address] [id number] [phone] documented in this encounter Visit Diagnoses Not on filedocumented in this encounter Additional Health Concerns Assessment Noted Time A fall risk assessment has been complete d for the patient 02/19/2023 10:03 AM EDT documented as of this encounter Care Teams Forming Press Operator Relationship Specialty Start Date End Date Dorian Guerra MD [address] [place] [address] PCP - General 02/23/21 documented as of this encounter
--- OUTSIDE RECORDS SUMMARY | 2025-04-05 11:15 | XMS_ITS | Referral Summary ---
Author Organization [facility] Address [address] [place] [address] Care Team Providers Care Cigarette Maker Name Role Phone Dorian Guerra MD Primary Care Provider +1- [phone] Bert Jett MD Unavailable Bijal Sloan RN Unavailable Unavailable uXan Hayden PA-C Unavailable [phone] Alex Zuleta PA-C Unavailable [phone] Allergies No known active allergies Medications ALPRAZolam (XANAX) 1 MG tablet Take 1 tablet (1 mg total) by mouth 2 (two) times daily as needed. Max Daily Amount: 2 mg 01/16/2023 Active amLODIPine (NORVASC) 5 MG tablet Take 1 tablet (5 mg total) by mouth daily. 03/31/2023 Active ascorbic acid, vitamin C, (VITAMIN C) 1000 MG tablet Take 1 tablet (1,000 mg total) by mouth. Active cyclobenzaprine (FLEXERIL) 10 MG tablet Take 1 tablet (10 mg total) by mouth nightly. 03/31/2023 Active desvenlafaxine succinate (PRISTIQ) 100 MG 24 hr tablet Take 1 tablet (100 mg total) by mouth daily. 03/24/2023 Active furosemide (LASIX) 40 MG tablet Take 1 tablet (40 mg total) by mouth 2 (two) times daily. 03/31/2023 Active gabapentin (NEURONTIN) 300 MG capsule Take by mouth. 03/31/2023 Active glucagon injection Inject entire contents for severe low blood glucose episode 06/04/2022 Active insulin lispro (HumaLOG) 100 unit/mL injection Per patient's insulin pump regimen 08/15/2022 Active lamoTRIgine (LaMICtal) 200 MG tablet Take 1 tablet (200 mg total) by mouth 2 (two) times daily. 03/31/2023 Active magnesium oxide (MAG-OX) 400 mg (241.3 mg magnesium) tablet Take 5 tablets (2,000 mg total) by mouth daily. 01/31/2023 Active morphine (ALONZO) 10 mg 24 hr capsule Take 1 capsule (10 mg total) by mouth daily. Max Daily Amount: 10 mg 03/26/2023 Active oxyCODONE-aceta minophen (PERCOCET) 5-325 mg per tablet Active Trulance 3 mg Tab Take 1 tablet by mouth daily. 03/25/2023 Active potassium chloride (MICRO-K) 10 mEq CR capsule Take 2 capsules (20 mEq total) by mouth 2 (two) times daily. 03/31/2023 Active pravastatin (PRAVACHOL) 40 MG tablet Take 1 tablet (40 mg total) by mouth daily. 03/31/2023 Active rOPINIRole (REQUIP) 1 MG tablet Take 2 tablets (2 mg total) by mouth 2 (two) times daily. 03/31/2023 Active valACYclovir (VALTREX) 1000 MG tablet Take 1 tablet (1,000 mg total) by mouth 3 (three) times daily as needed. 01/01/2023 Active valsartan (DIOVAN) 320 MG tablet Take 1 tablet (320 mg total) by mouth daily. 03/31/2023 Active zolpidem (AMBIEN CR) 12.5 MG CR tablet Take 1 tablet (12.5 mg total) by mouth daily as needed. 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 08/19/2019 Osteoporosis 01/12/2018 B-cell chronic lymphocytic leukemia 12/26/2017 Restless legs 06/19/2016 Adult celiac disease 02/13/2016 Migraine without aura 02/08/2016 Diabetic hypoglycemia 11/03/2014 Essential (primary) hypertension 04/07/2013 Diabetic peripheral neuropathy 12/08/2012 Social History Tobacco Use Types Packs/Day Years Used Date Smoking Tobacco: Every Day Cigarettes Smokeless Tobacco: Never Tobacco Cessation:Ready to Q uit: Not Asked; Counseling Given: Not Answered Alcohol Use Standard Drinks/Week Comments Not Currently 0 (1 standard drink = 0.6 oz pur e alcohol) Interpersonal Safety Answer Date Record ed Family or friends hurt you Not on file 10/30 Family or friends insult you Not on file Family or friends threaten you Not on file 0 10/30/2023 Family or friends scream or curse at you Not on file 10/30/2023 Housing Stability Answer Date Recorded Living situation today Not on file Living situation problems Not on file 2023 Food Insecurity Answer Date Recorded Food run out past 12 months Not on file 10/13 Food did not last past 12 months Not on file 10/30/2023 Employment Answer Date Recorded Help finding and keeping a job Not on file 0 10/30/2023 Family and Community Support Answer Andrew e Recorded Help with Day to Day Activities Not on file 10/30/2023 Feeling Lonely or Isolated Not on file 10/30 Educational Attainment Answer Date Praveen rded Speak language other than Arabic at home Not on file 10/30/2023 Want help with school or training Not on file 10/30/2023 Depression Answer Date Recorded PHQ-2 Risk Not on file 10/30/2023 Disabilities Answer Date Recorded Difficulty concentrating Not on file 024 Difficulty doing errands alone Not on file 0 10/30/2023 Substance Use Answer Date Recorded Used prescription meds for non-medical reasons N ot on file 10/30/2023 Used illegal drugs past 12 months Not on file 10/30/2023 Comments No Sex and Gender Information Value Date Recorded Sex Assigned at Not on file Legal Sex Female 5:17 PM CDT Gender Identity Not on file Sexual Orientation Not on file Last Filed Vital Signs Vital Sign Reading Time Taken Comments Blood Pressure 148/76 05/14/2023 1:33 PM EDT Pulse 66 05/14/2023 1:33 PM EDT Temperature 36.3 C (97.3 F) 04/08/2023 11:41 AM EDT Respiratory Rate 18 05/14/2023 1:33 PM EDT Oxygen Saturation 98% 04/08/2023 11:41 AM EDT Inhaled Oxygen Concentration - - Weight 62.1 kg (137 lb) 05/14/2023 1:33 PM EDT Height 170.2 cm (5' 7 ) 05/14/2023 1:33 PM EDT Body Mass Index 21.46 05/14/2023 1:33 PM EDT Plan of Treatment Not on file Insurance MEDICARE PART A B Care Teams Cigarette Maker Relationship Specialty Start Date End Date Dorian Guerra MD [address] [place] [address] PCP - General General Internal Medicine 04/02/23 Bert Jett MD [address] [address] Medical Oncologist Hematology and Oncology 04/07/23 Bijal Sloan, RN Registered Nurse Oncology 04/07/23 Xuan Hayden PA-C [address] [address] Physician Manager Surgical Oncology 04/07/23 Alex Zuleta PA-C [address] [place] [address] Orthopedic Surgery 04/10/23
--- OUTSIDE RECORDS SUMMARY | 2025-04-05 11:15 | XMS_ITS | Encounter Summary ---
Author Organization [facility] Address [address] [place] [address] Care Team Providers Care Principal Java Developer Name Role Phone Dorian Guerra MD Primary Care Provider +1- [phone] Reason for Visit * Reason Onset Date Comments Med Refill Med Refill 07/30/2021 Encounter Details Date Type Department Care Team (Late st Contact Info) Description 07/24/[address] [facility] Endocrinology [address] [place] [id number] Harsh Moeller, DO [address] [address] Social History Tobacco Use Types [...] encounter Miscellaneous Notes * Telephone Encounter - Tete Gilliam RN - 07/30/2021 12:11 PM EDT RX for strips has been sent to [facility]. Pt is going to call them to see if that order is going to be coming soon. She will call us back to let us know if she wants to continue to get her strips from them or if she wants to move the RX to [facility]. documented in this encounter Plan of Treatment Upcoming Encounters Date Type Department Care Team (Late st Contact Info) Description 06/01/2025 11:00 AM EDT Office Visit [facility] Endocrinology [address] [place] [address] Traci Nathan, DO [address] [address] 08/10/2025 12:40 PM EDT Office Visit [facility] Endocrinology [address] [place] [address] Traci Nathan, DO [address] [address] documented as of this encounter Visit Diagnoses Not on filedocumented in this encounter Additional Health Concerns Assessment Noted Time A fall risk assessment has been complete d for the patient 03/28/2021 12:10 PM EDT documented as of this encounter Care Teams Principal Java Developer Relationship Specialty Start Date End Date Dorian Guerra MD [address] [place] [address] PCP - General 02/23/21 documented as of this encounter
--- OUTSIDE RECORDS SUMMARY | 2025-04-05 11:15 | XMS_ITS | Encounter Summary ---
Author Organization [facility] Address [address] [place] [address] Care Team Providers Care Manager Software Development Name Role Phone Dorian Guerra MD Primary Care Provider +1- [phone] Reason for Visit * Reason Comments Med Refill Encounter Details Date Type Department Care Team (Late st Contact Info) Description 10/27/2021 Refill [facility] Endocrinology [address] [place] [address] Harsh Moeller, DO [address] [address] Social History Tobacco Use Types [...] Description 06/01/2025 11:00 AM EDT [facility] [address] [place] [address] Traci Nathan, DO [address] [address] 08/10/2025 12:40 PM EDT Office Visit [facility] Endocrinology [address] [place] [address] Traci Nathan DO [address] [place] [address] documented as of this encounter Visit Diagnoses Not on filedocumented in this encounter Additional Health Concerns Assessment Noted Time A fall risk assessment has been complete d for the patient 03/28/2021 12:10 PM EDT documented as of this encounter Care Teams Manager Software Development Relationship Specialty Start Date End Date oDrian Guerra MD [address] [place] [id number] PCP - General 02/23/21 documented as of this encounter
[2025-04-05 11:24] LABS: Basophils # 0.1 K/mm3 (0-0.2); Basophils % 0.6 % (0.1-2.0); Eosinophils # 0.1 Kmm3 (0.0-0.4); Eosinophils % 1.2 % (0.1-12.0); Hematocrit 41.1 % (37.0-47.0); Hemoglobin 13.5 g/dL (12.2-16.2); Immature Granulocytes # 0.03 10^3uL; Immature Granulocytes % 0.3 %; Lymphocytes # 4.6 K/mm3 (0.7-4.5); Lymphocytes % 47.6 % (10-50); Mean Corpuscular HGB Conc 32.8 g/dL (31.8-35.4); Mean Corpuscular Hemoglobin 32.6 pg (27.0-31.2); Mean Corpuscular Volume 99.3 fl (81-99); Mean Platelet Volume 9.8 fl (7.4-10.4); Monocytes # 0.4 K/mm3 (0.1-1.0); Monocytes % 4.5 % (1.7-9.3); Neutrophils # 4.4 K/mm3 (1.8-7.8); Neutrophils % 45.8 % (37.0-80.0); Nucleated Red Blood Cells # 0 10^3/uL; Nucleated Red Blood Cells % 0 %; Platelet Count 181 K/mm3 (142-424); Red Blood Count 4.14 M/mm3 (4.20-5.40); Red Cell Distribution Width 12.6 % (11.5-17.5); Red Cell Distribution Width-SD 46.3 fL; White Blood Count 9.6 K/mm3 (4.8-10.8)
[2025-04-05 11:41] LABS: Alanine Aminotransferase 23 U/L (12-78); Albumin Level 4.3 g/dl (3.5-5.0); Albumin/Globulin Ratio 1.7 (1.1-1.8); Alkaline Phosphatase 100 U/L (38-126); Anion Gap 3.9 mEq/L (5-15); Aspartate Amino Transferase 33 U/L (14-36); Bilirubin,Total 0.4 mg/dl (0.2-1.3); Blood Urea Nitrogen 12 mg/dl (7-17); Calcium 10.7 mg/dl (8.4-10.2); Carbon Dioxide 32 mmol/L (22.0-30.0); Chloride 103 mmol/L (98-107); Estimated Glomerular Filt Rate 63 ml/min (>60); GFR (African American) 76 ML/MIN (>60); Globulin 2.5 g/dL (1.3-3.2); Glucose 155 mg/dl (74-100); Lactate Dehydrogenase 186 U/L (313-618); Potassium 3.9 mmoL/L (3.5-5.1); Sodium 135 mmol/L (136-145); Total Protein,Serum 6.8 g/dl (6.3-8.2)
== END 2025-04-05 11:25 | disposition home or self-care (01) ==
LOC: INF 11:10
PROVIDERS: PCP Internal Medicine; Visit Provider Internal Medicine Medical Oncology
DX: C91.10 Chronic lymphocytic leukemia of B-cell type not having achieved remission (principal)
CPT/HCPCS: 36415; 80053; 83615; 85025